=== PATIENT | male | born 1955 | race Caucasian/White ===

== ENCOUNTER 2021-10-31 09:19 | Outpatient (CLI) | payer OTHER, SELFPAY ==
--- NOTE | 2021-10-31 10:34 | ECG_ITS ---
Measurements Intervals [place] Rate: 63 P: 62 MN: 167 QRS: 5 QRSD: 88 T: 4 QT: 392 QTc: 404 Interpretive Statements SINUS RHYTHM INCOMPLETE RIGHT BUNDLE BRANCH BLOCK BASELINE ARTIFACT- I, II, III, AVR, AVL BORDERLINE ECG Electronically Signed On 10-31-2021 10:49:29 FIELD SERVICE SUPERVISOR by Piotr Harris D.O.
[2021-10-31 11:18] LABS: Basophils Percent Auto 0.4 % (0.2-1.2); Eosinophils Absolute Auto 0.2 K/mm3 (0-0.3); Eosinophils Percent Auto 2.7 % (0-4.4); Hematocrit 44.8 % (42.0-52.0); Hemoglobin 15.5 g/dL (14.0-18.0); Immature Granulocyte Absolute 0.03 K/mm3 (0.00-0.031); Immature Granulocyte Percent A 0.4 % (0-0.5); Lymphocytes Absolute Auto 2.05 K/mm3 (0.9-3.2); Lymphocytes Percent Auto 26.2 % (18.3-44.2); Mean Corpuscular HGB Conc 34.6 g/dl (32-36); Mean Corpuscular Hemoglobin 32.4 pg (26-34); Mean Corpuscular Volume 93.7 fl (80-100); Mean Platelet Volume 10.7 fl (7.4-10.4); Monocytes Absolute Auto 0.9 K/mm3 (0.1-0.6); Monocytes Percent Auto 11.2 % (2.6-8.5); Neutrophils Absolute Auto 4.6 K/mm3 (1.3-6.7); Neutrophils Percent Auto 59.1 % (45.5-73.1); Platelet Count Result 245 k/mm3 (150-375); Red Blood Count 4.78 M/mm3 (4.6-6.20); Red Cell Distribution Width 12.4 % (11.5-14.5); White Blood Count 7.8 K/mm3 (4.5-10.0)
[2021-10-31 11:30] LABS: Alanine Aminotransferase 34 U/L (4-50); Albumin Level 4.6 g/dL (3.5-5.1); Alkaline Phosphatase 74 U/L (38-126); Anion Gap 8 mmol/L (8-16); Aspartate Amino Transferase 28 U/L (17-59); Blood Urea Nitrogen 15 mg/dL (9-20); Calcium 9.5 mg/dL (8.4-10.2); Carbon Dioxide 27 mmol/L (22-30); Chloride 103 mmol/L (98-107); Estimated Glomerular Filt Rate > 60; Glucose 86 mg/dL (65-110); Potassium 4.2 mmol/L (3.4-5.0); Sodium 138 mmol/L (137-145)
[2021-10-31 11:42] LABS: Prothrombin Time 13.5 Seconds (11.1-14.7)
[2021-10-31 11:43] LABS: Partial Thromboplastin Time 31.7 SECONDS (22.3-36.8)
== END 2021-10-31 09:20 | disposition home or self-care (01) ==
LOC: ANHSURGERY 09:24
PROVIDERS: PCP Internal Medicine; Visit Provider Urology
DX: Z01.818 Encounter for other preprocedural examination (principal); C61 Malignant neoplasm of prostate; I45.10 Unspecified right bundle-branch block; Z51.81 Encounter for therapeutic drug level monitoring; Z79.899 Other long term (current) drug therapy
CPT/HCPCS: 36415; 80053; 85025; 85610; 85730; 86850; 86900; 86901; 93005

== ENCOUNTER 2021-11-13 09:15 | Inpatient (IN) | payer OTHER, MEDICARE, SELFPAY ==
[2021-10-31 09:39] VITALS: BMI 33.4
--- NOTE | 2021-10-31 10:10 | PC.NURSE ---
Report to the Outpatient Waiting Room, entrance under the green pavilion located off [facility], at time _0600 on date __11/11/21 . OR Time: . - You and your visitor will be asked a series of questions to screen for COVID 19 for your protection. - A mask is required within the hospital. - NO VISITORS ALLOWED AT THIS TIME Preoperative COVID Testing Requirements: No COVID Test needed if: (proof is required; if not received patient will have Rapid Test prior to entry) - Patient has received COVID Vaccine at least 14 days prior to procedure date or - Patient has positive COVID test result within last 90 days of surgery date. COVID Test needed if above criteria is not met If not COVID vaccinated a COVID test must be conducted within 72 hours of surgery and patient is asked to isolate self from time of testing until procedure. You will go to the [facility] for your COVID testing. The [facility] Testing site is located at the corner of [address] [facility]. You will only be called if COVID results are positive and your surgeon may reschedule your elective surgery date. Patients may have clear liquids (water, carbonated beverages, clear teas, apple juice) until 3 hours prior to surgery with a maximum of 20 ounces. - No food from midnight until time of surgery - Infants may have breast milk until 4 hours before surgery, infant formula 6 hours prior to surgery. - Children will be allowed to drink immediately following surgery. If applicable, please bring a bottle or sippy cup to assist with drinking. Juice, water, soda, and popsicles are readily available. For infants on formula, please bring formula the day of surgery. Pacifiers are allowed. Take the following medications with a SIP of water the morning of surgery: ___NONE Medications to discontinue per physician NO ASPIRIN,IBUPROFEN,ALEVE,MOTRIN 7 DAYS PRE OP Date to take last dose Please no make-up, nail serbian, hairspray, perfume, deodorant, or body powder the day of surgery. No jewelry (including any body piercings) or valuables the day of surgery, leave them at home. Please take a shower or bath the night before, or the morning of, surgery with an antibacterial soap. Wear comfortable, loose fitting clothing. Children are encouraged to wear pajamas. - Jewelry must be removed prior to entering the operating room. Rings and piercings that are not removed may be cut off. - The hospital will not accept responsibility for valuables. - Please leave all valuables, including medications, at home the day of surgery. If you are going home after surgery, a licensed wrecking car driver must drive you home. - NO public transportation without another adult. - We recommend that an adult stay with you for 24 hours following discharge. - We also recommend that you do not drive, make important decision, drink alcoholic beverages, or take any drugs that were not prescribed by your health care provider for at least 24 hours after your discharge time. For Pediatric surgeries, we recommend two adults accompany the child home (only one inside the building at this time). Follow any additional instructions given to you from your surgeon. Telephone instructions given to __PT and asked if any additional questions and then verbalized understanding. Patient advised to call surgeon office or pre surgery nurse liaison [phone] if any additional questions.
[2021-10-31 10:25] VITALS: BP 140/90; PULSE 71; RESP 18; TEMP 36.7; O2SAT 98
[2021-11-11] VITALS (8 sets, daily range): BP systolic 99–136; BP diastolic 64–85; PULSE 60–76; RESP 10–20; TEMP 35.6–36.2; O2SAT 91–100
--- NOTE | 2021-11-11 06:51 | WPDANESEPPF ---
Anes - Initial Pre Proc Eval Procedure: Operation Date: 11/11/21 07:30 Proposed Procedures p Robotic Assisted Laparoscopic Nerve Sparing Prostatectomy with Possible Pelvic Lymph Node Dissection - Kurtis Plaza MD Date/Time: 11/11/21 06:51 Surgeon: Kurtis Plaza MD Pre Op Diagnosis: prostate cancer Patient Data Age: 66 Gender: M Height: 1.83 m Weight: 111.8 kg Last Vital Signs Temp 36.7 C 10/31/21 10:25 Pulse 71 10/31/21 10:25 Resp 18 10/31/21 10:25 BP 140/90 10/31/21 10:25 Pulse Ox 98 10/31/21 10:25 Allergies Allergy/AdvReac Type Severity Reaction Status Date / Time No Known Allergies Allergy Verified 11/11/21 06:09 Home Medications Medication Instructions Recorded Confirmed Type losartan 100 mg tablet See Rx Instructions .ROUTE 09/04/21 11/11/21 Rx .COMPLEX #90 tablet atorvastatin 10 mg PO HS 10/31/21 11/11/21 History calcipotriene [Dovonex] 1 applic TOPICAL PRN PRN 10/31/21 10/31/21 History hydrochlorothiazide 25 mg PO DAILY 10/31/21 11/11/21 History mometasone 1 applic TOPICAL PRN PRN 10/31/21 10/31/21 History Patient hx anesthesia problems: none Family hx anesthesia problems: none Results Review: All pre-operative results and documents have been reviewed as part of the pre-operative evaluation. PENDING SALE TO [facility] Past Medical History Medical History ETOH abuse 4-5 drinks every other day Hyperlipidemia Hypertension Surgical History Surgical History Hx of cataract removal with insertion of prosthetic lens September 2020 and October 2020 Family History Family History Mother Patient's mother is in good health Sibling Patient's brother is in good health Father Family history of emphysema Patient's father is Social History Social History Social History: quit smoking 20 years ago, 1-1.5 PPd x 20 years prior Smoking packs per day: 1.5 Smoking cigarettes per day: 30.0 Years smoked: 25 Smoking pack-years: 37.50 Smoking status: Former smoker Tobacco type: cigarettes Smoking end date: 10/04/03 Alcohol intake: current Drinks per week: 14 Living arrangements: with family Spiritual care concerns: No Anes - Eval Final PreProcedure Day of Procedure 11/11/21 06:51 Patient weight: obese Heart: regular rate and rhythm Lungs: clear to auscultation Airway: Mallampati scale class II Neurological: alert and oriented Last oral intake: >/= 8 hours ASA classification: III Emergent: no Anesthetic plan: proceed Anesthesia type and monitoring: general ETT and standard monitoring Results Review: All pre-operative results and documents have been reviewed as part of the pre-operative evaluation. Informed Consent: The patient's anesthetic plan and its attendant risks and benefits were discussed with the patient/family/POA. Questions were solicited and answers provided to the satisfaction of the patient/family/POA.
[2021-11-11] MEDS: LACTATED RINGERS 1,000 ML 30 ML IV CONT ×2 (06:54→11:38)
--- NOTE | 2021-11-11 07:20 | WPDHPUPDATE1 ---
History and Physical Update Update Date/Time: 11/11/21 07:20 History and Physical has been reviewed, including an updated exam of the patient. There are NO changes in the patient's condition. Risks, benefits, and alternatives have been discussed and questions answered. Patient agrees to proceed with procedure. Proced with robotic assist nerve sparing prostatectomy with possible pelvic lymph node dissection
[2021-11-11] MEDS: ceFAZolin 2 GM/D5W 50 ML 2 GM/50 ML BAG IVPB (07:29)
[2021-11-11] MEDS: BUPIVACAINE HCL 0.5% PF 30 ML VIAL INFILTRATE ×2 (08:26→11:15)
--- NOTE | 2021-11-11 11:22 | P.OP_ITS ---
Procedure Note - Detailed Date of Procedure 11/11/21 Pre-op Diagnosis prostate cancer Post-op Diagnosis same Procedure Performed Robotic assisted nerve-sparing prostatectomy with bilateral pelvic lymphadenectomy Surgeon Kurtis Plaza MD Anesthesia general Description of Procedure Patient is taken to the operative suite correctly identified. Once anesthesia was obtained he was placed in dorsal lithotomy position prepped and draped usual sterile fashion. Eighteen Indonesian Lewis with 20 cc were placed in the balloon. Supraumbilical incision was made carried down to the rectus fascia. Veress needle was inserted in the abdomen insufflated to 15 mmHg pressure. Camera port was placed under direct vision. Working ports were then placed in appropriate location. Patient was placed in steep Trendelenburg position and the robot was docked. Posterior approach was taken. Seminal vesicles were dissected out in their entirety the vas were transected. Plane between the prostate and rectum was developed. Bladder was then taken down the space of Retzius was developed. Puboprostatic were taken down. Endopelvic fascia had been opened bilaterally. Dorsal venous complex was isolated using 0 Vicryl. This was secured to the pubic bone. He then had a bladder neck sparing procedure performed. The posterior sheath was incised and the seminal vesicles were visualized. Pedicles were clipped. Bilateral nerve-sparing was performed however the left side was taken more liberally given the amount of cancer and firmness of the prostate. Dorsal venous complex was transected. Urethra was then also transected. Specimen was placed in Endo-Catch bag. Bilateral pelvic lymphadenectomies were performed with the boundaries being the external iliac vein, obturator nerve, Andriy's ligament common bifurcation of the vessels. The right pelvic lymph nodes packet was identified using a clip. These also were placed in the end Endo-Catch bag. Hemostasis was adequate at this time. Surgicel was placed in the obturator fossa was then over the neurovascular bundles. A Daniel stitch was then placed using 0 Vicryl. The lock suture was then used in a running fashion to approximate the bladder neck to the urethra. There was good mucosa to mucosa approximation. Eighteen Indonesian Lewis was placed with 10 cc in the balloon. Bladder was filled with 200 cc of saline. There was no evidence of extravasation at this time. All lap count needle counts sponge counts and needle counts were correct. The robot was then undocked. Specimen was brought out through the midline incision. This was then closed using 0 Vicryl in a running fashion. Subcuticular stitches were then placed. The port sites were anesthetized with 1% lidocaine. He Jesus-Still drain was then placed with a 4th arm port site. Patient tolerated procedure well without any complications taken recovery stable condition. Estimated Blood Loss 100 Drains Yes Packing No Pathology yes Complications No immediate complications Condition stable Disposition PACU
[2021-11-11] MEDS: fentaNYL CITRATE INJ (*CRX) 100 MCG/2 ML VIAL 25 MCG IV PUSH ×8 (11:45→12:20)
[2021-11-11] MEDS: MORPHINE SULFATE (*CRX) 2 MG/ML INJ 1 MG IV PUSH (13:14)
[2021-11-11] MEDS: LACTATED RINGERS 1,000 ML 125 ML IV CONT ×2 (14:05→22:06)
[2021-11-11] MEDS: HYDROcodone/acetaminophen (*CRX) 5-325 MG TABLET 2 TAB PO (16:23)
--- NOTE | 2021-11-11 16:25 | PC.NURSE ---
This patient, Mingo Huerta, was admitted to [facility]. Patient oriented to hospital policies and general routines including ID bracelet, bed and alarms, visiting hours, pain management, procedures, bathroom and other care routines, personal items, smoking policy, room service/diet, and visiting hours. Information on how to activate the Rapid Response Team has been discussed. Patient are encouraged to report perceived risks to care and to ask questions if they do not understand what they are told or what they should do.
[2021-11-11] MEDS: DOCUSATE SODIUM 100 MG CAPSULE PO (17:11)
[2021-11-11] MEDS: KETOROLAC 15 MG/ML VIAL (*BKC) IV PUSH ×2 (18:43→23:58)
--- NOTE | 2021-11-11 19:11 | PC.NURSE ---
REPORT GIVEN TO EZEKIEL LAWRENCE.
[2021-11-11] MEDS: ATORVASTATIN 10 MG TABLET PO (21:36)
[2021-11-12 04:00] VITALS: BP 135/80; PULSE 72; RESP 18; TEMP 36.7; O2SAT 94
[2021-11-12 04:39] LABS: Hematocrit 40.2 % (42.0-52.0); Hemoglobin 13.5 g/dL (14.0-18.0)
[2021-11-12 04:49] LABS: Anion Gap 4 mmol/L (8-16); Blood Urea Nitrogen 11 mg/dL (9-20); Calcium 8.8 mg/dL (8.4-10.2); Carbon Dioxide 29 mmol/L (22-30); Chloride 101 mmol/L (98-107); Estimated CRCL calculation 84 ml/min; Estimated Glomerular Filt Rate > 60; Glucose 108 mg/dL (65-110); Sodium 134 mmol/L (137-145)
[2021-11-12 06:00] VITALS: RESP 20
[2021-11-12] MEDS: LACTATED RINGERS 1,000 ML 125 ML IV CONT ×2 (06:20→20:36)
[2021-11-12] MEDS: ONDANSETRON INJ 4 MG/2 ML VIAL IV PUSH ×3 (06:41→17:47)
[2021-11-12 08:00] VITALS: BP 157/82; PULSE 74; RESP 20; TEMP 36.7; O2SAT 94
--- NOTE | 2021-11-12 08:13 | WPDANESPN ---
Anes - Prog Note Post-Op Date/Time: 11/12/21 08:13 Cardiovascular status: normal Respiratory status: normal Airway patency: baseline Mental status: baseline Post-Op hydration status: normal Vital Signs: Last Vital Signs Temp 36.7 C 11/12/21 04:00 Pulse 72 11/12/21 04:00 Resp 20 11/12/21 06:00 BP 135/80 11/12/21 04:00 Pulse Ox 94 11/12/21 04:00 Pain Score (VAS): 310 I/O: Intake & Output 11/11/21 11/12/21 11/12/21 23:59 07:59 15:59 Intake Total 2370 1000 Output Total 630 410 Balance 1740 590 Laboratory Tests 11/12/21 04:23 11/12/21 04:23 11/12/21 11/12/21 04:23 04:23 Hgb 13.5 L Hct 40.2 L Sodium 134 L Potassium 4.0 Chloride 101 Carbon Dioxide 29 Anion Gap 4 L BUN 11 Creatinine 1.00 Estim Creat Clear Calc 84 Estimated GFR > 60 Glucose 108 Calcium 8.8 Post-procedural complaints: none Patient Feedback: Patient satisfied with anesthetic care.
[2021-11-12] MEDS: hydroCHLOROthiazide 25 MG TABLET PO (09:01)
[2021-11-12] MEDS: DOCUSATE SODIUM 100 MG CAPSULE PO ×2 (09:01→16:38)
[2021-11-12] MEDS: levoFLOXacin 500 MG TABLET PO (09:01)
[2021-11-12] MEDS: KETOROLAC 15 MG/ML VIAL (*BKC) IV PUSH (09:22)
--- NOTE | 2021-11-12 13:32 | WPDUROPN2 ---
Progress Note: A&P Assessment and Plan (1) Prostate cancer: Code(s): C61 - Malignant neoplasm of prostate Status: Acute Assessment and Plan: Will keep tonight d/t ongoing nausea and vomiting. Re-start IV fluids, slowly re-introduce oral fluids and po intake. Encouarge use of Incentive spirometer and activity. He is aware that a BM is typically delayed after surgery. I think his nausea is secondary to constipation and or anesthesia/pain medications. He refuses to take narcotics at this time d/t worsening constipation, we will suggest Tylenol instead for pain. Subjective Subjective Date/Time Seen: 11/12/21 13:32 POD #1 Robotic assisted nerve-sparing prostatectomy with bilateral pelvic lymphadenectomy Patient doing well, he tolerated oatmeal for breakfast but has a lack of appetite now d/t nausea, passing flatus and pain is under control. He has not had any narcotics today d/t fear of worsening constipation. He is nauseated, has had one emesis episode today, and feels the need to have a BM but is constipated, which I explained is normal post op. He continues on a stool softner. He has a low grade temp of 99, denies chest pain or shortness of breath. He has a post covid cough, which is not new for him. CALEB drain output is 55cc this shift. Urine is draining to gravity in cordon. Review of Systems Cardiovascular: Cardiovascular: Denies chest pain and Denies diaphoresis Respiratory: Respiratory: Reports no additional respiratory complaints Gastrointestinal: Gastrointestinal: Denies abdominal pain, Reports constipation, Reports nausea and Reports vomiting Genitourinary: Genitourinary: Reports hematuria, Denies dysuria and Denies flank pain Exam Resp: Effort & Inspection: normal respiratory effort Cardio: Rate: regular rate GI: Inspection: incision (all are well approximated, no drainage, edema or redness) GI Palp: Yes Soft to palpation and Yes Tenderness to palpation present (GI) : General: Yes no CVA tenderness Urinary Catheter: Urinary Catheter: patent and draining, urine clear and urine pink Extrem: General: no edema Objective Data Vital Signs Vital Signs: Vital Signs - 24 hr 11/11/21 14:59 11/11/21 20:00 11/12/21 04:00 Temperature 96.1 F L 98.0 F Pulse Rate 70 76 72 Respiratory Rate 16 20 18 Blood Pressure 119/81 136/79 135/80 Pulse Oximetry 91 94 94 11/12/21 06:00 11/12/21 08:00 Temperature 98.0 F Pulse Rate 74 Respiratory Rate 20 20 Blood Pressure 157/82 H Pulse Oximetry 94 Intake/Output Intake/Output: Intake & Output 11/09/21 11/10/21 11/11/21 11/12/21 23:59 23:59 23:59 23:59 Intake Total 3420 1560 Output Total 700 410 Balance 2720 1150 Meds/Results Medications: Active Medications Generic Name Dose Route Start Last Admin Trade Name Freq PRN Reason Stop Dose Admin Hydrocodone Bitart/Acetaminophen 1 tab 11/11/21 12:52 Hydrocodone/Acetaminophen (*Crx) 5-325 Mg Tablet PO Q6H PRN Pain Rated 1-3 Hydrocodone Bitart/Acetaminophen 2 tab 11/11/21 12:52 11/11/21 16:23 Hydrocodone/Acetaminophen (*Crx) 5-325 Mg Tablet PO 2 tab Q6H PRN Administration Pain Rated 4-6 Atorvastatin Calcium 10 mg 11/11/21 21:00 11/11/21 21:36 Atorvastatin 10 Mg Tablet PO 10 mg HS ARMIDA Administration Docusate Sodium 100 mg 11/11/21 17:00 11/12/21 09:01 Docusate Sodium 100 Mg Capsule PO 100 mg BID ARMIDA Administration Hydrochlorothiazide 25 mg 11/12/21 09:00 11/12/21 09:01 Hydrochlorothiazide 25 Mg Tablet PO 25 mg DAILY ARMIDA Administration Hyoscyamine 0.125 mg 11/11/21 12:52 Hyoscyamine Sulfate 0.125 Mg Tablet SUBLINGUAL Q4H PRN Bladder Spasm Lactated Ringer's 1,000 mls @ 125 mls/hr 11/11/21 12:52 11/12/21 06:20 Lr - Lactated Ringers Iv IV CONT 125 mls/hr .Q8H ARMIDA Administration Levofloxacin 500 mg 11/12/21 09:00 11/12/21 09:01 Levofloxacin 500 Mg Tablet PO 500 mg DAILY ARMIDA Admini
--- NOTE | 2021-11-12 13:39 | PC.NURSE ---
Pt vomited after lunch, zofran given. Karina notified. Will wait to discharge pt until he feels better
[2021-11-12 14:00] VITALS: BP 152/85; PULSE 84; RESP 16; TEMP 37.2; O2SAT 94
[2021-11-12] MEDS: ACETAMINOPHEN 500 MG TABLET 1000 MG PO (16:37)
[2021-11-12 20:00] VITALS: BP 165/97; PULSE 80; RESP 18; TEMP 36.8; O2SAT 80
[2021-11-12] MEDS: hydrALAZINE HCL 20 MG/ML VIAL 5 MG IV PUSH (21:51)
[2021-11-12 22:30] VITALS: BP 162/91; PULSE 78; RESP 18; O2SAT 96
[2021-11-13] VITALS (8 sets, daily range): BP systolic 150–169; BP diastolic 83–91; PULSE 80–90; RESP 18–20; TEMP 36.3–37.5; O2SAT 94–98
--- NOTE | ~2021-11-13 | XR_ITS ---
EXAMINATION: XR abdomen NG/feed tube rechec DATE: 11/12/2021 20:13 INDICATION: Nasogastric tube advancement. TECHNIQUE: An upright view of the abdomen was obtained. COMPARISON: Abdomen radiograph at 7:57 PM FINDINGS: There is gaseous distention of the proximal colon. The small bowel is normal in caliber. Th e nasogastric tube tip is in the stomach. The lower abdomen is excluded. IMPRESSION: 1. Nasogastric tube tip in the stomach. 2. Gaseous distention of the proximal colon, likely adynamic ileus. Reviewed, dictated and finalized at location A. MA SURGEON
--- NOTE | ~2021-11-13 | XR_ITS ---
EXAMINATION: XR abdomen/kub 1V DATE: 11/12/2021 18:49 INDICATION: Nausea and vomiting. TECHNIQUE: A supine view of the abdomen on 2 radiographs was obtained. COMPARISON: CT abdomen and pelvis 10/06/2013 FINDINGS: There is gaseous distention of the colon. The small bowel is normal in caliber. A surgical drain overlies the pelvis. There is extensive soft tissue gas in the pelvis. IMPRESSION: 1. Gaseous distention of the colon, likely adynamic ileus. 2. Extensive soft tissue gas in the pelvis, likely from recent injury. Reviewed, dictated and finalized at location A. BLAST OR SHOTBLAST EQUIPMENT TENDER
--- NOTE | ~2021-11-13 | XR_ITS ---
EXAMINATION: XR abdomen NG/feed tube insert DATE: 11/12/2021 20:12 INDICATION: Nasogastric tube placement. TECHNIQUE: An upright view of the abdomen was obtained. COMPARISON: None. FINDINGS: The lower abdomen and right lateral aspect of the abdomen are excluded. The nasogastric tub e tip is at the gastroesophageal junction. IMPRESSION: 1. Nasogastric tube tip at the gastroesophageal junction. Reviewed, dictated and finalized at location A. RVISOR RUBBER COVERING
[2021-11-13] MEDS: ONDANSETRON INJ 4 MG/2 ML VIAL IV PUSH ×2 (00:28→07:16)
[2021-11-13] MEDS: LACTATED RINGERS 1,000 ML 125 ML IV CONT ×3 (05:11→22:42)
--- NOTE | 2021-11-13 07:57 | WPDUROPN2 ---
Progress Note: A&P Assessment and Plan (1) Prostate cancer: Code(s): C61 - Malignant neoplasm of prostate Status: Acute Assessment and Plan: Doing well from urologic standpoint but now with ileus and coffee ground emesis /fluid. Will obtain cbc anc cmp Will need GI consult for their input (2) Ileus: Code(s): K56.7 - Ileus, unspecified Status: Acute Assessment and Plan: Continue with NGT and NPO. GI consult for coffee ground emesis. Subjective Subjective Date/Time Seen: 11/13/21 07:57 Post Op day: 2 Principal diagnosis: adenocarcinoma of prostate Interval history: Mingo had nausea with emesis last night. KUB with possibly adynamic ileus. NG tube place now with coffee ground drainage. Denied any prior history of gi issues. Review of Systems Review of Systems: All systems reviewed & are unremarkable except as noted in HPI and below Gastrointestinal: Gastrointestinal: Reports coffee ground emesis Exam Const: General: cooperative Resp: Effort & Inspection: normal respiratory effort Cardio: Rate: regular rate Rhythm: regular rhythm GI: Inspection: distended Objective Data Vital Signs Vital Signs: Vital Signs - 24 hr 11/12/21 08:00 11/12/21 14:00 11/12/21 20:00 Temperature 36.7 C 37.2 C 36.8 C Pulse Rate 74 84 80 Respiratory Rate 20 16 18 Blood Pressure 157/82 H 152/85 H 165/97 H Pulse Oximetry 94 94 80 L 11/12/21 22:30 11/13/21 00:00 11/13/21 04:30 Temperature 36.6 C 36.3 C L Pulse Rate 78 83 90 Respiratory Rate 18 18 18 Blood Pressure 162/91 H 160/91 H 164/90 H Pulse Oximetry 96 96 96 11/13/21 06:00 Temperature Pulse Rate Respiratory Rate 20 Blood Pressure Pulse Oximetry Intake/Output Intake/Output: Intake & Output 11/10/21 11/11/21 11/12/21 11/13/21 23:59 23:59 23:59 23:59 Intake Total 3420 2760 1000 Output Total 700 1340 1070 Balance 2720 1420 -70 Meds/Results Medications: Active Medications Generic Name Dose Route Start Last Admin Trade Name Freq PRN Reason Stop Dose Admin Acetaminophen 1,000 mg 11/12/21 16:16 11/12/21 16:37 Acetaminophen 500 Mg Tablet PO 1,000 mg Q6H PRN Administration Mild Pain (1-3) or Fever Hydrocodone Bitart/Acetaminophen 2 tab 11/11/21 12:52 11/11/21 16:23 Hydrocodone/Acetaminophen (*Crx) 5-325 Mg Tablet PO 2 tab Q6H PRN Administration Pain Rated 4-6 Atorvastatin Calcium 10 mg 11/11/21 21:00 11/12/21 20:38 Atorvastatin 10 Mg Tablet PO Not Given HS [facility] Docusate Sodium 100 mg 11/11/21 17:00 11/12/21 16:38 Docusate Sodium 100 Mg Capsule PO 100 mg BID ARMIDA Administration Hydrochlorothiazide 25 mg 11/12/21 09:00 11/12/21 09:01 Hydrochlorothiazide 25 Mg Tablet PO 25 mg DAILY ARMIDA Administration Hyoscyamine 0.125 mg 11/11/21 12:52 Hyoscyamine Sulfate 0.125 Mg Tablet SUBLINGUAL Q4H PRN Bladder Spasm Lactated Ringer's 1,000 mls @ 125 mls/hr 11/11/21 12:52 11/13/21 05:11 Lr - Lactated Ringers Iv IV CONT 125 mls/hr .Q8H ARMIDA Administration Levofloxacin 500 mg 11/12/21 09:00 11/12/21 09:01 Levofloxacin 500 Mg Tablet PO 500 mg DAILY ARMIDA Administration Losartan Potassium 100 mg 11/12/21 21:00 11/12/21 20:39 Losartan Potassium 100 Mg Tablet PO Not Given HS [facility] Morphine Sulfate 1 mg 11/11/21 12:52 11/11/21 13:14 Morphine Sulfate (*Crx) 2 Mg/Ml Inj IV PUSH 1 mg Q2H PRN Administration Pain Rated 7-10 Naloxone HCl 0.1 mg 11/11/21 12:52 Naloxone Hcl 0.4 Mg/Ml Vial IV PUSH Q2M PRN Opiate Reversal Ondansetron HCl 4 mg 11/11/21 12:52 11/13/21 07:16 Ondansetron Inj 4 Mg/2 Ml Vial IV PUSH 4 mg Q6H PRN Administration Nausea And Vomiting Radiology Results: ITS Impressions Abdomen X-Ray 11/12/21 20:15 IMPRESSION: 1. Nasogastric tube tip in the stomach. 2. Gaseous distention of the proximal colon, likely adynamic ileus.
[2021-11-13] MEDS: FAMOTIDINE 20 MG/2 ML VIAL IV PUSH (08:47)
[2021-11-13 10:58] LABS: Basophils Percent Auto 0.2 % (0.2-1.2); Eosinophils Percent Auto 0.1 % (0-4.4); Hematocrit 40.7 % (42.0-52.0); Hemoglobin 14.1 g/dL (14.0-18.0); Immature Granulocyte Absolute 0.06 K/mm3 (0.00-0.031); Immature Granulocyte Percent A 0.5 % (0-0.5); Lymphocytes Absolute Auto 1.05 K/mm3 (0.9-3.2); Lymphocytes Percent Auto 8.5 % (18.3-44.2); Mean Corpuscular HGB Conc 34.6 g/dl (32-36); Mean Corpuscular Hemoglobin 33.2 pg (26-34); Mean Corpuscular Volume 95.8 fl (80-100); Mean Platelet Volume 10.5 fl (7.4-10.4); Monocytes Percent Auto 7.8 % (2.6-8.5); Neutrophils Absolute Auto 10.3 K/mm3 (1.3-6.7); Neutrophils Percent Auto 82.9 % (45.5-73.1); Platelet Count Result 180 k/mm3 (150-375); Red Blood Count 4.25 M/mm3 (4.6-6.20); Red Cell Distribution Width 12.7 % (11.5-14.5); White Blood Count 12.4 K/mm3 (4.5-10.0)
[2021-11-13 11:07] LABS: Alanine Aminotransferase 19 U/L (4-50); Alkaline Phosphatase 60 U/L (38-126); Anion Gap 4 mmol/L (8-16); Aspartate Amino Transferase 27 U/L (17-59); Bilirubin,Total 0.8 mg/dL (0.2-1.3); Blood Urea Nitrogen 9 mg/dL (9-20); Calcium 8.7 mg/dL (8.4-10.2); Carbon Dioxide 30 mmol/L (22-30); Chloride 97 mmol/L (98-107); Estimated CRCL calculation 103 ml/min; Estimated Glomerular Filt Rate > 60; Glucose 116 mg/dL (65-110); Potassium 3.1 mmol/L (3.4-5.0); Sodium 131 mmol/L (137-145)
[2021-11-13] MEDS: POTASSIUM CHLORIDE INJ 40 MEQ in SODIUM CHLORIDE 0.9% IV 500 ML 130 MEQ IVPB (13:35)
--- NOTE | 2021-11-13 14:56 | WPDGICN ---
Assessment and Plan Assessment and plan (1) Coffee ground emesis: Code(s): K92.0 - Hematemesis Status: Acute Assessment and Plan: will start iv protonix bid monitor for more signs of bleeding and proceed with EGD tomorrow, differential could be esophagitis, ulcers, etc (2) Ileus: Code(s): K56.7 - Ileus, unspecified Status: Acute Assessment and Plan: ngt in place, will reassess tomorrow npo status now (3) Gastro-esophageal reflux disease without esophagitis: Code(s): K21.9 - Gastro-esophageal reflux disease without esophagitis Status: Acute Assessment and Plan: iv protonix (4) Prostate cancer: Code(s): C61 - Malignant neoplasm of prostate Status: Acute Assessment and Plan: surgery went well by urology (5) History of colon polyps: Code(s): Z86.010 - Personal history of colonic polyps Status: Acute GI Consult Note Consult date/time: 11/13/21 14:56 Reason for consult: coffee ground emesis HPI: Mingo Huerta is a 66 year old male who had robotic assisted nerve-sparing prostatectomy with bilateral pelvic lymphadenectomy 11/11/21, day after surgery started with nausea and vomiting coffee ground material, NGT was placed that showed more dark material and KUB showed ileus. He has not had BM but passing gas. says that patient lately has been having more GERD symptoms, using tums. He also lost about 20 lb after doing keto diet, drinking lemon with vinegar. He never had EGD, had colonoscopy 2019 with polyps removed. He was started on pepcid iv. Review of Systems Constitutional: Constitutional: Denies chills Eyes: Eyes: Reports no additional eye complaints ENT: Reports Normal hearing present Cardiovascular: Cardiovascular: Denies chest pain Respiratory: Respiratory: Denies dyspnea Gastrointestinal: Gastrointestinal: Reports heartburn, Reports nausea and Reports vomiting Genitourinary: Comments: cordon in place Musculoskeletal: Musculoskeletal: Denies back pain Integumentary/Breasts: Skin/Breast: Denies dry skin Neurologic: Denies headache(s) Psychiatric: Psychiatric: Denies behavioral changes [facility] Past Medical History Medical History (Updated 11/13/21 @ 15:02 by Lb Ascencio MD) Coffee ground emesis ETOH abuse 4-5 drinks every other day Hyperlipidemia Hypertension Surgical History Surgical History Hx of cataract removal with insertion of prosthetic lens September 2020 and October 2020 Family History Family History Mother Patient's mother is in good health Sibling Patient's brother is in good health Father Family history of emphysema Patient's father is Social History Social History Social History: quit smoking 20 years ago, 1-1.5 PPd x 20 years prior Smoking packs per day: 1.5 Smoking cigarettes per day: 30.0 Years smoked: 25 Smoking pack-years: 37.50 Smoking status: Former smoker Tobacco type: cigarettes Smoking end date: 10/04/03 Alcohol intake: current Drinks per week: 14 Substance use: never Living arrangements: with family Spiritual care concerns: No Meds Home Medications and Allergies Home Medications Medication Instructions Recorded Confirmed Type atorvastatin 10 mg PO HS 10/31/21 11/11/21 History calcipotriene [Dovonex] 1 applic TOPICAL PRN PRN 10/31/21 10/31/21 History hydrochlorothiazide 25 mg PO DAILY 10/31/21 11/11/21 History mometasone 1 applic TOPICAL PRN PRN 10/31/21 10/31/21 History docusate sodium 100 mg PO BID #10 cap 11/12/21 Rx hydrocodone-acetaminophen 1 tablet PO Q6H PRN #20 tablet 11/12/21 Rx losartan 100 mg PO DAILY 11/12/21 11/12/21 History ondansetron 4 mg PO Q8H #20 tablet 11/12/21 Rx sulfamethoxazole-trimethoprim 1 tablet PO Q12H #
--- NOTE | 2021-11-13 19:10 | PC.NURSE ---
1800: RN changed linens on bed and patient's gown.
--- NOTE | 2021-11-13 19:58 | PM.IMCN ---
Assessment and Plan Assessment and plan (1) Coffee ground emesis: Code(s): K92.0 - Hematemesis Status: Acute Assessment and Plan: the patient has an NG tube in was started on Protonix. GI has been consulted. The patient is NPO. Possible EGD per GI specialist tomorrow. Continue to monitor H&H every 6 hours. Transfuse when appropriate. At this time they appear to be normal. (2) Ileus: Code(s): K56.7 - Ileus, unspecified Status: Acute Assessment and Plan: The patient has an NG tube to the right nare. according to the nursing staff the patient had completely filled a 1-1/2 canisters. The patient has some very faint hypoactive bowel sounds. I did encourage the patient to get up and walk around and he stated that he is passing gas and passed some liquid stool. May consider surgical consult. (3) Prostate cancer: Code(s): C61 - Malignant neoplasm of prostate Status: Acute Assessment and Plan: Status post prostatectomy. The patient continues to have a CALEB drain. The patient appears to have p.o. Levaquin on his Dec however the patient is NPO at this time. May consider changing p.o. medication to IV. Postop care per Urology. (4) Hyperlipidemia: Code(s): E78.5 - Hyperlipidemia, unspecified Status: Acute Assessment and Plan: The patient is NPO at this time. The patient had been dieting and exercising for weight loss. (5) Essential (primary) hypertension: Code(s): I10 - Essential (primary) hypertension Status: Acute Assessment and Plan: The patient had been on losartan and hydrochlorothiazide at home. However he is NPO so I did p.r.n. hydralazine. (6) Hypokalemia: Code(s): E87.6 - Hypokalemia Status: Acute Assessment and Plan: replace as necessary. Patient has an NG drain as well as a CALEB drain. Which may cause his potassium to be low. The patient was also on hydrochlorothiazide. check magnesium level HPI Data of Consult Consult date: 11/13/21 Requesting Physician: Kurtis Plaza MD Primary Care Provider: Josemanuel Banegas, Consult Narrative Narrative: Mingo Huerta is a 66 year old male who has a history of having prostate cancer and on 11/11/2019 to had a robotic assisted nerve-sparing prostatectomy with bilateral pelvic lymphadenectomy. The patient became nauseated was having emesis. Patient also had a low-grade temperature of 99?. The patient currently has a CALEB drain to the right side of his mid abdomen. The patient had been doing well but then developed an ileus and coffee-ground emesis. GI was consulted. The patient was started on IV Protonix. He has an NG tube in place with copious amount of drainage. The patient was up walking around when I saw him today. He states that he is passing gas. He also stated that he had a liquid stool and it made him feel somewhat better today. His last colonoscopy was 2018 was some polyps removed. He has never had an EGD. Dr. Sotelo GI specialist has seen the patient. According to GI notes the patient may proceed with an EGD tomorrow. the patient's H&H is 14.1 and 40.7 this morning. His sodium is 131. However he does have drainage from his CALEB drain as well as an NG tube. His potassium was found to be 3.1 today and was supplemented.The patient had been admitted to inpatient and the hospitalist group was asked to consult on the patient on the date of service of 11/13/2021. Review of Systems Review of Systems: All systems reviewed & are unremarkable except as noted in HPI and below Constitutional: Constitutional: Reports as per HPI and Reports no additional constitutional complaints Eyes: Eyes: Reports as per HPI and Reports no additional eye complaints ENT: Reports system reviewed and no additional complaints, except as documented and Reports Normal hearing present Cardiovascular: Cardiovascular: Reports no additional cardiovascular complain
[2021-11-13] MEDS: LORazepam INJ (*CRX) 2 MG/ML VIAL 0.5 MG IV PUSH (20:55)
[2021-11-13] MEDS: PANTOPRAZOLE SODIUM IV 40 MG VIAL IV PUSH (20:55)
[2021-11-13 22:36] LABS: Hematocrit 39.9 % (42.0-52.0); Hemoglobin 13.7 g/dL (14.0-18.0)
[2021-11-14] VITALS (8 sets, daily range): BP systolic 143–163; BP diastolic 75–96; PULSE 81–97; RESP 16–22; TEMP 35.7–37; O2SAT 95–99
[2021-11-14 05:34] LABS: Hematocrit 40.2 % (42.0-52.0); Hemoglobin 13.7 g/dL (14.0-18.0)
[2021-11-14 05:46] LABS: Alanine Aminotransferase 16 U/L (4-50); Albumin Level 3.4 g/dL (3.5-5.1); Alkaline Phosphatase 58 U/L (38-126); Anion Gap 6 mmol/L (8-16); Aspartate Amino Transferase 23 U/L (17-59); Bilirubin,Total 0.8 mg/dL (0.2-1.3); Blood Urea Nitrogen 11 mg/dL (9-20); CRP 0.8 mg/dL (<1.0); Calcium 8.6 mg/dL (8.4-10.2); Carbon Dioxide 29 mmol/L (22-30); Chloride 99 mmol/L (98-107); Estimated CRCL calculation 103 ml/min; Estimated Glomerular Filt Rate > 60; Glucose 106 mg/dL (65-110); Lipase 31 U/L (23-300); Magnesium 1.6 mg/dL (1.6-2.3); Potassium 3.2 mmol/L (3.4-5.0); Sodium 134 mmol/L (137-145)
[2021-11-14] MEDS: hydrALAZINE HCL 20 MG/ML VIAL 10 MG IV PUSH (06:48)
[2021-11-14 06:55] LABS: Thyroid Stimulating Hormone Reflex 0.153 uIU/mL (0.465-4.68)
[2021-11-14] MEDS: LACTATED RINGERS 1,000 ML 125 ML IV CONT ×2 (07:10→17:32)
--- NOTE | 2021-11-14 07:35 | WPDUROPN2 ---
Progress Note: A&P Assessment and Plan (1) Prostate cancer: Code(s): C61 - Malignant neoplasm of prostate Status: Acute Assessment and Plan: Doing well from urology standpoint. Will see what CALEB output is today. Most likely will remove drain prior to his discharge. (2) Ileus: Code(s): K56.7 - Ileus, unspecified Status: Acute Assessment and Plan: Appears to be improving clinically. Passing flatus and having bowel movement. Patient scheduled for EGD today. Recommendations regarding NG tube and diet per GI (3) Coffee ground emesis: Code(s): K92.0 - Hematemesis Status: Acute Assessment and Plan: To have EGD today. Hemodynamically stable (4) Hypokalemia: Code(s): E87.6 - Hypokalemia Status: Acute Assessment and Plan: Replace as needed. Await labs from today Subjective Subjective Date/Time Seen: 11/14/21 07:35 Post Op day: 3 Principal diagnosis: Adenocarcinoma prostate Interval history: Date is feeling much better today. He is passing gas and had 2 small bowel movements. Appreciate GI and hospitalist input. Mingo to have a EGD today. Review of Systems Review of Systems: All systems reviewed & are unremarkable except as noted in HPI and below Exam Const: General: cooperative and comfortable Resp: Effort & Inspection: normal respiratory effort Cardio: Rate: regular rate Rhythm: regular rhythm GI: GI Palp: Yes Soft to palpation, No Tenderness to palpation present (GI) and No Guarding due to palpation present (GI) Urinary Catheter: Urinary Catheter: patent and draining and urine clear Skin: General skin exam: normal color Neuro: General: patient oriented x3 Speech: normal speech Objective Data Vital Signs Vital Signs: Vital Signs - 24 hr 11/13/21 07:45 11/13/21 14:17 11/13/21 20:00 Temperature 37.2 C 37.2 C 37.5 C Pulse Rate 85 84 80 Respiratory Rate 18 18 18 Blood Pressure 150/83 H 169/83 H 165/87 H Pulse Oximetry 95 98 95 11/13/21 22:00 11/14/21 04:00 11/14/21 06:00 Temperature 36.3 C L Pulse Rate 86 Respiratory Rate 18 20 20 Blood Pressure 163/89 H Pulse Oximetry 95 Intake/Output Intake/Output: Intake & Output 02/05/2511/12/21 11/13/21 11/14/21 23:59 23:59 23:59 23:59 Intake Total 3420 2760 3000 1000 Output Total 700 1340 2265 1980 Balance 2720 1420 735 -625 Meds/Results Medications: Active Medications Generic Name Dose Route Start Last Admin Trade Name Freq PRN Reason Stop Dose Admin Acetaminophen 1,000 mg 11/12/21 16:16 11/12/21 16:37 Acetaminophen 500 Mg Tablet PO 1,000 mg Q6H PRN Administration Mild Pain (1-3) or Fever Docusate Sodium 100 mg 11/11/21 17:00 11/13/21 16:32 Docusate Sodium 100 Mg Capsule PO Not Given BID ARMIDA Hydralazine HCl 10 mg 11/13/21 21:54 Hydralazine Hcl 20 Mg/Ml Vial IV PUSH Q8H PRN Blood Pressure - High Hyoscyamine 0.125 mg 11/11/21 12:52 Hyoscyamine Sulfate 0.125 Mg Tablet SUBLINGUAL Q4H PRN Bladder Spasm Lactated Ringer's 1,000 mls @ 125 mls/hr 11/11/21 12:52 11/14/21 07:10 Lr - Lactated Ringers Iv IV CONT 125 mls/hr .Q8H ARMIDA Administration Levofloxacin 500 mg 11/12/21 09:00 11/13/21 15:29 Levofloxacin 500 Mg Tablet PO Not Given DAILY ARMIDA Lorazepam 0.5 mg 11/13/21 19:59 11/13/21 20:55 Lorazepam Inj (*Crx) 2 Mg/Ml Vial IV PUSH 0.5 mg Q6H PRN Administration Anxiety Morphine Sulfate 1 mg 11/11/21 12:52 11/11/21 13:14 Morphine Sulfate (*Crx) 2 Mg/Ml Inj IV PUSH 1 mg Q2H PRN Administration Pain Rated 7-10 Naloxone HCl 0.1 mg 11/11/21 12:52 Naloxone Hcl 0.4 Mg/Ml Vial IV PUSH Q2M PRN Opiate Reversal Ondansetron HCl 4 mg 11/11/21 12:52 11/13/21 07:16 Ondansetron Inj 4 Mg/2 Ml Vial IV PUSH 4 mg Q6H PRN Administration Nausea And Vomiting Pantoprazole Sodium 40 mg 11/13/21 21:00 11/13/21 20:55 Pantoprazol
[2021-11-14 08:02] LABS: Free T4 Free Thyroxine Reflex 1.26 ng/dL (0.78-2.19)
[2021-11-14] MEDS: PANTOPRAZOLE SODIUM IV 40 MG VIAL IV PUSH ×2 (08:15→20:17)
[2021-11-14] MEDS: POTASSIUM CHLORIDE INJ 40 MEQ in SODIUM CHLORIDE 0.9% IV 500 ML 130 MEQ IVPB (10:10)
[2021-11-14 10:17] LABS: Hematocrit 44.1 % (42.0-52.0); Hemoglobin 15.1 g/dL (14.0-18.0)
--- NOTE | 2021-11-14 10:48 | WPDANESEPPF ---
Anes - Initial Pre Proc Eval Procedure: Operation Date: 11/14/21 15:30 Proposed Procedures p Esophagogastroduodenoscopy - Lb Ascencio MD Date/Time: 11/14/21 10:48 Surgeon: Kurtis Plaza MD Pre Op Diagnosis: prostate cancer Patient Data Age: 66 Gender: M Height: 1.83 m Weight: 110.6 kg Last Vital Signs Temp 36.3 C L 11/14/21 04:00 Pulse 86 11/14/21 04:00 Resp 20 11/14/21 06:00 BP 163/89 H 11/14/21 04:00 Pulse Ox 95 11/14/21 04:00 Allergies Allergy/AdvReac Type Severity Reaction Status Date / Time No Known Allergies Allergy Verified 11/14/21 11:00 Home Medications Medication Instructions Recorded Confirmed Type atorvastatin 10 mg PO HS 10/31/21 11/11/21 History calcipotriene [Dovonex] 1 applic TOPICAL PRN PRN 10/31/21 10/31/21 History hydrochlorothiazide 25 mg PO DAILY 10/31/21 11/11/21 History mometasone 1 applic TOPICAL PRN PRN 10/31/21 10/31/21 History docusate sodium 100 mg PO BID #10 cap 11/12/21 Rx hydrocodone-acetaminophen 1 tablet PO Q6H PRN #20 tablet 11/12/21 Rx losartan 100 mg PO DAILY 11/12/21 11/12/21 History ondansetron 4 mg PO Q8H #20 tablet 11/12/21 Rx sulfamethoxazole-trimethoprim 1 tablet PO Q12H #10 tablet 11/12/21 Rx [Bactrim DS] Laboratory Tests 11/13/21 11/13/21 11/13/21 10:51 10:51 22:18 WBC 12.4 K/mm3 H K/mm3 (4.5-10.0) RBC 4.25 M/mm3 L M/mm3 (4.6-6.20) Hgb 14.1 g/dL g/dL 13.7 g/dL L g/dL (14.0-18.0) (14.0-18.0) Hct 40.7 % L % 39.9 % L % (42.0-52.0) (42.0-52.0) MCV 95.8 fl fl (80-100) MCH 33.2 pg pg (26-34) MCHC 34.6 g/dl g/dl (32-36) RDW 12.7 % % (11.5-14.5) Plt Count 180 k/mm3 k/mm3 (150-375) MPV 10.5 fl H fl (7.4-10.4) Immature Gran % (Auto) 0.5 % % (0-0.5) Neut % (Auto) 82.9 % H % (45.5-73.1) Lymph % (Auto) 8.5 % L % (18.3-44.2) Crook % (Auto) 7.8 % % (2.6-8.5) Eos % (Auto) 0.1 % % (0-4.4) Baso % (Auto) 0.2 % % (0.2-1.2) Lymph # (Auto) 1.05 K/mm3 K/mm3 (0.9-3.2) Crook # (Auto) 1.0 K/mm3 H K/mm3 (0.1-0.6) Eos # (Auto) 0.0 K/mm3 K/mm3 (0-0.3) Baso # (Auto) 0.0 K/mm3 K/mm3 (0.0-0.1) Abs Immat Gran (auto) 0.06 K/mm3 H K/mm3 (0.00-0.031) Absolute Neuts (auto) 10.3 K/mm3 H K/mm3 (1.3-6.7) Absolute Nucleated RBC 0.0 K/mm3 K/mm3 (0.0-0.012) Nucleated RBC % 0.0 % % (0.0-0.2) Sodium 131 mmol/L L mmol/L (137-145) Potassium 3.1 mmol/L L mmol/L (3.4-5.0) Chloride 97 mmol/L L mmol/L (98-107) Carbon Dioxide 30 mmol/L mmol/L (22-30) Anion Gap 4 mmol/L L mmol/L (8-16) BUN 9 mg/dL mg/dL (9-20) Creatinine 0.80 mg/dL mg/dL (0.7-1.3) Estim Creat Clear Calc 103 ml/min ml/min Estimated GFR > 60 (59 - ) Glucose 116 mg/dL H mg/dL (65-110) Lactic Acid Calcium 8.7 mg/dL mg/dL (8.4-10.2) Magnesium Total Bilirubin 0.8 mg/dL mg/dL (0.2-1.3) AST 27 U/L U/L (17-59) ALT 19 U/L U/L (4-50) Alkaline Phosphatase 60 U/L U/L (38-126) C-Reactive Protein Total Protein 6.0 g/dL L g/dL (6.3-8.2) Albumin 4.0 g/dL g/dL (3.5-5.1) Lipase TSH (Reflex) Free T4 Total T3 11/14/21 11/14/21 11/14/21 05:15 05:15 05:15 WBC RBC Hgb 13.7 g/dL L g/dL (14.0-18.0) Hct 40.2 % L % (42.0-52.0) MCV MCH MCHC RDW Plt Count MPV Immature Gran % (Auto) Neut % (Auto) Lymph % (Auto) Crook % (Auto) Eos % (Auto) Baso % (Auto) L
--- NOTE | 2021-11-14 10:55 | PC.NURSE ---
pt transfered to room 344 without issue. pt family updated.
[2021-11-14] MEDS: LACTATED RINGERS 1,000 ML 150 ML IV CONT (11:05)
[2021-11-14 11:49] LABS: Total Triiodothyronine (T3) 0.89 NG/ML (0.97-1.69)
--- NOTE | 2021-11-14 14:31 | PM.IMPN ---
Progress Note: A&P Assessment and Plan (1) Coffee ground emesis: Code(s): K92.0 - Hematemesis Status: Acute Assessment and Plan: NG tube removed GI has been consulted, recommendations appreciated S/p EGD--esophagitis; [facility] PPI, repeat EGD in 1 year Low fiber diet (2) Ileus: Code(s): K56.7 - Ileus, unspecified Status: Acute Assessment and Plan: NG removed Passing gas Low fiber diet (3) Prostate cancer: Code(s): C61 - Malignant neoplasm of prostate Status: Acute Assessment and Plan: Status post prostatectomy CALEB drain to suction Postop care per Urolog y (4) Hyperlipidemia: Code(s): E78.5 - Hyperlipidemia, unspecified Status: Acute Assessment and Plan: Lifestyle modifications (5) Essential (primary) hypertension: Code(s): I10 - Essential (primary) hypertension Status: Acute Assessment and Plan: Resume home losartan and hydrochlorothiazide p.r.n. hydralazine Monitor (6) Hypokalemia: Code(s): E87.6 - Hypokalemia Status: Acute Assessment and Plan: K+ 3.2 today Replaced with 40 meq KCL IVPB Monitor Subjective Date/time seen: 11/14/21 14:31 Interval history: Pt seen and evaluated; labs, vs, diagnostic results reviewed; EGD today Review of Systems Review of Systems: All systems reviewed & are unremarkable except as noted in HPI and below Exam Const: General: no acute distress, alert and awake Orientation/consciousness: patient oriented x3 HENMT: Head: normocephalic and atraumatic Ears: hearing grossly normal bilaterally and external ears normal Face and sinus: face symmetric Mouth: Yes Normal oral and palatal mucosa present Eyes: EOM: EOMs intact bilaterally Neck: Neck: full ROM, trachea midline and no JVD Chest: Chest palpation & inspection: normal inspection of the chest Resp: Effort & Inspection: normal respiratory effort Auscultation: clear to auscultation bilaterally Cardio: Jugular venous distension: no JVD Rate: regular rate Rhythm: regular rhythm Heart sounds: S1 normal heart sound present and S2 normal heart sound present GI: Auscultation: normal bowel sounds : General: Yes no CVA tenderness Skin: General skin exam: normal color Rashes: no rashes Neuro: General: patient oriented x3 and no focal motor deficits Speech: normal speech Extrem: General: no clubbing, cyanosis or edema Psych: Appearance: grossly normal Affect: normal affect Judgement: Good judgement present (Psych) Objective Data Vital Signs Vital Signs: Vital Signs - 24 hr 11/13/21 20:00 11/13/21 22:00 11/14/21 04:00 Temperature 37.5 C 36.3 C L Pulse Rate 80 86 Respiratory Rate 18 18 20 Blood Pressure 165/87 H 163/89 H Pulse Oximetry 95 95 11/14/21 06:00 11/14/21 11:01 11/14/21 12:06 Temperature 37.0 C Pulse Rate 91 87 Respiratory Rate 20 17 21 H Blood Pressure 149/75 H 144/96 H Pulse Oximetry 95 95 11/14/21 12:16 11/14/21 12:26 11/14/21 14:24 Temperature 35.7 C L Pulse Rate 87 82 97 Respiratory Rate 16 22 H 16 Blood Pressure 146/92 H 144/93 H 145/83 H Pulse Oximetry 97 99 97 Intake/Output Intake/Output: Intake & Output 11/11/21 11/12/21 11/13/21 11/14/21 23:59 23:59 23:59 23:59 Intake Total 3420 2760 3000 1000 Output Total 700 1340 2265 2630 Balance 2720 1420 735 -1630 Meds/Results Medications: Active Medications Generic Name Dose Route Start Last Admin Trade Name Freq PRN Reason Stop Dose Admin Acetaminophen 1,000 mg 11/12/21 16:16 11/12/21 16:37 Acetaminophen 500 Mg Tablet PO 1,000 mg Q6H PRN Administration Mild Pain (1-3) or Fever Docusate Sodium 100 mg 11/11/21 17:00 11/14/21 10:09 Docusate Sodium 100 Mg Capsule PO Not Given BID ARMIDA Hydralazine HCl 10 mg 11/13/21 21:54 Hydralazine Hcl 20 Mg/Ml Vial IV PUSH Q8H PRN Blood Pressure - High Hyoscyamine 0.125 mg 11/11/21
[2021-11-14 16:06] LABS: Hematocrit 40.7 % (42.0-52.0); Hemoglobin 13.9 g/dL (14.0-18.0)
[2021-11-14] MEDS: LORazepam INJ (*CRX) 2 MG/ML VIAL 0.5 MG IV PUSH (20:19)
[2021-11-15] MEDS: LORazepam INJ (*CRX) 2 MG/ML VIAL 0.5 MG IV PUSH (02:51)
[2021-11-15] MEDS: LACTATED RINGERS 1,000 ML 125 ML IV CONT (03:45)
[2021-11-15 05:40] VITALS: BP 153/89; PULSE 77; RESP 18; TEMP 35.9; O2SAT 94
[2021-11-15 05:55] LABS: Hematocrit 38.2 % (42.0-52.0); Hemoglobin 13.3 g/dL (14.0-18.0); Mean Corpuscular HGB Conc 34.8 g/dl (32-36); Mean Corpuscular Hemoglobin 32.9 pg (26-34); Mean Corpuscular Volume 94.6 fl (80-100); Mean Platelet Volume 10.7 fl (7.4-10.4); Platelet Count Result 176 k/mm3 (150-375); Red Blood Count 4.04 M/mm3 (4.6-6.20); Red Cell Distribution Width 12.6 % (11.5-14.5); White Blood Count 9.8 K/mm3 (4.5-10.0)
[2021-11-15 06:09] LABS: Anion Gap 8 mmol/L (8-16); Blood Urea Nitrogen 9 mg/dL (9-20); Calcium 8.5 mg/dL (8.4-10.2); Carbon Dioxide 28 mmol/L (22-30); Chloride 99 mmol/L (98-107); Estimated CRCL calculation 116 ml/min; Estimated Glomerular Filt Rate > 60; Glucose 90 mg/dL (65-110); Potassium 3.4 mmol/L (3.4-5.0); Sodium 135 mmol/L (137-145)
--- NOTE | 2021-11-15 08:13 | WPDANESPN ---
Anes - Prog Note Post-Op Date/Time: 11/15/21 08:13 Cardiovascular status: normal Respiratory status: normal Airway patency: baseline Mental status: baseline Post-Op hydration status: normal Vital Signs: Last Vital Signs Temp 35.9 C L 11/15/21 05:40 Pulse 77 11/15/21 05:40 Resp 18 11/15/21 05:40 BP 153/89 H 11/15/21 05:40 Pulse Ox 94 11/15/21 05:40 Pain Score (VAS): 0 I/O: Intake & Output 11/14/21 11/15/21 11/15/21 23:59 07:59 15:59 Intake Total 600 1125 Output Total 650 2050 Balance -50 -925 Laboratory Tests 11/15/21 05:29 11/15/21 05:29 11/14/21 11/14/21 11/14/21 05:15 09:59 15:34 WBC RBC Hgb 15.1 13.9 L Hct 44.1 40.7 L MCV MCH MCHC RDW Plt Count MPV Sodium Potassium Chloride Carbon Dioxide Anion Gap BUN Creatinine Estim Creat Clear Calc Estimated GFR Glucose Calcium Total T3 0.89 L 11/15/21 11/15/21 05:29 05:29 WBC 9.8 RBC 4.04 L Hgb 13.3 L Hct 38.2 L MCV 94.6 MCH 32.9 MCHC 34.8 RDW 12.6 Plt Count 176 MPV 10.7 H Sodium 135 L Potassium 3.4 Chloride 99 Carbon Dioxide 28 Anion Gap 8 BUN 9 Creatinine 0.70 Estim Creat Clear Calc 116 Estimated GFR > 60 Glucose 90 Calcium 8.5 Total T3 Post-procedural complaints: none Patient Feedback: Patient satisfied with anesthetic care.
[2021-11-15] MEDS: levoFLOXacin 500 MG TABLET PO (09:48)
[2021-11-15] MEDS: LOSARTAN POTASSIUM 100 MG TABLET PO (09:49)
[2021-11-15] MEDS: PANTOPRAZOLE SODIUM IV 40 MG VIAL IV PUSH (09:49)
[2021-11-15] MEDS: DOCUSATE SODIUM 100 MG CAPSULE PO (09:49)
--- NOTE | 2021-11-15 10:57 | WPDGIPROGNO ---
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 EGD yesterday showed erosive esophagitis with gastritis and Ortiz's. He is on ppi now. Review of Systems Review of Systems: All systems reviewed & are unremarkable except as noted in HPI and below Exam Const: General: comfortable and no acute distress HENMT: General nose exam: Normal nares present Eyes: General: appearance normal, both eyes and all related structures Neck: Neck: no JVD Resp: Auscultation: clear to auscultation bilaterally Cardio: Rate: regular rate Rhythm: regular rhythm GI: Inspection: non-distended GI Palp: Yes Soft to palpation and No Guarding due to palpation present (GI) Auscultation: normal bowel sounds Urinary Catheter: Urinary Catheter: patent and draining Skin: General skin exam: normal color Neuro: Speech: normal speech Motor exam (neuro): Normal motor muscle tone present throughout Extrem: General: normal to inspection Psych: Mental Status: mental status grossly normal Objective Data Vital Signs Vital Signs: Vital Signs - 24 hr 11/14/21 11:01 11/14/21 12:06 11/14/21 12:16 Temperature 98.6 F Pulse Rate 91 87 87 Respiratory Rate 17 21 H 16 Blood Pressure 149/75 H 144/96 H 146/92 H Pulse Oximetry 95 95 97 11/14/21 12:26 11/14/21 14:24 11/14/21 21:51 Temperature 96.3 F L 97.5 F L Pulse Rate 82 97 81 Respiratory Rate 22 H 16 20 Blood Pressure 144/93 H 145/83 H 143/84 H Pulse Oximetry 99 97 98 11/15/21 05:40 Temperature 96.7 F L Pulse Rate 77 Respiratory Rate 18 Blood Pressure 153/89 H Pulse Oximetry 94 Intake/Output Intake/Output: Intake & Output 11/12/21 11/13/21 11/14/21 11/15/21 23:59 23:59 23:59 23:59 Intake Total 2760 3000 2600 1365 Output Total 1340 2265 3280 2050 Balance [phone] -[phone] Meds/Results Medications: Active Medications Generic Name Dose Route Start Last Admin Trade Name Freq PRN Reason Stop Dose Admin Acetaminophen 1,000 mg 11/12/21 16:16 11/12/21 16:37 Acetaminophen 500 Mg Tablet PO 1,000 mg Q6H PRN Administration Mild Pain (1-3) or Fever Docusate Sodium 100 mg 11/11/21 17:00 11/15/21 09:49 Docusate Sodium 100 Mg Capsule PO 100 mg BID ARMIDA Administration Hydralazine HCl 10 mg 11/13/21 21:54 Hydralazine Hcl 20 Mg/Ml Vial IV PUSH Q8H PRN Blood Pressure - High Hyoscyamine 0.125 mg 11/11/21 12:52 Hyoscyamine Sulfate 0.125 Mg Tablet SUBLINGUAL Q4H PRN Bladder Spasm Lactated Ringer's 1,000 mls @ 125 mls/hr 11/11/21 12:52 11/15/21 03:45 Lr - Lactated Ringers Iv IV CONT 125 mls/hr .Q8H ARMIDA Administration Levofloxacin 500 mg 11/12/21 09:00 11/15/21 09:48 Levofloxacin 500 Mg Tablet PO 500 mg DAILY ARMIDA Administration Lorazepam 0.5 mg 11/13/21 19:59 11/15/21 02:51 Lorazepam Inj (*Crx) 2 Mg/Ml Vial IV PUSH 0.5 mg Q6H PRN A
--- NOTE | 2021-11-15 11:54 | WPDUROPN2 ---
Progress Note: A&P Assessment and Plan (1) Prostate cancer: Code(s): C61 - Malignant neoplasm of prostate Status: Acute (2) Ortiz's esophagus with esophagitis: Code(s): K22.70 - Ortiz's esophagus without dysplasia; K20.90 - Esophagitis, unspecified without bleeding Status: Acute Additional Plan Discharge home today Scripts already sent to pharmacy F/U already arranged for next week for cordon removal Leg bag teaching by nursing staff before discharge Subjective Subjective Date/Time Seen: 11/15/21 11:54 Principal diagnosis: s/p robotic radical prostatectomy Interval history: Doing well today. Had a BM. Ready to go home. Denies CP or SOB Exam Const: General: no acute distress Eyes: General: appearance normal, both eyes and all related structures Neck: Neck: no JVD Resp: Effort & Inspection: normal respiratory effort GI: GI Palp: Yes Soft to palpation Other: CALEB drain with serosang fluid. Was removed by me : Male General Exam: Yes normal external exam Other: indwelling cordon with clear yellow urine Objective Data Vital Signs Vital Signs: Vital Signs - 24 hr 11/14/21 12:06 11/14/21 12:16 11/14/21 12:26 Temperature Pulse Rate 87 87 82 Respiratory Rate 21 H 16 22 H Blood Pressure 144/96 H 146/92 H 144/93 H Pulse Oximetry 95 97 99 11/14/21 14:24 11/14/21 21:51 11/15/21 05:40 Temperature 35.7 C L 36.4 C L 35.9 C L Pulse Rate 97 81 77 Respiratory Rate 16 20 18 Blood Pressure 145/83 H 143/84 H 153/89 H Pulse Oximetry 97 98 94 Intake/Output Intake/Output: Intake & Output 11/12/21 11/13/21 11/14/21 11/15/21 23:59 23:59 23:59 23:59 Intake Total 2760 3000 2600 1365 Output Total 1340 2265 3280 2050 Balance 1420 464 -963 -241 Meds/Results Medications: Active Medications Generic Name Dose Route Start Last Admin Trade Name Freq PRN Reason Stop Dose Admin Acetaminophen 1,000 mg 11/12/21 16:16 11/12/21 16:37 Acetaminophen 500 Mg Tablet PO 1,000 mg Q6H PRN Administration Mild Pain (1-3) or Fever Docusate Sodium 100 mg 11/11/21 17:00 11/15/21 09:49 Docusate Sodium 100 Mg Capsule PO 100 mg BID ARMIDA Administration Hydralazine HCl 10 mg 11/13/21 21:54 Hydralazine Hcl 20 Mg/Ml Vial IV PUSH Q8H PRN Blood Pressure - High Hyoscyamine 0.125 mg 11/11/21 12:52 Hyoscyamine Sulfate 0.125 Mg Tablet SUBLINGUAL Q4H PRN Bladder Spasm Lactated Ringer's 1,000 mls @ 125 mls/hr 11/11/21 12:52 11/15/21 03:45 Lr - Lactated Ringers Iv IV CONT 125 mls/hr .Q8H ARMIDA Administration Levofloxacin 500 mg 11/12/21 09:00 11/15/21 09:48 Levofloxacin 500 Mg Tablet PO 500 mg DAILY ARMIDA Administration Lorazepam 0.5 mg 11/13/21 19:59 11/15/21 02:51 Lorazepam Inj (*Crx) 2 Mg/Ml Vial IV PUSH 0.5 mg Q6H PRN Administration Anxiety Losartan Potassium 100 mg 11/15/21 09:00 11/15/21 09:49 Losartan Potassium 100 Mg Tablet PO 100 mg DAILY ARMIDA Administration Morphine Sulfate 1 mg 11/11/21 12:52 11/11/21 13:14 Morphine Sulfate (*Crx) 2 Mg/Ml Inj IV PUSH 1 mg Q2H PRN Administration Pain Rated 7-10 Naloxone HCl 0.1 mg 11/11/21 12:52 Naloxone Hcl 0.4 Mg/Ml Vial IV PUSH Q2M PRN Opiate Reversal Ondansetron HCl 4 mg 11/11/21 12:52 11/13/21 07:16 Ondansetron Inj 4 Mg/2 Ml Vial IV PUSH 4 mg Q6H PRN Administration Nausea And Vomiting Pantoprazole Sodium 40 mg 11/13/21 21:00 11/15/21 09:49 Pantoprazole Sodium Iv 40 Mg Vial IV PUSH 40 mg Q12HR ARMIDA Administration Radiology Results: ITS Impressions Abdomen X-Ray 11/12/21 20:15 IMPRESSION: 1. Nasogastric tube tip in the stomach. 2. Gaseous distention of the proximal colon, likely adynamic ileus. Labs Labs: Laboratory Results - last 24 hr 11/14/21 11/15/21 11/15/21 15:34 05:29 05:29 WBC 9.8 RBC 4.04 L Hgb 13.9 L 13.3 L Hct 40.7 L 38.2 L MCV 94.6 MCH 32.9
--- NOTE | 2021-11-15 12:42 | PM.IMPN ---
Progress Note: A&P Assessment and Plan (1) Coffee ground emesis: Code(s): K92.0 - Hematemesis Status: Acute Assessment and Plan: NG tube removed GI has been consulted, recommendations appreciated S/p EGD--esophagitis; Ortiz's care home PPI, repeat EGD in 1 year Low fiber diet (2) Ileus: Code(s): K56.7 - Ileus, unspecified Status: Acute Assessment and Plan: NG removed Passing gas Low fiber diet (3) Prostate cancer: Code(s): C61 - Malignant neoplasm of prostate Status: Acute Assessment and Plan: Status post prostatectomy CALEB drain to suction Postop care per Urolog y (4) Hyperlipidemia: Code(s): E78.5 - Hyperlipidemia, unspecified Status: Acute Assessment and Plan: Lifestyle modifications (5) Essential (primary) hypertension: Code(s): I10 - Essential (primary) hypertension Status: Acute Assessment and Plan: Resume home losartan and hydrochlorothiazide p.r.n. hydralazine Monitor (6) Hypokalemia: Code(s): E87.6 - Hypokalemia Status: Acute Assessment and Plan: replaced repeat cmp les one week Subjective Date/time seen: 11/15/21 12:42 Interval history: Patient seen and examined Patient feels better today Tolerating diet No evidence of GI bleed Plan for discharge today Patient denies fever headache chest pain shortness of breath I am seeing the patient for GI bleed Exam Narrative: Alert Chest no wheeze crackles Abdomen nontender nondistended CVS S1 + S2 Negative Lower extremity edema Objective Data Vital Signs Vital Signs: Vital Signs - 24 hr 11/14/21 14:24 11/14/21 21:51 11/15/21 05:40 Temperature 96.3 F L 97.5 F L 96.7 F L Pulse Rate 97 81 77 Respiratory Rate 16 20 18 Blood Pressure 145/83 H 143/84 H 153/89 H Pulse Oximetry 97 98 94 Intake/Output Intake/Output: Intake & Output 11/12/21 11/13/21 11/14/21 11/15/21 23:59 23:59 23:59 23:59 Intake Total 2760 3000 2600 1485 Output Total 1340 2265 3280 2050 Balance 1420 143 -295 -124 Meds/Results Medications: Active Medications Generic Name Dose Route Start Last Admin Trade Name Freq PRN Reason Stop Dose Admin Acetaminophen 1,000 mg 11/12/21 16:16 11/12/21 16:37 Acetaminophen 500 Mg Tablet PO 1,000 mg Q6H PRN Administration Mild Pain (1-3) or Fever Docusate Sodium 100 mg 11/11/21 17:00 11/15/21 09:49 Docusate Sodium 100 Mg Capsule PO 100 mg BID ARMIDA Administration Hydralazine HCl 10 mg 11/13/21 21:54 Hydralazine Hcl 20 Mg/Ml Vial IV PUSH Q8H PRN Blood Pressure - High Hyoscyamine 0.125 mg 11/11/21 12:52 Hyoscyamine Sulfate 0.125 Mg Tablet SUBLINGUAL Q4H PRN Bladder Spasm Lactated Ringer's 1,000 mls @ 125 mls/hr 11/11/21 12:52 11/15/21 03:45 Lr - Lactated Ringers Iv IV CONT 125 mls/hr .Q8H ARMIDA Administration Levofloxacin 500 mg 11/12/21 09:00 11/15/21 09:48 Levofloxacin 500 Mg Tablet PO 500 mg DAILY ARMIDA Administration Lorazepam 0.5 mg 11/13/21 19:59 11/15/21 02:51 Lorazepam Inj (*Crx) 2 Mg/Ml Vial IV PUSH 0.5 mg Q6H PRN Administration Anxiety Losartan Potassium 100 mg 11/15/21 09:00 11/15/21 09:49 Losartan Potassium 100 Mg Tablet PO 100 mg DAILY ARMIDA Administration Morphine Sulfate 1 mg 11/11/21 12:52 11/11/21 13:14 Morphine Sulfate (*Crx) 2 Mg/Ml Inj IV PUSH 1 mg Q2H PRN Administration Pain Rated 7-10 Naloxone HCl 0.1 mg 11/11/21 12:52 Naloxone Hcl 0.4 Mg/Ml Vial IV PUSH Q2M PRN Opiate Reversal Ondansetron HCl 4 mg 11/11/21 12:52 11/13/21 07:16 Ondansetron Inj 4 Mg/2 Ml Vial IV PUSH 4 mg Q6H PRN Administration Nausea And Vomiting Pantoprazole Sodium 40 mg 11/13/21 21:00 11/15/21 09:49 Pantoprazole Sodium Iv 40 Mg Vial IV PUSH 40 mg Q12HR ARMIDA Administration Radiology Results: ITS Impressions Abdomen X-Ray 11/12/21 20:15 ANTOINEE
--- NOTE | 2021-12-31 11:43 | PM.DS ---
DS: Admitting Diagnosis Discharge Date 11/15/21 Admitting Diagnosis Adenocarcinoma of prostate DS: Discharge Diagnosis Discharge Diagnosis (1) Ortiz's esophagus with esophagitis: Code(s): K22.70 - Ortiz's esophagus without dysplasia; K20.90 - Esophagitis, unspecified without bleeding Status: Acute (2) Adenocarcinoma of prostate: Code(s): C61 - Malignant neoplasm of prostate Status: Acute DS: Summary Hospital Course Reason for hospitalization: Adenocarcinoma prostate Hospital Course: Mr. Dubose underwent an uneventful robotic assisted nerve-sparing prostatectomy. Postoperative day 1 he developed coffee-ground emesis. This required a automatic screwmaker consult. Endoscopy revealed Ortiz's esophagitis with gastritis. He was placed on appropriate medication and did well postoperatively after that. Patient was discharged home with Cordon catheter. He will follow up in a week's time for cystogram and most likely Cordon catheter removal. He will also follow-up with Dr. Sotelo as instructed. Please review hospital records for details Time Spent with Patient Time attestation: Total time spent providing and/or coordinating discharge services: DS: Data Data Completed and Pending Completed studies during hospitalization: Pending at discharge 11/11/21 10:19 Surgical [PTH] Routine 11/14/21 12:06 Surgical [PTH] Routine Discharge Plan Discharge Attending physician on discharge: Kurtis Plaza Consulting providers: Tc Fischer ; Lb Ascencio ; Diana Sifuentes ; Maninder Schwartz M.A. ; Karina Ratliff ; Jarrod Lobato V. ; Karina Veronica Discharging Clinician: Tc Munroe Anticipated Discharge Date/Time: 11/15/21 11:58 Patient Disposition: Home, Self-Care Activity: may shower Diet: as tolerated Discharge Instructions: Call the office if you develop a fever of >102,incisional concerns,clots in your urine, or a catheter that is not draining. Ok to shower, wash incisions and pat dry. Avoid hot tubs, swimming pools or bath tubs for [address] while on narcotic pain medications. You may not have a bowel movement for 2-3 days. You will follow up on 11/14/2021 for your drain removal at 10:45am with the nurse practitioner, Karina Ratliff-ANP. You should keep track of your drain output. Your cordon will be removed next week after your cystogram, proceed to the office when finished with your radiology appointment. Your Cystogram appointment is scheduled at [facility] on 11/20/2021, at 9am, arrive at 8:30. Stand Alone Forms: General Discharge Instructions Follow-up/Referrals: Kurtis Plaza MD [Physician] - Lb Ascencio MD [Physician] - 6 Weeks Discharge Medications: New docusate sodium 100 mg Capsule 100 mg PO BID Qty: 10 RF: 0 sulfamethoxazole-trimethoprim [Bactrim DS] 800-160 mg tablet 1 tablet PO Q12H Qty: 10 RF: 0 ondansetron 4 mg tablet,disintegrating 4 mg PO Q8H Qty: 20 RF: 0 hydrocodone-acetaminophen 5-325 mg tablet 1 tablet PO Q6H PRN (Reason: pain) Qty: 20 RF: 0 pantoprazole 40 mg tablet,delayed release (DR/EC) 40 mg PO BID 30 Days Qty: 60 RF: 11 Continued calcipotriene [Dovonex] 0.005 % cream 1 applic TOPICAL PRN PRN (Reason: ECZEMA) RF: 0 mometasone 0.1 % cream 1 applic TOPICAL PRN PRN (Reason: ECZEMA) RF: 0 losartan 100 mg Tablet 100 mg PO DAILY RF: 0 No Action hydrochlorothiazide 25 mg tablet 25 mg PO DAILY Qty: 30 RF: 1 atorvastatin 10 mg tablet 10 mg PO HS Qty: 30 RF: 1 Date of admission: 11/13/21 09:15 Primary Care Provider: Josemanuel Banegas Admitting Provider: Kurtis Plaza Attending physician on admission: Tc Munroe Condition: Stable Quality VTE Prophylaxis VTE prophylaxis: mechanical ordered
== END 2021-11-15 13:10 | disposition home or self-care (01) | DRG 707 ==
LOC: ANHSURGERY 09:44 → ANHSUROVER 14:49 → ANH3MED 11-15 11:59 → ANHSUROVER 11-17 17:23
PROVIDERS: Internal Medicine Gastroenterology; Nurse Practitioner; Nurse Practitioner Adult Health; Admitting Provider Urology; PCP Internal Medicine; Visit Provider Urology
PROC: 0VT04ZZ Resection of Prostate, Percutaneous Endoscopic Approach (ICD-10-PCS; CPT 55867; principal; 2021-11-11 07:30)
PROC: 0DJ08ZZ Inspection of Upper Intestinal Tract, Via Natural or Artificial Opening Endoscopic (ICD-10-PCS; CPT 43235; principal; 2021-11-14 12:30)
DX: C61 Malignant neoplasm of prostate (principal); K21.01 Gastro-esophageal reflux disease with esophagitis, with bleeding; K56.7 Ileus, unspecified; K22.70 Barrett's esophagus without dysplasia; K29.70 Gastritis, unspecified, without bleeding; K44.9 Diaphragmatic hernia without obstruction or gangrene; E78.5 Hyperlipidemia, unspecified; I10 Essential (primary) hypertension; E87.6 Hypokalemia; R05.9 Cough, unspecified; U09.9 Post COVID-19 condition, unspecified; Z87.891 Personal history of nicotine dependence; Z98.49 Cataract extraction status, unspecified eye; Z96.1 Presence of intraocular lens; Z86.010 Personal history of colon polyps; Z79.899 Other long term (current) drug therapy
CPT/HCPCS: 36415; 74018; 80048; 80053; 83605; 83690; 83735; 84439; 84443; 84480; 85014; 85018; 85025; 85027; 86140; 88305; 88309; A9270; C9113; J0360; J0690; J1100; J1885; J2001; J2060; J2270; J2405; J2704; J2710; J3010; J3480; J7030; J7040; J7120

== ENCOUNTER 2021-11-20 08:33 | Outpatient (CLI) | payer OTHER, SELFPAY ==
--- NOTE | ~2021-11-20 | XR_ITS ---
EXAMINATION: XR cystogram DATE: 11/20/2021 09:14 INDICATION: Prostate cancer TECHNIQUE: Water-soluble contrast was gravity-infused through the patient's Lewis catheter. Multiple fluoroscopic images were obtained. Fluoroscopy exposure time was 1.5 minutes. The DAP for this proced ure was 25.41 Gycm2. COMPARISON: None. FINDINGS: The Lewis catheter is within the bladder. The bladder contour is normal. No contrast extrav asation is identified. There are phleboliths of the pelvis. IMPRESSION: 1. No bladder leak identified. Reviewed, dictated and finalized at location A. 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
== END 2021-11-20 08:34 | disposition home or self-care (01) ==
LOC: ANHIMG 08:36
PROVIDERS: PCP Internal Medicine; Visit Provider Urology
DX: C61 Malignant neoplasm of prostate (principal)
CPT/HCPCS: 51600; 74430; Q9967

== ENCOUNTER → 2022-06-17 13:45 | Outpatient (CLI) | payer OTHER, SELFPAY ==
--- NOTE | ~2022-06-17 | DEXA_ITS ---
Bone Density Report Name: KORY MAGUIRE Age: 66 Sex: Male Ethnicity: White Date of : 1955 Indication: cancer; Referring Provider: BK RAE Study: Bone densitometry was performed. Exam Date: June 17, 2022 Accession number: [id number] Bone Density: Region BMD T-score Z-score Classification AP Spine (L1-L4) 1.207 1.1 1.8 Normal Femoral Neck (Left) 0.838 -0.7 0.4 Normal Total Hip (Left) 0.977 -0.4 0.2 Normal Femoral Neck (Right) 0.843 -0.6 0.4 Normal Total Hip (Right) 0.981 -0.3 0.2 Normal Total Hip Mean 0.979 -0.4 0.2 Normal World Health Organization criteria for BMD impression classify patients as: Normal (T-score at or above -1.0), Osteopenia (T-score between -1.0 and -2.5), or Osteoporosis (T-score at or below -2.5). 10-year Fracture Risk: FRAX not reported because: All T-scores for Spine Total, Hip Total, Femoral Neck at or above -1.0 Clinical Information Provided by Patient: Has used the following medications: Vitamin D, Calcium, HORMONE JOSE ROBERTO Has the following medical conditions: Cancer Patient maximum height was 72 No regular weight bearing exercise Does not regularly consume dairy products Drinks caffeinated beverages Impression: The patient has normal bone mass. Discussion: BONE DENSITY IS ABOVE THE MINIMUM DESIRABLE LEVEL AT ALL SKELETAL SITES TESTED. This patient?s bone mineral density is above the minimum desirable level (T-score -1.0 or better) at all sites measured. The patient should follow a healthful lifestyle (good nutrition with adequate calcium and vitamin D, and appropriate weight-bearing exercise). Follow-Up: Consider repeating this study in 5 years or sooner if there is some new clinical indication. Reported by: JEET on 06/17/2022 2:41:00 PM. Reviewed, dictated and finalized at location AMiles PEARSON
== END ==
PROVIDERS: PCP Internal Medicine; Visit Provider Nurse Practitioner Adult Health
DX: C61 Malignant neoplasm of prostate (principal)
CPT/HCPCS: 77080

== ENCOUNTER 2022-12-29 01:32 | Day surgery (SDC) | payer BC, SELFPAY ==
[2022-12-16 14:00] VITALS: BMI 32.8
[2022-12-29 07:45] VITALS: BP 125/75; RESP 18; TEMP 36.1; O2SAT 95; BMI 32.8
[2022-12-29] MEDS: LACTATED RINGERS 1,000 ML 150 ML IV CONT (08:08)
--- NOTE | 2022-12-29 08:51 | WPDANESEPPF ---
Anes - Initial Pre Proc Eval Procedure: Operation Date: 12/29/22 09:00 Proposed Procedures p Esophagogastroduodenoscopy - Lb Ascencio MD Date/Time: 12/29/22 08:51 Surgeon: Lb Ascencio MD Pre Op Diagnosis: Ortiz's Esophagus Patient Data Age: 67 Gender: M Height: 1.83 m Weight: 110 kg Last Vital Signs Temp 97.0 F L 12/29/22 07:45 Resp 18 12/29/22 07:45 BP 125/75 12/29/22 07:45 Pulse Ox 95 12/29/22 07:45 O2 Del Method Room Air 12/29/22 07:45 Allergies Allergy/AdvReac Type Severity Reaction Status Date / Time No Known Allergies Allergy Verified 12/29/22 07:51 Home Medications Medication Instructions Recorded Confirmed Type pantoprazole 40 mg tablet,delayed 40 mg PO BID 1 month #60 tabs 11/14/21 12/29/22 Rx release atorvastatin 10 mg tablet 10 mg PO HS #90 tabs 12/15/22 12/29/22 Rx hydrochlorothiazide 25 mg tablet 25 mg PO DAILY #90 tabs 12/15/22 12/29/22 Rx losartan 100 mg tablet 100 mg PO DAILY #90 tabs 12/15/22 12/29/22 Rx Patient hx anesthesia problems: none Family hx anesthesia problems: none Results Review: All pre-operative results and documents have been reviewed as part of the pre-operative evaluation. [facility] Past Medical History Medical History Ortiz's esophagus with esophagitis Blister of ear canal Coffee ground emesis Encounter for vitamin deficiency screening Enlarged prostate without lower urinary tract symptoms (luts) Erosive esophagitis ETOH abuse 4-5 drinks every other day History of colon polyps Hyperlipidemia Hypertension On fdc drug therapy Special screening for other malignant neoplasms Trigger finger of left hand Surgical History Surgical History H/O colonoscopy with polypectomy Hx of cataract removal with insertion of prosthetic lens September 2020 and October 2020 S/P prostatectomy S/P trigger finger release Family History Family History Mother Leukemia Sibling Patient's brother is in good health only 1 brother is healthy Sepsis 1 brother from sepsis Bile duct cancer 1 brother from bile duct cancer. Father Family history of emphysema Patient's father is Social History Social History Social History: quit smoking 20 years ago, 1-1.5 PPd x 20 years prior The patient lives with his who is the durable power insurance attorney for healthcare. The patient has 1 biological child and 3 step children. 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 The patient used to drink couple drinks a day but has cut that down significantly. Code status full code Smoking packs per day: 1 Smoking cigarettes per day: 20.0 Years smoked: 25 Smoking pack-years: 25.00 Smoking status: Former smoker Tobacco type: cigarettes Smoking end date: 10/04/03 Alcohol intake: current Drinks per week: 10 Substance use: never Substance use type: does not use Living arrangements: with family Spiritual care concerns: No Anes - Eval Final PreProcedure Day of Procedure 12/29/22 08:51 Patient weight: obese Heart: regular rate and rhythm Lungs: clear to auscultation Airway: Mallampati scale class II Neurological: alert and oriented Last oral intake: >/= 8 hours ASA classification: III Emergent: no Anesthetic plan: proceed Anesthesia type and monitoring: general GIVS and standard monitoring Results Review: All pre-operative results and documents have been reviewed as part of the pre-operative evaluation. Informed Consent: The patient's anesthetic plan and its attendant risks and benefits were discussed with the patient/family/POA. Questions were solicited and answers provided to the satisfaction of th
--- NOTE | 2022-12-29 09:09 | PM.HPGS ---
History of Present Illness History of Present Illness Consent: Risks, benefits, and alternatives have been discussed and questions answered. Patient agrees to proceed with procedure. Chief complaint: Ortiz's Esophagus Narrative: Mingo Huerta is a 67 year old male with hematemesis in 2021, egd showed esophagitis and Ortiz's without dysplasia, now using ppi and doing well. Review of Systems Constitutional: Constitutional: Denies headache(s) and Denies weakness Eyes: Eyes: Denies blurry vision ENT: Reports Normal hearing present, Denies headache(s) and Denies neck pain Cardiovascular: Cardiovascular: Denies chest pain and Denies dyspnea Respiratory: Respiratory: Denies dyspnea Gastrointestinal: Gastrointestinal: Reports no additional gastrointestinal complaints Genitourinary: Genitourinary: Denies dysuria Musculoskeletal: Musculoskeletal: Denies neck pain Integumentary/Breasts: Skin/Breast: Denies dry skin Neurologic: Reports Normal hearing present, Denies headache(s) and Denies weakness Psychiatric: Psychiatric: Denies anxiety Endocrine: Endocrine: Denies change in body appearance Hematologic/Lymphatic: Hematologic/Lymphatic: Denies easy bleeding Allergic/Immunologic: Allergic/Immunologic: Denies urticaria PMFSH Past Medical History Medical History Ortiz's esophagus with esophagitis Blister of ear canal Coffee ground emesis Encounter for vitamin deficiency screening Enlarged prostate without lower urinary tract symptoms (luts) Erosive esophagitis ETOH abuse 4-5 drinks every other day History of colon polyps Hyperlipidemia Hypertension On [facility] drug therapy Special screening for other malignant neoplasms Trigger finger of left hand Surgical History Surgical History H/O colonoscopy with polypectomy Hx of cataract removal with insertion of prosthetic lens September 2020 and October 2020 S/P prostatectomy S/P trigger finger release Family History Family History Mother Leukemia Sibling Patient's brother is in good health only 1 brother is healthy Sepsis 1 brother from sepsis Bile duct cancer 1 brother from bile duct cancer. Father Family history of emphysema Patient's father is Social History Social History Social History: quit smoking 20 years ago, 1-1.5 PPd x 20 years prior The patient lives with his who is the durable power attorney law clerk for healthcare. The patient has 1 biological child and 3 step children. 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 The patient used to drink couple drinks a day but has cut that down significantly. Code status full code Smoking packs per day: 1 Smoking cigarettes per day: 20.0 Years smoked: 25 Smoking pack-years: 25.00 Smoking status: Former smoker Tobacco type: cigarettes Smoking end date: 10/04/03 Alcohol intake: current Drinks per week: 10 Substance use: never Substance use type: does not use Living arrangements: with family Spiritual care concerns: No Meds Home Medications and Allergies Home Medications Medication Instructions Recorded Confirmed Type pantoprazole 40 mg tablet,delayed 40 mg PO BID 1 month #60 tabs 11/14/21 12/29/22 Rx release atorvastatin 10 mg tablet 10 mg PO HS #90 tabs 12/15/22 12/29/22 Rx hydrochlorothiazide 25 mg tablet 25 mg PO DAILY #90 tabs 12/15/22 12/29/22 Rx losartan 100 mg tablet 100 mg PO DAILY #90 tabs 12/15/22 12/29/22 Rx Allergies Allergy/AdvReac Type Severity Reaction Status Date / Time No Known Allergies Allergy Verified 12/29/22 07:51 Vital Signs Vital Signs - 24 hr 12/29/22 07:45 Temperature 97.0 F L Respiratory Rate 18 Blood Pressure 125/75
[2022-12-29 09:30] VITALS: BP 104/74; PULSE 76; RESP 23; O2SAT 96
[2022-12-29 09:40] VITALS: BP 111/76; PULSE 71; RESP 17; O2SAT 96
[2022-12-29 09:50] VITALS: BP 122/96; PULSE 67; RESP 18; O2SAT 98
== END 2022-12-29 10:07 | disposition home or self-care (01) ==
PROVIDERS: PCP Internal Medicine; Visit Provider Internal Medicine Gastroenterology
PROC: 0DJ08ZZ Inspection of Upper Intestinal Tract, Via Natural or Artificial Opening Endoscopic (ICD-10-PCS; CPT 43235; principal; 2022-12-29 09:00)
DX: K21.9 Gastro-esophageal reflux disease without esophagitis (principal); K22.70 Barrett's esophagus without dysplasia; I10 Essential (primary) hypertension; E78.5 Hyperlipidemia, unspecified; K44.9 Diaphragmatic hernia without obstruction or gangrene; Z87.891 Personal history of nicotine dependence; E66.9 Obesity, unspecified; Z68.32 Body mass index [BMI] 32.0-32.9, adult
CPT/HCPCS: 43239; 43251; 88305; J2001; J2704; J7120

== ENCOUNTER 2023-11-09 13:24 | Outpatient (CLI) | payer BC, MEDICARE, SELFPAY ==
--- NOTE | ~2023-11-09 | PE_ITS ---
EXAMINATION: PET_PETPSMAST_PT DATE: 11/09/2023 15:50 INDICATION: Prostate cancer TECHNIQUE: 9.709 mCi of pipflufolastat F-18 (18-F-DCFPyL) was administered i.v. Low dose computed to mography (CT) images were acquired from the base of the brain to the base of the brain to the proxima l thighs for attenuation correction and anatomic localization. Positron emission tomography (PET) erica ges were acquired in the same distribution beginning 99 minutes after injection. Images including fus ed PET/CT images were reconstructed in axial, coronal, and sagittal planes. Automated exposure contro l technique was employed. The dose-length product was 888.54mGy-cm. COMPARISON: None FINDINGS: Head/neck: Typical pattern of symmetric physiologic increased activity in the lacrimal, parotid and submandibula r glands as well as along the mucosa of the nasal and oral cavities, the nellie-, naso- and hypopharynx, the glottis and esophagus. There is also a typical pattern of symmetric tiny foci of mild likely phy siologic neural ganglia uptake at a few bilateral cervical neural foramina. No pathologically enlarge d cervical lymphadenopathy or suspicious foci of increased uptake in the visualized head or neck. Chest: Small calcified nodule in the superior segment of the right lower lobe consistent with old granulomat ous disease. Linear discoid atelectasis at the lingula. No suspicious pulmonary nodules, pneumonia, p ulmonary edema or pleural effusion. Heart size normal. Atherosclerotic coronary artery calcification. No pericardial effusion. Thoracic aorta is normal in caliber. No pathologically enlarged or PSMA sanchez d thoracic lymphadenopathy. Abdomen/pelvis/proximal thighs: Physiologic renal accumulation and excretion of activity in the kidneys, bladder and along portions o f ureters. There is funneling of the base of the bladder consistent with prior prostatectomy. There a re bilateral low-attenuation photopenic renal cysts the largest on the right measuring 4.2 cm and 2.7 cm and and 8 mm extremity cyst at the upper pole the left kidney. Normal degree and slightly heterog enous pattern of increased uptake throughout the liver and spleen without radiologic correlate or dom inant PSMA avid lesion. There are couple small high attenuation gallstones within the otherwise maxime l-appearing gallbladder. The pancreas and bilateral adrenal glands are normal. Moderate uptake scatte red throughout the bowels with typical duodenal and proximal jejunal predominance and without radiolo gic correlate, also likely physiologic. There are 3 subcentimeter foci of mild increased uptake in th e anterior right pelvic fat near the entrance to the inguinal canal with maximal SUV values of 8.6, 7 .6 and 3.6. Is suspicious for metastases to local lymph nodes which are too small to be identified by CT. No other abnormal foci of increased uptake or pathologically enlarged lymphadenopathy in the abd omen, pelvis or proximal thighs. Musculoskeletal: There are a couple small foci of mild increased uptake at the head of the right clavicle and at the l ateral right third rib both without evident correlate on CT nonetheless suspicious for early osseous metastatic disease. There are few scattered small very densely sclerotic likely bone islands which ar e without evident PSMA activity from the most prominent at the left glenoid, right humeral head and l eft femoral head. No other suspicious PSMA avid or suspicious lytic or sclerotic bone lesions identif ied. IMPRESSION: 1. A few tiny foci of increased uptake in the right anterior pelvic fat near the entrance inguinal ca nal without radiologic correlate suspicious for possible early metastatic lymphadenopathy. 2. Small foci of increased PSMA uptake also without radiologic correlate on CT at the head of the rig ht clavicle and at the lateral right third rib both suspicious for early osseous metastatic disease. 3. Cholelithiasis. ____
== END 2023-11-09 13:25 | disposition home or self-care (01) ==
LOC: ANHIMG 13:26
PROVIDERS: PCP Nurse Practitioner; Visit Provider Urology
DX: C61 Malignant neoplasm of prostate (principal); K80.20 Calculus of gallbladder without cholecystitis without obstruction
CPT/HCPCS: 78815; A9595

== ENCOUNTER 2023-11-23 07:41 | Outpatient (CLI) | payer BC, MEDICARE, SELFPAY ==
--- NOTE | ~2023-11-23 | US_ITS ---
EXAMINATION: US carotid duplex BI DATE: 11/23/2023 08:40 INDICATION: Carotid artery occlusion and stenosis TECHNIQUE: Grayscale, color Doppler, and pulsed Doppler images of the cervical carotid arteries were obtained. The degree of vessel stenosis is placed in one of the following categories: normal, <50%, 5 0-69%, >=70% but less than near-occlusion, near-occlusion, or total occlusion. Note that percent sten osis relative to normal distal artery lumen diameter is indirectly measured from velocity measurement s as described by Wilfredo, et al. Radiology 2003; 229:340-346. COMPARISON: None. FINDINGS: RIGHT: The right common carotid artery (CCA) peak systolic velocity (PSV) is 84 cm/s. The right internal car otid artery (ICA) PSV is 62 cm/s. The right ICA end-diastolic velocity (EDV) is 21 cm/s. The right IC A/CCA PSV ratio is 0.7. Grayscale and color Doppler images yield an estimate of <50% diameter reducti on from plaque in the ICA. The external carotid artery (ECA) PSV is 64 cm/s. There is antegrade flow in the right vertebral artery. LEFT: The left CCA PSV is 75 cm/s. The left ICA PSV is 56 cm/s. The left ICA EDV is 25 cm/s. The left ICA/C CA PSV ratio is 0.7. Grayscale and color Doppler images yield an estimate of <50% diameter reduction from plaque in the ICA. The ECA PSV is 64 cm/s. There is antegrade flow in the left vertebral artery. IMPRESSION: 1. <50% stenosis in the right internal carotid artery. 2. <50% stenosis in the left internal carotid artery. Reviewed, dictated and finalized at location A. PRODUCTION HEATER
== END 2023-11-23 07:42 | disposition home or self-care (01) ==
LOC: ANHIMG 07:42
PROVIDERS: PCP Nurse Practitioner; Visit Provider Nurse Practitioner
DX: I65.23 Occlusion and stenosis of bilateral carotid arteries (principal)
CPT/HCPCS: 93880

== ENCOUNTER 2025-04-24 07:27 | Outpatient (CLI) | payer OTHER, MEDICARE, SELFPAY ==
--- NOTE | ~2025-04-24 | PE_ITS ---
EXAMINATION: PET_PETPSMAST_PT DATE: 04/24/2025 09:53 INDICATION: Prostate cancer TECHNIQUE: 5.66 mCi of Illucix Ga-68([id number]) was administered i.v. Low dose computed tomog vin (CT) images were acquired from the base of the brain to the base of the brain to the proximal t highs for attenuation correction and anatomic localization. Positron emission tomography (PET) images were acquired in the same distribution beginning 96 minutes after injection. Images including fused PET/CT images were reconstructed in axial, coronal, and sagittal planes. Automated exposure control t echnique was employed. The dose-length product was 1395.94mGy-cm. COMPARISON: 11/09/2023 FINDINGS: Head/neck: Typical pattern of symmetric physiologic increased activity in the lacrimal, parotid and submandibula r glands as well as along the mucosa of the nasal and oral cavities, pharynx and hypopharynx. No path ologically enlarged cervical lymphadenopathy or suspicious foci of increased uptake in the visualized head or neck. Chest: Unchanged linear discoid atelectasis/scarring at the lingula. Unchanged calcified right lower lobe no dule consistent with old granulomatous disease. No other suspicious pulmonary nodules or pleural effu jose. Heart size normal. Atherosclerotic coronary artery calcific location. No pericardial effusion. Thoracic aorta is normal in caliber. No pathologically enlarged or PSMA avid thoracic lymphadenopathy . Abdomen/pelvis/proximal thighs: Physiologic renal accumulation and excretion of activity in the kidneys, bladder and along portions o f ureters. Photopenic defects associated with bilateral low-attenuation renal cysts the largest on th e right measuring 4.3 cm. Postoperative change of prior prostatectomy. Normal degree and slightly het erogenous pattern of increased uptake throughout the liver and spleen without radiologic correlate or dominant PSMA avid lesion. There are couple high attenuation gallstones at the neck of the otherwise normal gallbladder. The pancreas and bilateral adrenal glands are normal. Moderate uptake scattered throughout the bowels with typical duodenal and proximal jejunal predominance and without radiologic correlate, also likely physiologic. There is new focal haziness to the omental fat in the right lower quadrant with mild associated increased activity with maximal SUV of 6.1. There has been interval de velopment of FDG avid nodular soft tissue densities suspicious for peritoneal implants at the sites o f the previous noted small foci of increased uptake in the deep pelvis most prominent near the entran ce to the right inguinal canal with larger deposits measures 2.5 x 1.8 cm with maximal SUV of 7.1. Sm all fat-containing right inguinal hernia. No other abnormal foci of increased uptake or pathologicall y enlarged lymphadenopathy in the abdomen, pelvis or proximal thighs. Musculoskeletal: Again seen is a small focus of more subtle increased uptake at the lateral right third rib. See with maximal SUV of 2.5, currently 2.3 nonetheless remaining suspicious for metastatic disease. No abnorma l uptake identified at the head of the right clavicle which appears to demonstrate a tiny focus of in creased uptake. Unchanged densely sclerotic likely bone island at the right humeral head without evid ent PSMA activity. No other suspicious lytic, blastic or new abnormally PSMA avid bone lesions. IMPRESSION: 1. Increased PSMA may uptake associated with enlarging peritoneal nodules in the deep pelvis the larg est near the entrance to the right inguinal canal measuring 2.5 x 1.8 cm concerning metastatic perito carina carcinomatosis. Additional new suspected peritoneal metastatic disease involving the greater ome ntum in the right lower quadrant where there is new groundglass opacity with mild uptake. 2. Persistent small focus of minimal increased uptake involving the lateral right third rib which rem ains suspicious for metastatic disease. 3. Cholelithiasis. Reviewed, dictated and finalized at location A. IMPRESSION: 1. Increased PSMA may uptake associated with enlarging peritoneal nodules in th e deep pelvis the largest near the entrance to the right inguinal canal measuri ng 2.5 x 1.8 cm concerning metastatic peritoneal carcinomatosis. Additional new suspected peritoneal metastatic disease involving the greater omentum in the r ight lower quadrant where there is new groundglass opacity with mild uptake. 2. Persistent small focus of minimal increased uptake involving the lateral rig ht third rib which remains suspicious for metastatic disease. 3. Cholelithiasis.
--- OUTSIDE RECORDS SUMMARY | 2025-04-24 07:30 | XMS_ITS | Clinical Summary ---
Author Organization [facility] Address [address] [place] [address] Care Team Providers Care Air Liaison And Special Staff Name Role Phone Unavailable Primary Care Provider Unavailabl e Social History Tobacco Use Types Packs/Day Years Used Date Smoking Tobacco: Never Assessed Sex and Gender Information Value Date Recorded Sex Assigned at Not on file Legal Sex Male 9:26 PM CDT Gender Identity Not on file Sexual Orientation Not on file Plan of Treatment Health Maintenance Due Date Last Done Comments Colorectal Cancer Screening Colonoscopy (10 Years) 1955 Hepatitis C 1974 DTaP, Tdap and Td Vaccines ( 1 - Tdap) 1975 Pneumococcal Vaccine: 50+ Ye ars (1 of 1 - PCV) 2006 Zoster Vaccines (1 of 2) 2006 COVID-19 Vaccine ( - 2023-2 5 season) 2024 RSV Immunization or 60+ Years (1 - 1-dose 75+ series) 2031 Meningococcal B Vaccine Aged Out No l onger eligible based on patient's age to complete this topic Meningococcal Vaccine Aged Out No barbara julio c eligible based on patient's age to complete this topic RSV Immunizations Under 20 Months Aged Out No longer eligible based on patient's age to complete this topic
--- OUTSIDE RECORDS SUMMARY | 2025-04-24 07:31 | XMS_ITS | Referral Summary ---
Author Organization [facility] Address [address] [place] [id number] Care Team Providers Care Senior Test Analyst Name Role Phone Kory Handley MD Primary Care Provider [phone] Kurtis Plaza MD Unavailable [phone] Sid Rayo MD Unavailable [phone] Encounters Date Type Department Care Team Description 04/16/[address] [address] Opal Sky, MELINDA Appointment Request 04/16/[address] [address] Opal Sky, MELINDA Appointment Request 03/08/2025 Results Follow-Up [facility] [address] [place] [address] Reema Nelson, clean room assembler pathology 03/07/2025 9:04 AM CDT Anesthesia Event [facility] [place] [address] [place] [address] Carlos Sheriff MD Hubbard, Gary Lee, CRNA 03/07/2025 9:00 AM CDT - 03/07/2025 9:30 AM CDT Surgery [facility] [place] [address] [place] [address] Josh Oconnell MD ESOPHAGOGASTRODUODENOSCOPY BIOPSY 03/07/2025 8:13 AM CDT - 03/07/2025 10:00 AM CDT Hospital Encounter [facility] [facility] [address] [place] [address] Josh Oconnell MD Ortiz's esophagus with high grade dysplasia Discharge Disposition: Discharge to home or self care 01/25/2025 Telephone [facility] [address] [place] [address] Reema Nelson RN GI preprocedure 03.07.2025 from Last 3 Months Allergies No known active allergies Medications atorvastatin (LIPITOR) 10 mg tablet Take 1 tablet (10 mg total) by mouth nightly at bedtime. 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 4 or more times a week 03/07/2025 Q2: How many drinks containi ng alcohol do you have on a typical day when you are drinking? 3 or 4 Frequency of Binge Drinking Not on file 01/2025 Personal Safety Answer Date Recorded Have you ever been in or are you currently in a harmful physical or emotional relationship or is someone making you feel afraid or unsafe? 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 Gender Identity Not on file Sexual Orientation Not on file Last Filed Vital Signs Vital Sign Reading Time Taken Comments Blood Pressure 106/76 03/07/2025 9:45 AM CDT Pulse 61 03/07/2025 9:45 AM CDT Temperature 36.6 C (97.9 F) 03/07/2025 9:25 AM CDT Respiratory Rate 16 03/07/2025 9:45 AM CDT Oxygen Saturation 95% 03/07/2025 9:45 AM CDT Inhaled Oxygen Concentration - - Weight 108.9 kg (240 lb) 03/07/2025 8:28 AM CDT Height 182.9 cm (6') 03/07/2025 8:28 AM CDT Body Mass Index 32.55 03/07/2025 8:28 AM CDT Plan of Treatment Not on file Procedures Procedure Name Priority Date/Time Associated Diagnosis Comments SURGICAL PATHOLOGY Routine 03/07/2025 9:11 AM CDT Ortiz's esophagus with high grade dysplasia ESOPHAGOGASTRODUODENOSCOPY BIOPSY 03/07/2025 9:04 AM CDT Ortiz's esophagus with high grade dysplasia EGD 03/07/2025 8:49 AM CDT from Last 3 Months Results * Surgical pathology (03/07/2025 9:11 AM CDT) Tissue (EG Junction, Biopsy) 03/07/2025 9:11 AM CDT Tissue specimen (specimen) (Esophageal biopsy) 03/07/2025 9:13 AM CDT Narrative PATHOLOGY BJ - 03/08/2025 3:58 PM CDT EPIC results best viewed via link to PDF [facility] [place] [address] [place] [address] Note to Patients: This report may contain a detailed description of human tissue sent by a health care provider to the laboratory for pathologic evaluation. The content of this report is essential for diagnosis and may provide important critical findings. This information may be unfamiliar to patients to review without a medical professional present. It is advised that the patient review this report in the presence of a health care provider who can answer questions and explain the details. SURGICAL PATHOLOGY REPORT FINAL Patient Name: KORY HUERTA Gender: M : 1955 (Age: 69) Address: [address] [place] [address] Hospital #: [id number] Taken:03/07/2025 Received:03/07/2025 Reported: 03/08/2025 Patient Type: [facility] Service: Gastro Location: Physician(s): Berry Amado MD Edmundo A. Rodriguez Frias, M.D. Diagnosis: A. GE junction, biopsy - Squamocolumnar mucosa with reactive epithelial changes - Cardio-oxyntic mucosa with PPI effect - No intestinal metaplasia identified B. Esophagus, 40-42, biopsy - Squamous mucosa with no histopathologic abnormality - No columnar mucosa identified toa/03/08/2025 15:52 By this signature, I attest that the above diagnosis is based upon my personal examination of the slides(and/or other material indicated in the diagnosis). Mukul Hdez M.D. Report Electronically Reviewed and Signed Out By Mukul Hdez M.D. 03/08/2025 15:58:33 Siri Brito M.D. History: The patient is a 69-year-old man presenting with Ortiz's esophagus with high- grade dysplasia. Operative procedure: Upper endoscopy. Specimen(s) Received: A: GE junction B: Esophagus 40-42 Gross Description: Received in two formalin jars labeled with the patient's identifiers. A. Labeled GE junction and consists of multiple simmons-red fragment(s) of soft tissue measuring 0.8 x 0.5 x 0.2 cm in aggregate. Labeled A1. Jar 0. B. Labeled esophagus 40-42 and consists of multiple white and pink fragment(s) of soft tissue measuring 0.7 x 0.7 x 0.2 cm in aggregate. Labeled B1. Jar 0. sxst/03/07/2025 12:31 PA(s): Mari Lloyd By this signature, I attest that the above diagnosis is based upon my personal examination of the slides(and/or other material). Addenda/Procedures The performance characteristics of some immunohistochemical stains, fluorescence in-situ hybridization tests and immunophenotyping by flow cytometry cited in this report (if any) were determined by the Surgical Pathology and Flow Cytometry Departments at [facility] as part of an ongoing software quality assurance engineer program and in compliance with federally mandated regulations drawn from the Clinical Laboratory Improvement Act of 1988 (CLIA '88). Some of these tests rely on the use of analyte specific reagents and are subject to specific labeling requirements by the US Food and Drug Administration. Such diagnostic tests may only be performed in a facility that is certified by the Department of Health and Human Services as a high complexity laboratory under CLIA '88. The FDA has determined that such clearance or approval is not necessary. This test is used for clinical purposes. It should not be regarded as investigational or for research. Nevertheless, federal rules concerning the medical use of analyte specific reagents require that the following disclaimer be attached to the report: This test was developed and its performance characteristics determined by the Surgical Pathology and Flow Cytometry Departments of [facility]. It has not been cleared or approved by the U. S. Food and Drug Administration. IMAGES AND SCANNED DOCUMENTS, IF INCLUDED, ONLY VIEWABLE IN PDF VERSION OF REPORT Josh Oconnell MD LAB PATHOLOGY NONI CARTER Final Result PATHOLOGY [facility] 3rd Floor [place], [place] [phone] * EGD (03/07/2025 8:49 AM CDT) Anatomical Region Laterality Modality Other Narrative Procedure Note Josh Oconnell MD - 03/07/2025 8:49 AM CDT GI ENDOSCOPY [facility] Patient Name: Kory Huerta Procedure Date: 03/07/2025 8:49 AM Date of : 1955 Admit Type: Outpatient Age: 69 Gender: Male Attending MD: Josh Oconnell M.D. Room: [facility] ENDOSCOPY ROOM 2 Note Status: Finalized Procedure: Upper GI endoscopy Indications: Ortiz's low grade dysplasia, Follow-up ofprevious ablation treatment of Ortiz's esophagus Referring MD: Lb Ford M.D. Providers: Josh Oconnell M.D. Medicines: Monitored Anesthesia Care Complications: No immediate complications. Estimated Blood Loss: Estimated blood loss: none. Procedure: The benefits, risks, and alternatives to theprocedure and sedation were discussed and informed consentwas obtained. The scope was passed under direct vision. The GIF [id number] endoscope was introduced through the mouth, and advanced to the second partof duodenum. The upper GI endoscopy was accomplished without difficulty. The patient tolerated the procedure well. Findings: The examined duodenum was normal. A hiatal hernia was found. The proximal extent of the gastric folds(end of tubular esophagus) was 43 cm from the incisors. The hiatalnarrowing was 46 cm from the incisors. The exam of the stomach was otherwise normal. The esophagus and gastroesophageal junction were examined with white light and narrow band imaging (NBI) from a forward view andretroflexed position. Sequelae of prior Ortiz's treatment were not seen. Therewas no visual evidence of Ortiz's esophagus. Mucosa was biopsied with a cold forceps for histology in 4 quadrants at intervals of 1 cm from40 to 42 cm from the incisors and at the gastroesophageal junction. Atotal of 2 specimen bottles were sent to pathology. Impression: - Normal examined duodenum. - Hiatal hernia. - Examination of previous Ortiz's treatment:There was no visual evidence of Ortiz's esophagus. Biopsied. Recommendation: - Observe in recovery area until awake and alert. - You must take your proton pump inhibitor twice aday (Omeprazole, Nexium, Prevacid, Aciphex, Prilosec, Dexilant, Protonix, Zegerid) as directed every day (usually twice a day 30 minutes before meals). - Call at [phone] ([phone]) in 5 working days for the pathology results and to schedule your next endoscopy. - Repeat the endoscopy in 12 months to perform surveillance biopsies if no residual Ortiz's isseen. - Return to your primary care physician asscheduled. Attending Participation: I personally performed the entire procedure. Electronically signed by Josh Oconnell MD Josh Oconnell M.D. 03/07/2025 9:21:37 AM . Number of Addenda: 0 Note Initiated On: 03/07/2025 8:49 AM Josh Oconnell MD ENDOSCOPY PROCEDUR ES Final Result from Last 3 Months Insurance [facility] MEDICARE MEDICARE [employer]IG[employer] MEDICARE Advance Directives For more information, please contact: [phone] * Full Code (Latest Code Status on File) Date Activated Date Inactivated Comments 03/07/2025 8:25 AM 03/07/2025 2:31 PM * Full Code Date Activated Date Inactivated Comments 08/21/2024 10:51 AM 08/21/2024 4:31 PM * Full Code Date Activated Date Inactivated Comments 03/29/2024 8:22 AM 03/29/2024 2:52 PM * Full Code Date Activated Date Inactivated Comments 09/08/2023 11:36 AM 09/08/2023 5:10 PM Care Teams Senior Test Analyst Relationship Specialty Start Date End Date Kory Handley MD PCP - General Radiology 05/20/23 Kurtis Plaza MD [address] [place] [id number] Consulting Physician Urology 04/17/25 Sid Rayo MD [address] [facility] [place] [address] Medical Oncology 04/17/25
--- OUTSIDE RECORDS SUMMARY | 2025-04-24 07:31 | XMS_ITS | Clinical Summary ---
Author Organization [facility] Address [address] [place] [phone] Care Team Providers Care Trash Collector Name Role Phone Kory Handley MD Primary Care Provider [phone] Kurtis Plaza MD Unavailable [phone] Sid Rayo MD Unavailable [phone] Allergies No known active allergies Medications atorvastatin [...] hypertension 11/16/2018 3 External hemorrhoids 07/21/2012 02/23/2023 Encounters Date Type Department Care Team Description 04/16/[address] [address] Opal Sky, RN Appointment Request 04/16/[address] [address] Opal Sky, RN Appointment Request 03/08/2025 Results Follow-Up [facility] [address] [place] [address] Medical Office Building [address], [address] [place] [phone] Reema Nelson, head housekeeper pathology 03/07/2025 9:04 AM CDT Anesthesia Event [address] [address] Carlos Sheriff MD Hubbard, Gary Lee, MARIA INES 03/07/2025 9:00 AM CDT - 03/07/2025 9:30 AM CDT Surgery [facility] Digestive [address] [address] Josh Oconnell MD ESOPHAGOGASTRODUODENOSCOPY BIOPSY 03/07/2025 8:13 AM CDT - 03/07/2025 10:00 AM CDT Hospital Encounter [facility] [address] [address] Josh Oconnell MD Ortiz's esophagus with high grade dysplasia Discharge Disposition: Discharge to home or self care 01/25/2025 Telephone [facility] [address] [place] [address] Medical Office Building [address], [address] [place] [phone] Reema Nelson RN GI preprocedure 03.07.2025 from Last 3 Months Surgical History Surgery Date Site/Laterality Comments PROSTATECTOMY HAND SURGERY UPPER GASTROINTESTINAL ENDOSCOPY COLONOSCOPY PROSTATE SURGERY HAND SURGERY trigger finger KNEE ARTHROSCOPY Medical History Medical History Date Comments Hypertension Hypertension Ortiz esophagus Cancer (HCC) Sleep apnea GERD (gastroesophageal reflux disease) Colon polyp Prostate cancer (HCC) Emphysema of lung (HCC) Cataract Family History Medical History Relation Name Comments Cancer Brother COPD Father COPD; Cause of : COPD Emphysema Father Leukemia Mother Valvular heart disease Mother Africau lar Heart Disease; Relation Name Status Comments Brother Father (Age 70) Mother Alive Social History Tobacco Use Types Packs/Day Years [...] on file 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 Gender Identity Not on file Sexual Orientation Not on file Obstetrics History Last Filed Vital Signs Vital Sign Reading [...] 03/07/2025 8:28 AM CDT Plan of Treatment Health Maintenance Due Date Last Done Comments Colon Cancer Screening-Colonoscopy 1955 Depression Screening 1955 Hepatitis C Screening 1955 Prostate Cancer Screening-PSA 1955 DTaP/Tdap/Td Vaccine (1 - Tdap) 1967 Hepatitis B Screening 1974 Pneumococcal vaccine 65+ (1 of 2 - PCV) 1975 Zoster Vaccine (1 of 2) 07/04/2017 05/09/2017 Abdominal Aortic Aneurysm (AAA) Screen 2021 Well Visit 65+ 2021 Influenza Vaccine (#1) 2025 09/21/2020, 2014 Fall Risk Assessment 03/07/2026 03/07/2025 Procedures Procedure Name Priority Date/Time Associated Diagnosis [...] results best viewed via link to PDF [facility] [place] [address] Note to Patients: This report may contain [...] Gender: M : 1955 (Age: 69) Address: [facility] [place] [address] Hospital #: [id number] Taken:03/07/2025 Received:03/07/2025 Reported: 03/08/2025 Patient Type: [facility] Service: Gastro Location: Physician(s): Berry Amado MD [...] Surgical Pathology and Flow Cytometry Departments at [facility] as part of an ongoing quality assurance inspector program and in compliance with federally mandated [...] Surgical Pathology and Flow Cytometry Departments of [facility]. It has not been cleared or approved by the U. S. Food and Drug Administration. IMAGES AND SCANNED DOCUMENTS, IF INCLUDED, ONLY VIEWABLE IN PDF VERSION OF REPORT Josh Oconnell MD LAB PATHOLOGY ORDCamila CARTER Final Result PATHOLOGY [facility] 3rd Floor [place], [place] [phone] * EGD (03/07/2025 8:49 AM CDT) Anatomical Region Laterality Modality Other Narrative Procedure Note Josh Oconnell MD - 03/07/2025 8:49 AM CDT GI ENDOSCOPY [facility] Patient Name: Kory Huerta Procedure Date: 03/07/2025 8:49 AM Date of : 1955 Admit Type: Outpatient Age: 69 Gender: Male Attending MD: Josh Oconnell M.D. Room: [facility] ENDOSCOPY ROOM 2 Note Status: Finalized Procedure: [...] passed under direct vision. The GIF [id number] endoscope was introduced through the mouth, and [...] 30 minutes before meals). - Call at [phone] ([phone]) in 5 working days for the pathology [...] Final Result from Last 3 Months Insurance [facility] MEDICARE MEDICARE [facility] MEDICARE Advance Directives For more information, please contact: [phone] * Full Code (Latest Code Status on File) Date Activated Date Inactivated Comments 03/07/2025 8:25 AM 03/07/2025 2:31 PM * Full Code Date Activated Date Inactivated Comments 08/21/2024 10:51 AM 08/21/2024 4:31 PM * Full Code Date Activated Date Inactivated Comments 03/29/2024 8:22 AM 03/29/2024 2:52 PM * Full Code Date Activated Date Inactivated Comments 09/08/2023 11:36 AM 09/08/2023 5:10 PM Care Teams Trash Collector Relationship Specialty Start Date End Date Kory Handley MD PCP - General Radiology 05/20/23 Kurtis Plaza MD [address] [facility] [address] [place] [address] Consulting Physician Urology 04/17/25 Sid Rayo MD [address] [facility] MEDICAL ONCOLOGY, [address], [address] [address] Medical Oncology 04/17/25
== END 2025-04-24 07:28 | disposition home or self-care (01) ==
PROVIDERS: PCP Nurse Practitioner; Visit Provider Urology
DX: C61 Malignant neoplasm of prostate (principal)
CPT/HCPCS: 78815; A9596

== ENCOUNTER 2025-09-13 18:16 | Emergency (ER) | payer OTHER, MEDICARE, SELFPAY ==
--- OUTSIDE RECORDS SUMMARY | 2025-09-11 12:20 | XMS_ITS | Encounter Summary ---
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) Procedures NM bone scan whole body Sid Rayo MD [address] [place] [address] Phone: tel: fax: [address] [phone] Referral ID Status Reason Start Date Expiration Date Visits Re quested Visits Authorized [id number] Closed 07/19/2025 08/18/2026 2 2 CTOR ADVERTISING Reason for Visit * Diagnostic Imaging (Routine) - Closed Specialty Diagnoses / Procedures Referred By Contac t Referred To Contact Diagnoses 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) Procedures NM bone scan whole body Sid Rayo MD [address] [place] [address] Phone: tel: fax: [address] [phone] Referral ID Status Reason Start Date Expiration Date Visits Re quested Visits Authorized [id number] Closed 07/19/2025 08/18/2026 2 2 Encounter Details Date Type Department Care Team (Latest Contact Info) Description 09/11/2025 12:20 PM DIRECTOR ADVERTISING - 09/11/2025 11:59 PM DIRECTOR ADVERTISING Hospital Encounter [facility] [address] [place] [address] Prostate cancer metastatic to bone (HCC); 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 Denies 07/28/2025 Sex and Gender Information Value Date Recorded Sex Assigned at Not on file Legal Sex Male 12:00 AM DIRECTOR ADVERTISING Gender Identity Not on file Sexual Orientation Not on file documented as of this encounter Medications at Time of Discharge atorvastatin (LIPITOR) 40 mg tablet Take 1 tablet (40 mg total) by mouth daily 30 tablet 11 07/17/2025 hydroCHLOROthiazi de (HYDRODIURIL) 25 mg tablet 08/26/2018 [facility] apalutamide (2022-10-120/7827 [id number]) 60 mg tablet Take 4 tablets (240 mg total) by mouth daily Take at about the same time each day with water. May be taken with or without food. Avoid grapefruit products, Mcgrann oranges, pomelos, and herbal supplements. 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 Swallow tablets whole; do not crush or chew. Dispense in original container. 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 Dictated by: Chris Sepulveda MD The radiology attending physician has personally reviewed this study, and had reviewed and/or edited this written report and agrees with it. Electronically signed by: DO Familia Villatoro 09/11/2025 4:56 PM DIRECTOR ADVERTISING EXAMINATION: BONE SCINTIGRAPHY (WHOLE-BODY) DATE OF STUDY: 09/11/2025 RADIOPHARMACEUTICAL: 19.7 mCi Tc-99m MDP i.v. HISTORY: Patient with prostate cancer metastatic to pelvic lymph nodes. FINDINGS: Delayed whole-body scintigrams were obtained. Prior nuclear medicine studies used for comparison: Bone scintigraphy from 07/03/2025 Other radiographic comparisons: CT from 09/11/2025 Degenerative uptake in the shoulders, elbows, knees, and feet. No other foci of abnormal tracer uptake. Procedure Note Lencho Wood DO - 09/11/2025 EXAMINATION: BONE SCINTIGRAPHY (WHOLE-BODY) DATE OF STUDY: 09/11/2025 RADIOPHARMACEUTICAL: 19.7 mCi Tc-99m MDP i.v. HISTORY: Patient with prostate cancer metastatic to pelvic lymph nodes. FINDINGS: Delayed whole-body scintigrams were obtained. Prior nuclear medicine studies used for comparison: Bone scintigraphy from 07/03/2025 Other radiographic comparisons: CT from 09/11/2025 Degenerative uptake in the shoulders, elbows, knees, and feet. No other foci of abnormal tracer uptake. IMPRESSION: No scintigraphic evidence of osseous metastatic disease. Dictated by: Chris Sepulveda MD The radiology attending physician has personally reviewed this study, and had reviewed and/or edited this written report and agrees with it. 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) documented in this encounter Administered Medications Inactive Administered Medications - up to 3 most recent administrations Medication Order MAR Action Action Date Dose Rate Site tc-99m medronate (MDP) injection 20 millicurie 20 millicurie, intravenous, Once in imaging, radiopharmaceutical, Starting on Wed09/11/25 at 1248, For 1 dose, Indications: Diagnostic RadiographyIndications:Kia gnostic Radiography Given 09/11/2025 1:08 PM DIRECTOR ADVERTISING 19.69 millicuries documented in this encounter Orders Medications Ordered That Ramakrishna ht Not Have Been Administered Count Last Ordered Date First Ordered Date tc-99m medronate (MDP) injec tion 20 millicurie 1 09/11/2025 documented in this encounter Care Teams Cover Creaser Relationship Specialty Start Date End Date Mingo Handley MD PCP - General Radiology 05/20/23 Kurtis Plaza MD [address] [place] [address] Consulting Physician Urology 04/17/25 Sid Rayo MD [address] [place] [phone] Medical Oncology 04/17/25 Sushil Ferguson MD [address] [place] [phone] Radiation Oncology 05/07/25 documented as of this encounter
--- OUTSIDE RECORDS SUMMARY | 2025-09-11 12:39 | XMS_ITS | Encounter Summary ---
Author Organization 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) Procedures NM bone scan whole body Sid Rayo MD [address] [facility] [address] [place] [address] Phone: tel: fax: [address] [phone] Referral ID Status Reason Start Date Expiration Date Visits Re quested Visits Authorized [id number] Closed 07/19/2025 08/18/2026 2 2 Encounter Details Date Type Department Care Team (Latest Contact Info) Description 09/11/2025 12:39 PM PRINCIPAL CLERK - 09/11/2025 11:59 PM PRINCIPAL CLERK Hospital Encounter [facility] [place] [address] Arrived Discharge Disposition: Discharge to home or self [...] when you are drinking? 3 or 4 5 Frequency of Binge Drinking Not on file 01/2025 Personal Safety Answer Date Recorded Have you ever been in or are you currently in a harmful physical or emotional relationship or is someone making you feel afraid or unsafe? Denies 07/28/2025 Sex and Gender Information Value Date Recorded Sex Assigned at Not on file Legal Sex Male 12:00 AM PRINCIPAL CLERK Gender Identity Not on file Sexual Orientation Not on file documented as of this encounter Medications at Time of Discharge atorvastatin (LIPITOR) 40 mg tablet Take 1 tablet (40 mg total) by mouth daily 30 tablet 11 07/17/2025 hydroCHLOROthiazi de (HYDRODIURIL) 25 mg tablet 08/26/2018 [facility] apalutamide (2022-10-120/7827 [id number]) 60 mg tablet Take 4 tablets (240 mg total) by mouth daily Take at about the same time each day with water. May be taken with or without food. Avoid grapefruit products, Gibson oranges, pomelos, and herbal supplements. 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 Dictated by: Chris Sepulveda MD The radiology attending physician has personally reviewed this study, and had reviewed and/or edited this written report and agrees with it. Electronically signed by: Lencho Wood DO Narrative 09/11/2025 4:56 PM PRINCIPAL CLERK EXAMINATION: BONE SCINTIGRAPHY (WHOLE-BODY) DATE OF STUDY: [...] Electronically signed by: Lencho Wood DO us iSd Rayo MD IMG NM PROCEDURES Final Result documented in this encounter Visit Diagnoses Not on filedocumented in this encounter Care Teams Rice Milling Supervisor Relationship Specialty Start Date End Date Mingo Handley MD PCP - General Radiology 05/20/23 Kurtis Plaza MD [address] [place] [phone] Consulting Physician Urology 04/17/25 Sid Rayo MD [address] [place] [phone] Medical Oncology 04/17/25 Sushil Ferguson MD [address] [place] [address] Radiation Oncology 05/07/25 documented as of this encounter
--- OUTSIDE RECORDS SUMMARY | 2025-09-11 12:40 | XMS_ITS | Encounter Summary ---
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) Procedures CT chest abdomen pelvis with contrast Sid Rayo MD [address] [place] [address] Phone: tel: fax: [address] [phone] Referral ID Status Reason Start Date Expiration Date Visits Re quested Visits Authorized [id number] Closed 07/19/2025 08/18/2026 1 1 RAIL HOOKER Reason for Visit * MRI/CAT/PET Scan (Routine) - Closed Specialty Diagnoses / Procedures Referred By Contac t Referred To Contact Radiology Diagnoses 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) Procedures CT chest abdomen pelvis with contrast Sid Rayo MD [address] [place] [address] Phone: tel: fax: [facility] [address] [facility] [address] Referral ID Status Reason Start Date Expiration Date Visits Re quested Visits Authorized [id number] Closed 07/19/2025 08/18/2026 1 1 Encounter Details Date Type Department Care Team (Latest Contact Info) Description 09/11/2025 12:40 PM MONORAIL HOOKER - 09/11/2025 11:59 PM MONORAIL HOOKER Hospital Encounter [facility] [address] [place] [id number] Prostate cancer metastatic to bone (HCC); Prostate [...] on file Legal Sex Male 12:00 AM MONORAIL HOOKER Gender Identity Not on file Sexual Orientation Not on file documented as of this encounter Medications at Time of Discharge atorvastatin (LIPITOR) 40 mg tablet Take 1 tablet (40 mg total) by mouth daily 30 tablet 11 07/17/2025 hydroCHLOROthiazi de (HYDRODIURIL) 25 mg tablet 08/26/2018 [id number] apalutamide (2022-10-120/7827 [id number]) 60 mg tablet Take 4 tablets (240 mg total) by mouth daily Take at about the same time each day with water. May be taken with or without food. Avoid grapefruit products, [place] oranges, pomelos, and herbal supplements. 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 Postsurgical changes of prostatectomy with interval increase in the size of enhancing soft tissue involving the posterior bladder neck as well as the right greater than left peritoneal reflections. 2. Interval increase in the degree of omental nodularity compatible with peritoneal carcinomatosis. 3. Unchanged indeterminate 3 mm left lower lobe pulmonary nodule. Dictated by: Kim Murguia MD, MPH The radiology attending physician has personally reviewed this study, and had reviewed and/or edited this written report and agrees with it. Electronically signed by: Ej Lim M.D. Narrative 09/11/2025 4:25 PM MONORAIL HOOKER EXAMINATION: Computed tomography of the chest, abdomen and pelvis with intravenous contrast HISTORY: 69-year-old male with metastatic prostate cancer TECHNIQUE: Transaxial computed tomographic images of the chest, abdomen and pelvis were obtained with intravenous contrast according to the standard protocol after the administration of 97 mL Opti-Ray 350 intravenous contrast. COMPARISON: CT 07/03/2025 FINDINGS: Chest: Saber sheath trachea. Central airways are patent. Unchanged 3 mm medial left lower lobe pulmonary nodule (3:56). No new suspicious pulmonary nodule. No lobar consolidation. No pleural effusion. No pneumothorax. No suspicious thyroid nodule. No suspicious supraclavicular or axillary lymphadenopathy. No suspicious mediastinal or hilar lymph node. Heart size is within normal limits. No pericardial effusion. Coronary artery calcifications are present. Central pulmonary arteries are patent. Moderate-severe atherosclerosis of the thoracic aorta. The distal esophagus is unremarkable. Abdomen/Pelvis: Too small to characterize hypoattenuating lesions in the left hemiliver measuring 1.0 cm, unchanged. No new focal solid liver lesion. No intrahepatic or extrahepatic biliary ductal dilatation. The portal and superior mesenteric veins are patent. Cholelithiasis without evidence of acute cholecystitis. The spleen, pancreas and bilateral adrenal glands are unremarkable. Additional too small to characterize hypoattenuating lesions are noted within bilateral kidneys. No obstructing stone or hydronephrosis. The urinary bladder is partially decompressed. Postsurgical changes of radical prostatectomy. There is slight interval increase in size is stable enhancing soft tissue extending superiorly from the neck of the bladder and abutting the sigmoid colon. The component on the right measures 3.0 cm previously 2.3 cm. The component on the left measures 1.8 cm, previously 1.5 cm. Colonic diverticulosis without evidence of acute diverticulitis. No bowel obstruction. Moderate atherosclerotic calcifications of the abdominal aorta and its branching vessels. The celiac axis and superior mesenteric arteries are patent. Redemonstrated findings of omental nodularity in bilateral upper quadrant, which appears to have increased in degree compared to prior. Small fat-containing umbilical and inguinal hernias. Grade 1 anterolisthesis of L4-L5. Degenerative disease of the spine. No suspicious osseous lesions. Procedure Note Ej Lim MD - 09/11/2025 EXAMINATION: Computed tomography of the chest, abdomen and pelvis with intravenous contrast HISTORY: 69-year-old male with metastatic prostate cancer TECHNIQUE: Transaxial computed tomographic images of the chest, abdomen and pelvis were obtained with intravenous contrast according to the standard protocol after the administration of 97 mL Opti-Ray 350 intravenous contrast. COMPARISON: CT 07/03/2025 FINDINGS: Chest: Saber sheath trachea. Central airways are patent. Unchanged 3 mm medial left lower lobe pulmonary nodule (3:56). No new suspicious pulmonary nodule. No lobar consolidation. No pleural effusion. No pneumothorax. No suspicious thyroid nodule. No suspicious supraclavicular or axillary lymphadenopathy. No suspicious mediastinal or hilar lymph node. Heart size is within normal limits. No pericardial effusion. Coronary artery calcifications are present. Central pulmonary arteries are patent. Moderate-severe atherosclerosis of the thoracic aorta. The distal esophagus is unremarkable. Abdomen/Pelvis: Too small to characterize hypoattenuating lesions in the left hemiliver measuring 1.0 cm, unchanged. No new focal solid liver lesion. No intrahepatic or extrahepatic biliary ductal dilatation. The portal and superior mesenteric veins are patent. Cholelithiasis without evidence of acute cholecystitis. The spleen, pancreas and bilateral adrenal glands are unremarkable. Additional too small to characterize hypoattenuating lesions are noted within bilateral kidneys. No obstructing stone or hydronephrosis. The urinary bladder is partially decompressed. Postsurgical changes of radical prostatectomy. There is slight interval increase in size is stable enhancing soft tissue extending superiorly from the neck of the bladder and abutting the sigmoid colon. The component on the right measures 3.0 cm previously 2.3 cm. The component on the left measures 1.8 cm, previously 1.5 cm. Colonic diverticulosis without evidence of acute diverticulitis. No bowel obstruction. Moderate atherosclerotic calcifications of the abdominal aorta and its branching vessels. The celiac axis and superior mesenteric arteries are patent. Redemonstrated findings of omental nodularity in bilateral upper quadrant, which appears to have increased in degree compared to prior. Small fat-containing umbilical and inguinal hernias. Grade 1 anterolisthesis of L4-L5. Degenerative disease of the spine. No suspicious osseous lesions. IMPRESSION: 1. Postsurgical changes of prostatectomy with interval increase in the size of enhancing soft tissue involving the posterior bladder neck as well as the right greater than left peritoneal reflections. 2. Interval increase in the degree of omental nodularity compatible with peritoneal carcinomatosis. 3. Unchanged indeterminate 3 mm left lower lobe pulmonary nodule. Dictated by: Kim Murguia MD, MPH The radiology attending physician has personally reviewed this study, and had reviewed and/or edited this written report and agrees with it. Electronically signed by: Ej Lim M.D. 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) documented in this encounter Administered Medications Inactive Administered Medications - up to 3 most recent administrations Medication Order MAR Action Action Date Dose Rate Site ioversoL (OPTIRAY 350) syringe 100 mL 100 mL, intravenous, Once in imaging, contrast, Starting on Wed09/11/25 at 1512, For 1 dose Contrast Given 09/11/2025 3:19 PM MONORAIL HOOKER 97 mL documented in this encounter Orders Medications Ordered That Ramakrishna ht Not Have Been Administered Count Last Ordered Date First Ordered Date ioversoL (OPTIRAY 350) syringe 100 mL 1 06/2025 documented in this encounter Care Teams Vice President Of Procurement Relationship Specialty Start Date End Date Mingo Handley MD PCP - General Radiology 05/20/23 Kurtis Plaza MD [address] [place] [id number] Consulting Physician Urology 04/17/25 Sid Rayo MD [address] [place] [address] Medical Oncology 04/17/25 Sushil Ferguson MD [address] [place] [id number] Radiation Oncology 05/07/25 documented as of this encounter
[2025-09-13] VITALS (43 sets, daily range): BP systolic 83–153; BP diastolic 37–117; PULSE 54–103; RESP 12–25; TEMP 36.7; O2SAT 91–100
--- NOTE | ~2025-09-13 | CT_ITS ---
EXAMINATION: CT brain wo con DATE: 09/13/2025 19:47 INDICATION: Altered mental status. TECHNIQUE: Computed tomography (CT) of the head was performed without intravenous contrast. The mA was adjusted according to patient size. Iterative reconstruction technique was employed. The dose-length product was 1276.84 mGy-cm. COMPARISON: None FINDINGS: No acute intracranial bleed. No evidence of extra-axial collections. No midline shift. No effacement of sulci. No acute bone changes. IMPRESSION: 1. Limited noncontrast CT head shows no acute intracranial lesions. Reviewed, dictated and finalized at location T. JACK NOZZLEMAN
--- NOTE | ~2025-09-13 | XR_ITS ---
EXAMINATION: XR chest 1V portable DATE: 09/13/2025 18:53 INDICATION: Hypotension. TECHNIQUE: A single frontal view of the chest was obtained. COMPARISON: None available FINDINGS: Heart size is normal. Atherosclerotic aorta. Clear lungs. IMPRESSION: 1. No acute pulmonary findings. Reviewed, dictated and finalized at location T. ACTIVE SURGEON
--- OUTSIDE RECORDS SUMMARY | 2025-09-13 08:00 | XMS_ITS | Encounter Summary ---
Author Organization [facility] Healthcare Address [address] [place] [address] Care Team Providers Care Acrylic Fabricator Name Role Phone Mingo Handley MD Primary Care Provider [phone] Kurtis Plaza MD Unavailable [phone] Sid Rayo MD Unavailable [phone] Sushil Ferguson MD Unavailable [phone] Encounter Details Date Type Department Care Team (Late st Contact Info) Description 09/13/2025 8:00 AM THERAPEUTIC RECREATION ASSISTANT Lab [facility] [place] - Lab Collection [address] 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) Social History Tobacco Use Types Packs/Day Years [...] on file Legal Sex Male 12:00 AM THERAPEUTIC RECREATION ASSISTANT Gender Identity Not on file Sexual Orientation Not on file documented as of this encounter Functional Status documented as of this encounter Plan of Treatment Not on file documented as of this encounter Procedures Procedure Name Priority Date/Time Associated Diagnosis Comments EGFR STAT 09/13/2025 8:08 AM THERAPEUTIC RECREATION ASSISTANT 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) DIFFERENTIAL AUTO STAT 09/13/2025 8:0 8 AM THERAPEUTIC RECREATION ASSISTANT 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) CBC WITH AUTO DIFFERENTIAL STAT 09/13/2025 8:08 AM THERAPEUTIC RECREATION ASSISTANT 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) APTT STAT 09/13/2025 8:08 AM THERAPEUTIC RECREATION ASSISTANT 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) PROTIME-INR STAT 09/13/2025 8:08 AM THERAPEUTIC RECREATION ASSISTANT 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) CRP (ACUTE PHASE) STAT 09/13/2025 8:0 8 AM THERAPEUTIC RECREATION ASSISTANT 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) URIC ACID STAT 09/13/2025 8:08 AM THERAPEUTIC RECREATION ASSISTANT 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) PSA DIAGNOSTIC Routine 09/13/2025 8:08 AM THERAPEUTIC RECREATION ASSISTANT 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) PHOSPHORUS STAT 09/13/2025 8:08 AM THERAPEUTIC RECREATION ASSISTANT 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) LIPASE STAT 09/13/2025 8:08 AM THERAPEUTIC RECREATION ASSISTANT 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) GAMMA GT STAT 09/13/2025 8:08 AM THERAPEUTIC RECREATION ASSISTANT 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) FERRITIN STAT 09/13/2025 8:08 AM THERAPEUTIC RECREATION ASSISTANT 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 73 m2 Comment: Interpretive Data Reference Interval Normal >/= 90 mL/min/1.73m2 Mildly decreased* 60 - 89 mL/min/1.73m2 Mildly to moderately decreased 45 - 59 mL/min/1.73m2 Moderately to severely decreased 30 - 44 mL/min/1.73m2 Severely decreased 15 - 29 mL/min/1.73m2 Kidney Failure < 15 mL/min/1.73m2 *Relative to young adult level Estimated glomerular filtration rate is determined by the 2020 CKD-EPI equation recommended by the National Kid[employer] (A Unifying Approach to GFR Estimation: Recommendations of the NKF-ASK Task Force on Reassessing the Inclusion of Race in Diagnosing Kidney Disease, JASN 2020). The CKD-EPI equation should not be used for patients with unstable renal function and has not been validated in children and those over 70. Current interpretive data was last reviewed 2021. Blood 09/13/2025 8:08 AM THERAPEUTIC RECREATION ASSISTANT 09/13/2025 8:22 AM THERAPEUTIC RECREATION ASSISTANT us Sid Rayo MD LAB BLOOD ORDERABLES Fin al Result [facility] Department [place] [address] * Differential, auto (09/13/2025 8:08 AM THERAPEUTIC RECREATION ASSISTANT) Neutrophil abs 2.55 1.50 - 6.50 K/cumm Comment:Testing performed by : [facility], [address] [place] [phone] Lymphocyte abs 1.62 0.80 - 3.30 K/cumm [facility] Comment:Testing performed by : [facility], [address] [place] [address] Monocyte abs 0.68 0.20 - 0.80 K/cumm [facility] Comment:Testing performed by : [facility], [address] [place], [place] [id number] Eosinophil abs 0.17 0.00 - 0.50 K/cumm [facility] Comment:Testing performed by : [facility], [address] [place] [phone] Basophil abs 0.05 0.00 - 0.10 K/cumm [facility] Comment:Testing performed by : [facility], [address] [place] [phone] Neutrophil pct 50.3 % [facility] Comment: Interpretive Data Percent cell count reference ranges are not reported, since discordance with absolute values may lead to misinterpretation of CBC data. Current Interpretive Data was last revised on 2018. Testing performed by: [facility], [address] [place] [phone] Lymphocyte pct 32.1 % [facility] Comment: Interpretive Data Percent cell count reference ranges are not reported, since discordance with absolute values may lead to misinterpretation of CBC data. Current Interpretive Data was last revised on 2018. Testing performed by: [facility], [address] [place] [phone] Monocyte pct 13.4 % [facility] Comment: Interpretive Data Percent cell count reference ranges are not reported, since discordance with absolute values may lead to misinterpretation of CBC data. Current Interpretive Data was last revised on 2018. Testing performed by: [facility], [address] [place] [phone] Eosinophil pct 3.3 % [facility] Comment: Interpretive Data Percent cell count reference ranges are not reported, since discordance with absolute values may lead to misinterpretation of CBC data. Current Interpretive Data was last revised on 2018. Testing performed by: [facility], [address] [place] [address] Basophil pct 0.9 % [facility] Comment: Interpretive Data Percent cell count reference ranges are not reported, since discordance with absolute values may lead to misinterpretation of CBC data. Current Interpretive Data was last revised on 2018. Testing performed by: [facility], [address] [place] [address] Blood 09/13/2025 8:08 AM THERAPEUTIC RECREATION ASSISTANT 09/13/2025 8:19 AM THERAPEUTIC RECREATION ASSISTANT us Sid Rayo MD LAB BLOOD ORDERABLES Fin al Result [facility] Department [place] [address] * CBC with auto differential (09/13/2025 8:08 AM THERAPEUTIC RECREATION ASSISTANT) WBC 5.06 3.80 - 9.90 K/cumm Comment:Testing performed by : [facility], [address] [place] [address] Hgb 14.1 13.0 - 17.5 g/dL [facility] Comment:Testing performed by : [facility], [address] [place] [address] Hct 41.2 38.9 - 50.3 % [facility] Comment:Testing performed by : [facility], [address] [place] [address] Plt 171 150 - 400 K/cumm [facility] Comment:Testing performed by : [facility], [address] [place], [place] [phone] MPV 8.5 6.8 - 10.4 fL [facility] Comment:Testing performed by : [facility], [address] [place], [place] [phone] RBC 4.43 4.30 - 5.80 M/cumm [facility] Comment:Testing performed by : [facility], [address] [place], [place] [phone] MCV 93.1 81.3 - 96.4 fL [facility] Comment:Testing performed by : [facility], [address] [place], [place] [id number] MCH 31.9 27.1 - 33.3 pg [facility] Comment:Testing performed by : [facility], [address] [place], [place] [id number] MCHC 34.3 32.3 - 35.7 g/dL [facility] Comment:Testing performed by : [facility], [address] [place], [place] [phone] RDW CV 12.9 11.1 - 14.9 % [facility] Comment:Testing performed by : [facility], [address] [place] [address] NRBC abs 0.00 0.00 - 0.01 K/cumm [facility] Comment:Testing performed by : [facility], [address] [place] [address] Blood 09/13/2025 8:08 AM THERAPEUTIC RECREATION ASSISTANT 09/13/2025 8:19 AM THERAPEUTIC RECREATION ASSISTANT us Sid Rayo MD LAB BLOOD ORDERABLES Fin al Result [facility] Department [place] [address] * Comprehensive metabolic panel (09/13/2025 8:08 AM THERAPEUTIC RECREATION ASSISTANT) Sodium 140 135 - 145 mmol/L Potassium, pl 3.9 3.3 - 4.9 mmol/L [facility] Chloride 104 97 - 110 mmol/L [facility] CO2 29 22 - 32 mmol/L [facility] Anion gap 7 2 - 15 mmol/L [facility] BUN 18 6 - 25 mg/dL [facility] Creatinine 0.84 0.80 - 1.30 mg/dL [facility] Glucose 90 70 - 199 mg/dL [facility] Comment: Interpretive Data Fasting glucose >/= 126 mg/dl is diagnostic for diabetes. Fasting is defined as no caloric intake for at least 8 hours. Fasting glucose between 100 mg/dl to 125 mg/dl is diagnostic of prediabetes. In a patient with classic symptoms of hyperglycemia or hyperglycemic crisis, a random glucose >/= 200 mg/dl is diagnostic for diabetes. In the absence of unequivocal hyperglycemia, results should be confirmed by repeat testing. The classification and Diagnosis of Diabetes Diabetes Care 202; 46: S19-S40. Current interpretive data was last revised 2022. Calcium 9.4 8.5 - 10.3 mg/dL [facility] Bilirubin, total 0.3 0.1 - 1.2 mg/dL [facility] Protein, pl 6.7 6.5 - 8.5 g/dL [facility] Albumin 4.2 3.5 - 5.0 g/dL [facility] Alk phos 86 40 - 130 Units/L [facility] ALT 22 7 - 55 Units/L [facility] AST 33 10 - 50 Units/L [facility] Blood 09/13/2025 8:08 AM THERAPEUTIC RECREATION ASSISTANT 09/13/2025 8:22 AM THERAPEUTIC RECREATION ASSISTANT us Sid Rayo MD LAB BLOOD ORDERABLES Fin al Result [facility] Department of Laboratories [place], [place] [id number] * Gamma GT (09/13/2025 8:08 AM THERAPEUTIC RECREATION ASSISTANT) GGT 28 10 - 50 Units/L Blood 09/13/2025 8:08 AM THERAPEUTIC RECREATION ASSISTANT 09/13/2025 8:22 AM THERAPEUTIC RECREATION ASSISTANT us Sid Rayo MD LAB BLOOD ORDERABLES Fin al Result Performing Organization Address City/[facility] Co de Phone Number [facility] [place] [address] * Uric acid (09/13/2025 8:08 AM THERAPEUTIC RECREATION ASSISTANT) Uric acid 4.0 3.0 - 8.0 mg/dL Blood 09/13/2025 8:08 AM THERAPEUTIC RECREATION ASSISTANT 09/13/2025 8:22 AM THERAPEUTIC RECREATION ASSISTANT us Sid Rayo MD LAB BLOOD ORDERABLES Fin al Result Performing Organization Address [facility] [place] [address] * Phosphorus (09/13/2025 8:08 AM THERAPEUTIC RECREATION ASSISTANT) Phosphorus, pl 3.5 2.3 - 4.5 mg/dL Blood 09/13/2025 8:08 AM THERAPEUTIC RECREATION ASSISTANT 09/13/2025 8:22 AM THERAPEUTIC RECREATION ASSISTANT us Sid Rayo MD LAB BLOOD ORDERABLES Fin al Result Performing Organization Address [facility] Co de Phone Number [facility] [address] * Amylase (09/13/2025 8:08 AM THERAPEUTIC RECREATION ASSISTANT) Amylase 67 30 - 99 Units/L Blood 09/13/2025 8:08 AM THERAPEUTIC RECREATION ASSISTANT 09/13/2025 8:22 AM THERAPEUTIC RECREATION ASSISTANT us Sid Rayo MD LAB BLOOD ORDERABLES Fin al Result Performing Organization Address [facility] Co de Phone Number [facility] [place] [address] * Lipase (09/13/2025 8:08 AM THERAPEUTIC RECREATION ASSISTANT) Pathologist [facility] Lipase 46 10 - 99 Units/L Blood 09/13/2025 8:08 AM THERAPEUTIC RECREATION ASSISTANT 09/13/2025 8:22 AM THERAPEUTIC RECREATION ASSISTANT Sid Rayo MD LAB BLOOD ORDERABLES Fin al Result Performing Organization Address [facility] de Phone Number [facility] [place] [address] * Ferritin (09/13/2025 8:08 AM THERAPEUTIC RECREATION ASSISTANT) [facility] Ferritin 204 30 - 400 ng/mL Blood 09/13/2025 8:08 AM THERAPEUTIC RECREATION ASSISTANT 09/13/2025 8:22 AM THERAPEUTIC RECREATION ASSISTANT Sid Rayo MD LAB BLOOD ORDERABLES Fin al Result Performing Organization Address [facility] de Phone Number [facility] [place] [address] * CRP (acute phase) (09/13/2025 8:08 AM THERAPEUTIC RECREATION ASSISTANT) [facility] CRP <0.5 <=10.0 mg/L Blood 09/13/2025 8:08 AM THERAPEUTIC RECREATION ASSISTANT 09/13/2025 8:41 AM THERAPEUTIC RECREATION ASSISTANT Sid Rayo MD LAB BLOOD ORDERABLES Fin al Result Performing Organization Address [facility] [place] [address] * Protime-INR (09/13/2025 8:08 AM THERAPEUTIC RECREATION ASSISTANT) [facility] PT 11.1 10.2 - 13.5 sec INR 0.98 0.90 - 1.20 [facility] Comment: Interpretive data Oral anticoagulant therapeutic ranges: Venous thromboembolism prophylaxis or treatment: 2.0-3.0 CARDIOLOGY Standard range: 2.0-3.0 High-intensity range: 2.5-3.5 Refer to indication-specific guidelines for appropriate target ranges for prosthetic heart valve replacement. Current interpretive data was last revised on 2019. Blood 09/13/2025 8:08 AM THERAPEUTIC RECREATION ASSISTANT 09/13/2025 8:41 AM THERAPEUTIC RECREATION ASSISTANT Sid Rayo MD LAB BLOOD ORDERABLES Fin al Result Performing Organization Address [facility] de Phone Number [facility] [place] [address] * aPTT (09/13/2025 8:08 AM THERAPEUTIC RECREATION ASSISTANT) aPTT 29 26 - 38 sec Comment: Interpretive Data Heparin therapeutic range: 66.0 - 100.0 seconds. Range based on correlation with therapeutic heparin activity range of 0.3 - 0.7 Units/mL. Blood 09/13/2025 8:08 AM THERAPEUTIC RECREATION ASSISTANT 09/13/2025 8:41 AM THERAPEUTIC RECREATION ASSISTANT Sid Rayo MD LAB BLOOD ORDERABLES Fin al Result Performing Organization Address [facility] de Phone Number [facility] [place] [address] * (ABNORMAL) PSA diagnostic (09/13/2025 8:08 AM THERAPEUTIC RECREATION ASSISTANT) PSA-Total 5.52(H) <=5.40 ng/mL Comment: Interpretive Data AGE SEX REFERENCE INTERVAL 0 minutes-150 years Female None 0 minutes-49 years Male None 50-59 years Male 0-3.90 60-69 years Male 0-5.40 70-79 years Male 0-6.20 80-150 years Male 0-6.20 The [employer] PSA Total assay procedure was used. Results from different manufacturers or methods may not be comparable. Serial testing should be performed using the same method. Current interpretive data last revised 22. 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
--- OUTSIDE RECORDS SUMMARY | 2025-09-13 08:30 | XMS_ITS | Encounter Summary ---
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
--- OUTSIDE RECORDS SUMMARY | 2025-09-13 09:30 | XMS_ITS | Encounter Summary ---
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) History of prostatectomy History of radiation therapy History of hormone therapy Elevated PSA Referral, Self [facility] [address] [place] [phone] Phone: tel: fax: Referral ID Status Reason Start Date Expiration Date Visits Requested Visits Authorized [id number] Authorized Specialty Services Required 04/16/2025 07/12/2026 99 99 Encounter Details Date Type Department Care Team (Late st Contact Info) Description 09/13/2025 9:30 AM LAP REGULATOR Office Visit [facility] [address] [place] [address] Sid Rayo MD [address] [place] [address] Prostate cancer metastatic to bone (HCC); Prostate [...] on file Legal Sex Male 12:00 AM LAP REGULATOR Gender Identity Not on file Sexual Orientation Not on file documented as of this encounter Last Filed Vital Signs Vital Sign Reading Time Taken Comments Blood Pressure 145/86 09/13/2025 8:15 AM LAP REGULATOR Pulse 68 09/13/2025 8:15 AM LAP REGULATOR Temperature 36.1 C (97 F) 09/13/2025 8:15 AM LAP REGULATOR Respiratory Rate 18 09/13/2025 8:15 AM LAP REGULATOR Oxygen Saturation 97% 09/13/2025 8:15 AM LAP REGULATOR Inhaled Oxygen Concentration - - Weight 110.7 kg (244 lb) 09/13/2025 8:15 AM LAP REGULATOR Height - - Body Mass Index 34.12 08/01/2025 11:09 AM CDT documented in this encounter Functional Status documented as of this encounter Progress Notes * Davon Farooq MD - 09/13/2025 9:30 AM CST Images from the original note were not included. 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 Robotic radical prostatectomy 11/2021, 4+5 adenocarcinoma with bilateral seminal vesicle involvement, right bladder neck involvement, negative lymph nodes ADT x6 months +salvage radiation to the pelvis 2021 PSA failure with value of 0.2 on 06/2023, 0.7 09/2023 PSMA PET-CT 11/09/2023, bone metastases right clavicle, right 3rd rib, right anterior pelvic near right inguinal ring Orgovyx plus enzalutamide initiated 12/2023, achieved undetectable PSA then progression 10/2024, PSA 04/11/2025 up to 1.4 PSMA PET 04/24/2025, [facility] read, soft tissue in pelvis with faint mild tracer uptake concerning formetastatic disease 2 cm, SUV 7. Right pelvis 1.2 cm SUV 6.5. 1 cm left external iliac lymph node with faint tracer uptake SUV 3.0. 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 Orgovyx 12/2023 2. 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) 05/07/2025 Initial Diagnosis Prostate cancer (HCC) 05/09/2025 - Cancer Staged Staging form: Prostate, AJCC 8th Edition - Pathologic stage from 05/09/2025: Stage IIIC (pT3b, pN0, cM0, PSA: 6, Grade Group: 5) Active Treatment Plans for Mingo Huerta Oncology Chemotherapy Treatment: Relugolix PO 28 Day Cycles - Prostate Current day: Day 1, Cycle 5 (Planned for 09/19/2025) Following planned day: Day 1, Cycle 6 (Planned for 10/17/2025) Oncology Treatment (3): [id number] - [facility] - - [id number] - Part 1D, 2D, and 2H - Dose Escalation and Expansion - [id number] Q6W / Apalutamide Current day: Day 1, Cycle 3 (Planned for 09/13/2025) Following planned day: Day 1, Cycle 4 (Planned for 10/03/2025) Interval History: Since the last visit he has been doing well without any complaints. He has not noticed any symptomsincluding no fevers, chills, chest pain, shortness of breath, abdominal pain, dysuria, hematuria, constipation, or diarrhea. We reviewed his labs that showed further PSA decrease and CT scan that showed evidence of enlargement of some of the soft tissue involving the posterior bladder. REVIEW OF SYSTEMS As noted in Interval History, otherwise negative. MEDICAL/SURGICAL/SOCIAL/FAMILY HISTORIES Past Medical History: Diagnosis Date Ortiz esophagus Cancer (HCC) Cataract Colon polyp Dyslipidemia Emphysema of lung GERD (gastroesophageal reflux disease) Hypertension Hypertension Prostate cancer (HCC) Sleep apnea Past Surgical History: Procedure Laterality Date COLONOSCOPY HAND SURGERY HAND SURGERY trigger finger KNEE ARTHROSCOPY PROSTATE SURGERY PROSTATECTOMY UPPER GASTROINTESTINAL ENDOSCOPY Social History Socioeconomic History Marital status: Spouse name: Not on file Number of children: Not on file Years of education: Not on file Highest education level: Not on file Occupational History Not on file Tobacco Use Smoking status: Former Current packs/day: 0.00 Types: Cigarettes Quit date: 10/04/2004 Years since quittin.9 Smokeless tobacco: Never Vaping Use Vaping status: Never Used Substance and Sexual Activity Alcohol use: Yes Drug use: Yes Types: Alcohol Comment: socially Sexual activity: Not on file Other Topics Concern Not on file Social History Narrative Agrees to blood/blood products: Y Social Drivers of Health Financial Resource Strain: Not on file Food Insecurity: Not on file Transportation Needs: Not on file Physical Activity: Not on file Stress: Not on file Social Connections: Not on file Intimate Partner Violence: Not on file Housing Stability: Not on file Family History Problem Relation Age of Onset Valvular heart disease Mother Valvular Heart Disease; Leukemia Mother COPD Father COPD; Cause of : COPD Emphysema Father Cancer Brother MEDICATIONS Current Outpatient Medications: atorvastatin (LIPITOR) 40 mg tablet, Take 1 tablet (40 mg total) by mouth daily, Disp: 30 tablet, Rfl: 11 hydroCHLOROthiazide (HYDRODIURIL) 25 mg tablet, , Disp: , Rfl: IN[facility] apalutamide (/[id number]) 60 mg tablet, Take 4 tablets (240 mg total) by mouth daily Take at about the same time each day with water. May be taken with or without food. Avoid grapefruit products, [place]arton oranges, pomelos, and herbal supplements., Disp: , Rfl: losartan (COZAAR) 100 mg tablet, losartan 100 mg tablet, Disp: , Rfl: pantoprazole DR (PROTONIX) 40 mg EC tablet, Take 1 tablet (40 mg total) by mouth 2 (two) times a day before breakfast and dinner, Disp: 180 tablet, Rfl: 3 relugolix (ORGOVYX) 120 mg tablet, Take 1 tablet (120 mg total) by mouth daily Take at same time each day. Swallow tablets whole; do not crush or chew. Dispense in original container., Disp: 30 tablet, Rfl: 5 PHYSICAL EXAM Blood pressure 145/86, pulse 68, temperature 36.1 ??C (97 ??F), temperature source Temporal, resp. rate 18, weight 110.7 kg (244 lb), SpO2 97%. General appearance: no acute distress, sitting comfortably ENT: Moist mucous membranes, no thrush Lungs: Lungs clear to ascultation bilaterally, anterior and posterior. No wheezes appreciated. No crackles, or rales appreciated; no increased WOB Heart: regular rate, S1, S2 normal, no murmur appreciated Abdomen: soft, non-tender, non distended Extremities: extremities warm and well-perfused, 2+ radial pulse, no LE edema. Skin: warm and dry Lymph:No cervical lymphadenopathy Neurologic: A&O x3. CN II-XII normal Psych: Normal Mood and affect LABS Hematology Lab History Latest Ref Rng & Units 07/28/2025 22:59 08/01/2025 10:02 08/23/2025 09:51 09/13/2025 08:08 Labs - Hematology WBC 3.80 - 9.90 K/cumm 9.26 7.58 4.20 5.06 Total Hb, POC 13.0 - 17.5 g/dL 13.8 14.1 14.3 14.1 Hct 38.9 - 50.3 % 39.9 41.4 41.9 41.2 Plt 150 - 400 K/cumm 196 192 192 171 Neutrophil abs 1.50 - 6.50 K/cumm 5.92 5.12 2.38 2.55 Lymphocytes, abs 0.80 - 3.30 K/cumm 2.11 1.61 1.19 1.62 Chem/LFT Lab History Latest Ref Rng & Units 07/28/2025 22:59 08/01/2025 10:02 08/23/2025 09:57 09/13/2025 08:08 Labs-Chem/LFT Sodium 135 - 145 mmol/L 138 140 140 140 Creatinine 0.80 - 1.30 mg/dL 0.82 0.90 1.05 0.84 Bilirubin, total 0.1 - 1.2 mg/dL 0.7 0.7 0.3 0.3 AST 10 - 50 Units/L 30 21 25 33 ALT 7 - 55 Units/L 24 17 23 22 Alk phos 40 - 130 Units/L 74 80 88 86 CrCl- Actual Body Weight (Cockcroft-Gault) 132.8 121.1 104 131.8 Tumor Marker History Latest Ref Rng & Units 07/28/2025 22:59 08/01/2025 10:02 08/23/2025 09:57 09/13/2025 08:08 Tumor Markers PSA <=5.40 ng/mL 8.37 5.69 5.52 Trop T hs <=22 ng/L 11 IMAGES No results found. ASSESSMENT 1. Prostate cancer metastatic to bone (HCC) 2. 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 Subsequent relapse by PSA with likely pelvicnodal disease on his most recent imaging. Indeterminate bone lesions not much changed over the lastyear, suspicion for fibro-osseous dysplasia. 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 He is currently on clinical trial with JNJ (KLK2 bispecific) + apalutamide and completed the dosing escalation and is tolerating it well. Interval CT scans have shown interval increase in the size of soft tissue along the posterior bladder neck and peritoneal reflections. There is also an interval increase in the degree of omental nodularity compatible with peritoneal carcinomatosis. We reviewed the PSA that showed further decrease in his PSA. We discussed that he appears to have continued clinical benefit from the treatment and we will plan to continue with the trial at this time. C3D1 JNJ + Apalutamide on clinical trial today. He will also continue on Relugolix 120 mg daily. Bone health-given indeterminate bone lesions on imaging would not yet [place] bone modifying agents in the setting of castrate resistant disease. Continue vitamin-D and weight-bearing exercise. Consider baseline DEXA We will see back in 3. He agrees with the plan. COUNSELING: The patient was counseled extensively. We discussed the results of all recent diagnostic tests and what these results mean. We discussed the prognosis of the disease. We discussed the risks and benefits of the treatment plan at length. The patient was given instructions for treatment and the follow up appointments were reviewed. We reviewed all the medications and educated the patientabout their appropriate uses. Marcelo Farooq MD PGY-5 Hematology and Oncology Fellow [facility] Cosigned by Sid Rayo MD at 09/13/2025 2:28 PM LAP REGULATOR REGULATOR REGULATOR Associated attestation - Sid Rayo MD - 09/13/2025 2:28 PM LAP REGULATOR Images from the original note were not included. I have seen and examined the patient on 09/13/25 in conjunction with our oncology fellow. I agree with their assessment and plan as outlined below. 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 Tolerating therapy well. Imaging studies stable per RECIST, PSA improved. Continue protocol therapy. 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) documented in this encounter Orders Appointment Requests Count Last Ordered Date Fi rst Ordered Date ONCBCN CLINIC APPOINTMENT REQUEST 1 025 documented in this encounter Care Teams Heavy Equipment Field Mechanic Relationship Specialty Start Date End Date Mingo Handley MD PCP - General Radiology 05/20/23 Kurtis Plaza MD [address] [place] [address] [id number] Consulting Physician Urology 04/17/25 Sid Rayo MD [address] [place] [address] [id number] Medical Oncology 04/17/25 Sushil Ferguson MD [address] [place] [id number] Radiation Oncology 05/07/25 documented as of this encounter
--- OUTSIDE RECORDS SUMMARY | 2025-09-13 10:30 | XMS_ITS | Encounter Summary ---
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) Sid Rayo MD [address] [place] [address] Phone: tel: fax: [facility] - Infusion [address] [place] [id number] Referral ID Status Reason Start Date Expiration Date V isits Requested Visits Authorized [id number] Authorized 07/19/2025 10/18/2025 1 20 Encounter Details Date Type Department Care Team (Late st Contact Info) Description 09/13/2025 10:30 AM AUDITOR/QUALITY Infusion [facility] [address] [facility] [address] [place] [address] 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); Prostate cancer metastatic to bone (HCC) Social History Tobacco Use Types Packs/Day [...] on file Legal Sex Male 12:00 AM AUDITOR/QUALITY Gender Identity Not on file Sexual Orientation Not on file documented as of this encounter Last Filed Vital Signs Vital Sign Reading Time Taken Comments Blood Pressure 107/70 09/13/2025 4:35 PM AUDITOR/QUALITY Pulse - - Temperature - - Respiratory Rate - - Oxygen Saturation - - Inhaled Oxygen Concentration - - Weight - - Height - - Body Mass Index - - documented in this encounter Functional Status documented as of this encounter Nursing Notes * Zuleika Weiss RN - 09/13/2025 10:30 AM CST Oncology Nursing Note [facility] Mingo Huerta is a 69 y.o. male who presents for treatment cycle 3, day 1 of Research [id number]. Pre-treatment Nursing Assessment Nursing Assessment LOC: Alert, Awake Constitutional: (denies all.) Any falls since your last visit?: No Orientation: Oriented x4 Behavior: Calm Speech: Clear Language: No aphasia Hearing: At Baseline (i dont hear very good, I have hearing aids) Vision: At baseline Other neuro symptoms: (denies trouble thinking or confusion.) Peripheral Neuropathy: No Oral Mucosa Grade: Normal (0) Pt states has potential to be ?: N/A Shortness of Breath?: Yes (if I go up a bunch of stairs nothing new MD aware per pt) Lungs auscultated PRN: No Pt is on oxygen?: No Respiratory Effort Characteristics: Dyspnea exertion (as above. Resolves with rest.) Cough: Productive (sinus drippage ) Sputum Amount: Small Sputum Color: Clear Appetite: Good (drinking water and fluids. Verbalizes understanding to drink plenty of water and fluids.) What diet do you follow at home?: regular Nausea/Vomiting: No Abdomen: Soft Diarrhea: No Constipation: No Last BM Date: 09/13/25 Skin Condition/Temp: Warm, Dry, No swelling Swelling: No Additional Notes: Feels Fine Accompanied by . Saw MD today. Denies previous reaction to regimen. Denies bleeding. Denies fever, chills, sore throat, dysuria. Has a little bit of runny nose but is not unusual Has occasional sinus a little bit after asked about cough. Denies skin rash. ICE Assessment completed. ICE Handwriting assessment completed and scanned to Media tab in [employer]. Encounter Vitals BP: 145/86 (09/13/2025 8:15 AM) Pulse: 68 (09/13/2025 8:15 AM) Resp: 18 (09/13/2025 8:15 AM) Temp: 36.1 ??C (97 ??F) (09/13/2025 8:15 AM) Temp src: Temporal (09/13/2025 8:15 AM) SpO2: 97 % (09/13/2025 8:15 AM) Weight: 110.7 kg (244 lb) (09/13/2025 8:15 AM) Pain Score: 0 - No pain Treatment Patient: met treatment parameters Pre blood return: Brisk Mingo Huerta tolerated treatment well. No reaction noted. Tolerated 2 hour observation well. No reaction noted. Denies chest pain, SOB, dizziness, itching at end of observation. BP checked in both arms. [place] ready for release. Did not want to stay longer to recheck BP. Patient was frequently observed and monitored throughout the administration of their treatment. Additional Notes: See Nursing Addendum. Uses MyChart and to return as per appts. NSL started in right AC for blood draws as peripheral IV in left arm. Received Apalutamide from Study Pharmacist today and later took as directed after checking with TRRT RN. (Pt told not to take oral pill the day of treatment) Reviewed dosing instructions and taking as outlined in orders. Pt usually takes Apalutamide daily at 6:30 in the morning. Post blood return: Brisk IV access post infusion: NS Patient Education Treatment Education: Information/teaching given to patient including process and procedure related to today's visit Response: Verbalizes understanding Discharge Plan Discharge instructions given to patient. Future appointments given and reviewed with treatment plan. 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)- Primary Prostate cancer metastatic to bone (HCC) documented in this encounter Administered Medications Inactive Administered Medications - up to 3 most recent administrations Medication Order MAR Action Action Date Dose Rate Site acetaminophen (TYLENOL) tablet 650 mg 650 mg, oral, Once, On Susan 09/13/25 at 1230, For 1 dose, Administer 1-2 hours prior to [id number] administration.Indications:Pro state cancer metastatic to bone (HCC),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 D5W only!! 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) New Bag 09/13/2025 1:49 PM AUDITOR/QUALITY 300 mg 200 mL/hr documented in this encounter Orders Medications Ordered That Ramakrishna ht Not Have Been Administered Count Last Ordered Date First Ordered Date INV-[facility] apalutamide (/[id number]) tablet 240 mg 1 09/13/2025 Nursing Count Last Ordered Date First Orde red Date ONCBCN NURSING COMMUNICATION [id number] 1 1 11/14/2024 ONCBCN NURSING COMMUNICATION [id number] 1 1 11/14/2024 ONCBCN NURSING COMMUNICATION 2 1 09/13/2025 ONCBCN PROVIDER COMMUNICATION 1 1 5 ONCBCN PROVIDER COMMUNICATION 2 1 5 ONCBCN PROVIDER COMMUNICATION 3 1 5 ONCBCN STUDY COMMUNICATION 1 1 09/13/2025 ONCBCN TREATMENT PARAMETERS 1 1 09/13/2025 ONCBCN VITAL SIGNS/EKG/PK 10 1 09/13/2025 Appointment Requests Count Last Ordered Date Fi rst Ordered Date ONCBCN MED STUDY 6HRS 1 09/13/2025 documented in this encounter Care Teams Grief Counselor Relationship Specialty Start Date End Date Mingo Handley MD PCP - General Radiology 05/20/23 Kurtis Plaza MD [address] [facility] [address] [place] [address] Consulting Physician Urology 04/17/25 Sid Rayo MD [address] [facility] [address] [place] [id number] Medical Oncology 04/17/25 Sushil Ferguson MD [address] [place] [id number] Radiation Oncology 05/07/25 documented as of this encounter
--- NOTE | 2025-09-13 18:17 | ECG_ITS ---
Test Date: 2025-09-13 18:23:32 Measurements Intervals Ruby Rate: 84 P: 50 MO: 173 QRS: 0 QRSD: 114 T: 26 QT: 374 QTc: 443 Interpretive Statements SINUS RHYTHM INCOMPLETE RIGHT BUNDLE BRANCH BLOCK NONSPECIFIC ST & T-WAVE ABNORMALITY- ANTERIOR LEADS BASELINE ARTIFACT- I, II, III, AVR, AVL ,AVF, V1-V6 BORDERLINE ECG No previous ECG available for comparison Electronically Signed On 09-13-2025 20:34:36 INJECTION PRESS OPERATOR by Piotr Harris D.O.
[2025-09-13 18:45] LABS: Hematocrit 44.4 % (42.0-52.0); Hemoglobin 14.9 g/dL (14.0-18.0); Immature Granulocyte Percent A 0.7 % (0-0.5); Lymphocytes Absolute Auto 0.31 K/mm3 (0.9-3.2); Mean Corpuscular HGB Conc 33.6 g/dl (32-36); Mean Corpuscular Hemoglobin 32.4 pg (26-34); Mean Corpuscular Volume 96.5 fl (80-100); Nucleated Red Blood Cells Absolute Auto 0.000 K/mm3 (0.0-0.012); Nucleated Red Blood Cells Perc 0.0 % (0.0-0.2); Platelet Count Result 155 k/mm3 (150-375); Red Blood Count 4.60 M/mm3 (4.6-6.20); White Blood Count 6.1 K/mm3 (4.5-10.0)
[2025-09-13 18:56] LABS: INR 1.1; Prothrombin Time 13.9 Seconds (11.1-14.7)
[2025-09-13 18:57] LABS: Partial Thromboplastin Time 26.0 Seconds (22.3-36.8)
[2025-09-13 18:58] LABS: Alanine Aminotransferase 29 U/L (6-50); Albumin Level 4.7 g/dL (3.5-5.1); Alkaline Phosphatase 85 U/L (38-126); Anion Gap 9 mmol/L (4-12); Aspartate Amino Transferase 44 U/L (17-59); Bilirubin,Total 0.6 mg/dL (0.2-1.3); Blood Urea Nitrogen 19 mg/dL (9-20); Calcium 9.2 mg/dL (8.4-10.2); Carbon Dioxide 25 mmol/L (22-30); Chloride 103 mmol/L (98-107); Estimated CRCL calculation 91 ml/min; Estimated Glomerular Filt Rate > 60; Glucose 81 mg/dL (65-110); Lipase 227 U/L (23-300); Potassium 3.6 mmol/L (3.4-5.0); Sodium 137 mmol/L (137-145); Total Protein 7.6 g/dL (6.3-8.2)
[2025-09-13 19:10] LABS: Troponin I < 0.012 ng/mL (0.000-0.034)
--- NOTE | 2025-09-13 19:13 | ED_ITS ---
HPI - Recheck/Abnormal Lab/Rx General Chief Complaint: Recheck/Abnormal Lab/Rx Stated Complaint: low BP Time Seen by Provider: 09/13/25 19:01 Source: patient and family Mode of arrival: wheelchair Limitations: no limitations History of Present Illness HPI narrative: This is a 69-year-old male with history of prostate cancer, hypertension who presents to the ED for transient altered mental status. Patient is in a clinical trial for chemotherapy for prostate cancer at [facility]. He states they had an effusion today but did not get a steroid like he has previously. After the infusion, states that they went to go get dinner like they normally do but he was not feeling well so they decided to go home. While EN route to home, patient became unresponsive and his eyes rolled up high in his head. He had no seizure activity. He was unresponsive for about a few minutes. He has been feeling chilled and had headaches since then. Has not been feeling sick recently otherwise. Denies chest pain, shortness of breath, abdominal pain, nausea, vomiting. Related Data Home Medications ?Medication ?Instructions ?Recorded ?Confirmed ?Last Taken ?Type enzalutamide 80 mg tablet (Xtandi) 80 mg PO DAILY 03/2706/01/25 Unknown History relugolix 120 mg tablet 120 mg PO DAILY 05/09/24 Unknown History Allergies Allergy/AdvReac Type Severity Reaction Status Date / Time No Known Allergies Allergy Verified 09/13/25 18:44 Review of Systems 2 Review of Systems: Gen.: Denies fevers or chills Eyes: Denies eye pain or visual change ENT: Denies congestion Respiratory: Denies shortness of breath or cough CV: Denies chest pain or palpitations GI: Denies abdominal pain nausea, emesis or diarrhea denies burning, urgency, frequency or hematuria Musculoskeletal: Denies back pain or muscle pain Neuro: Denies numbness, tingling, weakness or focal weakness Skin: Denies rash Except as documented, all other systems reviewed and negative [facility] Past Medical History Medical History Ortiz's esophagus with esophagitis Erosive esophagitis Coffee ground emesis Blister of ear canal Encounter for vitamin deficiency screening On assisted drug therapy Enlarged prostate without lower urinary tract symptoms (luts) Trigger finger of left hand History of colon polyps Special screening for other malignant neoplasms ETOH abuse 4-5 drinks every other day Hypertension Hyperlipidemia Surgical History Surgical History S/P prostatectomy S/P trigger finger release H/O colonoscopy with polypectomy Hx of cataract removal with insertion of prosthetic lens September 2020 and October 2020 Family History Family History Mother Leukemia Sibling Patient's brother is in good health only 1 brother is healthy Sepsis 1 brother from sepsis Bile duct cancer 1 brother from bile duct cancer. Father Family history of emphysema Patient's father is Social History Social History Social History: quit smoking 20 years ago, 1-1.5 PPd x 20 years prior The patient lives with his who is the durable power health care attorney for healthcare. The patient has 1 biological child and 3 step children. 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 The patient used to drink couple drinks a day but has cut that down significantly. Code status full code Smoking packs per day: 1 Smoking cigarettes per day: 20.0 Years smoked: 25 Smoking pack-years: 25.00 Smoking status: Former smoker Tobacco type: cigarettes Smoking end date: 10/04/03 Alcohol intake: current Drinks per week: 10 Substance use: never Substance use type: does not use Lack of Transportation: No Lack of Food: Never True Current Housing: I Have Housing Concerned About Future Housing: No Difficulty Paying Gas/Electric Bills: No Difficulty Paying for Meds: No Currently Unemployed: No Education: Trade/Vocational Certificate Difficulty w/ Childcare or Family Care: No Living arrangements: with family Occupation/Education: occupation Additional occupation/education comments: [employer] Spiritual care concerns: No Exam 2 Narrative: APPEARANCE: Mild distress, nontoxic, resting in bed EYES: EOMI HEENT: Normocephalic, atraumatic, OMM RESPIRATORY: No respiratory distress Clear to auscultation bilaterally with no rhonchi wheezing or rales. CARDIOVASCULAR: Regular rate and rhythm without murmurs rubs or gallops. ABDOMINAL: Soft, nontender, nondistended, no rebound or guarding MUSCULOSKELETAl: Moves all extremities. No clubbing, cyanosis or edema. NEURO: Awake and alert. Following commands, speech normal, no focal deficits SKIN:: Warm, dry. No rashes lesions or abrasions PSYCHIATRIC: Normal affect/mood, Course Vital Signs Vital signs: Vital Signs Temperature 98.0 F 09/13/25 18:19 Pulse Rate 54 L 09/13/25 18:19 Respiratory Rate 18 09/13/25 18:19 Blood Pressure 153/91 H 09/13/25 18:19 Pulse Oximetry 91 09/13/25 18:19 Oxygen Delivery Room Air 09/13/25 18:19 Temperature 98.0 F 09/14/25 06:06 Pulse Rate 83 09/14/25 06:06 Respiratory Rate 22 H 09/14/25 06:06 Blood Pressure 104/66 09/14/25 06:06 Pulse Oximetry 100 09/14/25 06:06 Oxygen Delivery Room Air 09/13/25 18:19 MDM MDM Narrative Medical decision making narrative: 69-year-old male Presenting for transient altered mental status. On initial evaluation patient was in mild distress afebrile, hemodynamic stable. Differentials include but are not limited to: CVA, TIA, ICH, meningitis, UTI, cancer, drug intoxication, hypoglycemia, electrolyte abnormality Notable exam findings: Heart and lungs clear. Abdomen soft and nontender. I personally reviewed the patient's lab result. Notable lab findings: CBC and CMP without significant abnormalities. Troponin within normal limits. The PT INR normal. I personally reviewed the patient's images and interpret as follows: Chest x- ray: Normal cardiac silhouette, no consolidations, no pleural effusions, no pulmonary vascular congestion. CT head as interpreted by radiology showed no acute abnormalities I personally reviewed the patient's EKGs: Normal sinus rhythm rate of 84, normal axis, incomplete right bundle-branch block, nonspecific ST and T-wave changes. Repeat EKG: Normal sinus rhythm rate of 95, normal axis, incomplete right bundle-branch block common nonspecific ST and T-wave changes, no significant change from earlier Spoke with Dr. Perez, oncology at [facility], recommends admission for observation and possible further neurology evaluation including EEG. However, neurology not available at this time at this facility. [place] with Dr. Saunders, hospitalist at [facility] who will accept the patient. Patient transferred in a stable condition. Differential Diagnosis Differential Diagnosis: CVA, TIA, ICH, meningitis, UTI, cancer, drug intoxication, hypoglycemia, electrolyte abnormality Lab Data MDM Lab Attestation statement: I personally reviewed the patient's lab results. 09/13/25 18:37 09/13/25 18:37 Labs: Lab Results 09/13/25 09/13/25 09/14/25 Range/Units 18:37 21:04 00:30 WBC 6.1 (4.5-10.0) K/mm3 RBC 4.60 (4.6-6.20) M/mm3 Hgb 14.9 (14.0-18.0) g/dL Hct 44.4 (42.0-52.0) % MCV 96.5 (80-100) fl MCH 32.4 (26-34) pg MCHC 33.6 (32-36) g/dl RDW 12.3 (11.5-14.5) % Plt Count 155 (150-375) k/mm3 MPV 10.5 H (7.4-10.4) fl Immature Gran % (Auto) 0.7 H (0-0.5) % Neut % (Auto) 93.4 H (45.5-73.1) % Lymph % (Auto) 5.0 L (18.3-44.2) % Catron % (Auto) 0.5 L (2.6-8.5) % Eos % (Auto) 0.2 (0-4.4) % Baso % (Auto) 0.2 (0.2-1.2) % Lymph # (Auto) 0.31 L (0.9-3.2) K/mm3 Catron # (Auto) 0.0 L (0.1-0.6) K/mm3 Eos # (Auto) 0.0 (0-0.3) K/mm3 Baso # (Auto) 0.0 (0.0-0.1) K/mm3 Abs Immat Gran (auto) 0.04 H (0.00-0.031) K/mm3 Absolute Neuts (auto) 5.7 (1.3-6.7) K/mm3 Absolute Nucleated RBC 0.000 (0.0-0.012) K/mm3 Nucleated RBC % 0.0 (0.0-0.2) % PT 13.9 (11.1-14.7) Seconds INR 1.1 APTT 26.0 (22.3-36.8) Seconds Sodium 137 (137-145) mmol/L Potassium 3.6 (3.4-5.0) mmol/L Chloride 103 (98-107) mmol/L Carbon Dioxide 25 (22-30) mmol/L Anion Gap 9 (4-12) mmol/L BUN 19 D (9-20) mg/dL Creatinine 0.87 (0.7-1.3) mg/dL Estim Creat Clear Calc 91 ml/min Estimated GFR > 60 (59 - ) Glucose 81 (65-110) mg/dL Calcium 9.2 (8.4-10.2) mg/dL Total Bilirubin 0.6 (0.2-1.3) mg/dL AST 44 (17-59) U/L ALT 29 (6-50) U/L Alkaline Phosphatase 85 (38-126) U/L Troponin I < 0.012 < 0.012 < 0.012 (0.000-0.034) ng/mL Total Protein 7.6 (6.3-8.2) g/dL Albumin 4.7 (3.5-5.1) g/dL Lipase 227 (23-300) U/L Imaging Data Attestation: I personally reviewed and interpreted this imaging study as follows: Radiologist's impression: ITS Impressions Chest X-Ray 09/13/25 18:54 IMPRESSION: 1. No acute pulmonary findings. Head CT 09/13/25 19:49 IMPRESSION: 1. Limited noncontrast CT head shows no acute intracranial lesions. Discharge Plan Discharge Clinical Impression: Acute alteration in mental status, History of prostate cancer Patient Disposition: Acute Care Hospital Condition: Stable Patient Language: Nauruan Prescriptions: No Action relugolix 120 mg tablet 120 mg PO DAILY Xtandi 80 mg tablet 80 mg PO DAILY losartan 100 mg tablet 100 mg PO DAILY Qty: 90 3RF hydrochlorothiazide 25 mg tablet 25 mg PO DAILY Qty: 90 3RF atorvastatin 20 mg tablet 20 mg PO DAILY Qty: 90 3RF pantoprazole 40 mg tablet,delayed release (DR/EC) 40 mg PO DAILY 30 Days Qty: 30 12RF Follow-up/Referrals: Mingo Handley APRN [Primary Care Provider, Internal Medicine]
[2025-09-13] MEDS: SODIUM CHLORIDE 0.9% IV 1,000 ML 999 ML IV CONT (19:29)
--- OUTSIDE RECORDS SUMMARY | 2025-09-13 19:35 | XMS_ITS | Clinical Summary ---
Author Organization [employer] [facility] lin Address [address] [place] [address] Care Team Providers Care Speech Pathology Supervisor Name Role Phone Unavailable Primary Care Provider Unavailabl e Social History Tobacco Use Types Packs/Day Years Used Date Smoking Tobacco: Never Assessed Sex and Gender Information Value Date Recorded Sex Assigned at Not on file Legal Sex Male 5:48 PM EDT Gender Identity Not on file Sexual Orientation Not on file Plan of Treatment Not on file Medical Devices Not on file Insurance [employer]
--- OUTSIDE RECORDS SUMMARY | 2025-09-13 19:35 | XMS_ITS | Data Portability ---
Author Organization [facility], Main Office Address [address] [facility] [address] [place] [address] Care Team Providers Care Db2 Systems Programmer Name Role Phone DIANE MEJIAS Primary Care Provider Assessment No assessment recorded. Plan of Treatment Reminders Order Date Submit Date Provider Last Modified By Organization Details Last Modified Time Details Appointments None record ed. Lab None record ed. Referral None record ed. Procedures None record ed. Surgeries None record ed. Imaging None record ed. Medication Orders None record ed. Patient TargetsNo targets recorded. Patient Instructions Encounter Date Encounter Id Patient Instructions Last Modified By Organization Details Last Modified Time 10/31/2018 [id number] hemorrhoids: car e instructions Not available 10/31/2018 17:56:02 Patient counsele d to F/U immediately if temp. greater than 100.4, if is unable to urinate, increased rectal pain or any other concerns. Not available 10/31/2018 17:54:49 He will follow u p in 1 - 3 weeks and I will treat his left lateral internal hemorrhoid (and possibly also his right anterior). I discussed with him he will probably be a total of 3 - 4 treatments in this series. On today's visit I spent a total of 35 minutes [id number] with the patient and over 50% of this time was spent discussing treatment options, risks/benefits of each option and alternatives. Not available 10/31/2018 17:55:48 11/16/2018 [id number] hemorrhoids: car e instructions Not available 11/16/2018 15:53:17 Patient counsele d to F/U immediately if temp. greater than 100.4, if is unable to urinate, increased rectal pain or any other concerns. Not available 11/16/2018 10:26:28 He will follow u p in about 8 weeks and I will retreat his RP and LL and possibly also his RA. That will be his last treatment. Not available 11/16/2018 10:52:02 01/18/2019 [id number] hemorrhoids: car e instructions Not available 01/18/2019 09:47:56 Patient counsele d to F/U immediately if temp. greater than 100.4, if is unable to urinate, increased rectal pain or any other concerns. Not available 01/18/2019 09:45:42 He will follow u p with me only as needed. I discussed with him that if he feels he needs another treatment the soonest I would see him would be in about 2 1/2 months. Not available 01/18/2019 09:46:20 Reason for Referral None Reported. Problems Name Problem SNOMED Code Status Onset Date Resolution Date Notes Provider Name and Address Organization Details Recorded Time External hemorrhoids 96144042 Active 2011 Virginia Ibrahim MD [address] [facility], [place], [address] , [facility] 9 12:56:43 Pile easily reducible 305773611 Active 2011 Tx #1: 1.2 x 9 RP Tx #2: 1.2 x 8 LL Tx #3: 1.1 x 5 RA Tx #4: 1.2 x 6 RP Tx #5: 1.2 x 5 LL Tx #6: 9 1.2 x 9 RP Tx #7: 9 1.2 x 8 LL and 1.2 x 3 RA Tx #8: 9 1.2 x 5 RP and 1.2 x 5 LL Virginia Ibrahim MD [address] [facility], [place], [address] [place] [address] [facility] 9 09:34:36 Essential hypertension 17424628 Active 2018 [place] [address] [place] [address],[address], [place], [address] , [facility] [place] 9 13:35:05 Problem Notes None recorded. Procedures Surgical History Date Name Laterality Status Provider Name and Address Organization Details Recorded Time 9 IRC completed Virginia Ibrahim MD [address] [place] [address],[address], [place], [address] [place] [address], [facility] [place] 01/18/2019 09:44:16 9 IRC completed Virginia Ibrahim MD [address] [place] [address],[address], [place], [address], [facility] 11/16/2018 13:28:29 9 IRC completed Virginia Ibrahim MD [address] [place] [address],[address], [place], [address], [facility] [place] 10/31/2018 17:52:34 7 Colonoscopy completed Jodie Zaman [facility]orrh[facility] 10/31/2018 12:50:27 Imaging Results None recorded. Procedure Notes None recorded. Medical Equipment None Reported. Allergies No known drug allergies Medications Name Sig Start Date Stop Date Status Note LastModified by Organization Details LastModified Time atorvasta tin 10 mg tablet active Not Available Not Available Not Available ranitidin e 300 mg tablet 10/31 completed Not Available Not Available Not Available ondansetr on HCl 8 mg tablet 10/31 completed Not Available Not Available Not Available ketorolac 10 mg tablet 10/31 completed Not Available Not Available Not Available hydrocodo ne 7.5 mg-acetam inophen 325 mg tablet 10/31 completed Not Available Not Available Not Available pravastat in 20 mg tablet 10/31 completed Not Available Not Available Not Available mometason e 0.1 % topical ointment active Not Available Not Available Not Available losartan 100 mg tablet active Not Available Not Available Not Available amoxicill in 875 mg-potass ium clavulana te 125 mg tablet 10/31 completed Not Available Not Available Not Available amoxicill in 500 mg-potass ium clavulana te 125 mg tablet 10/31 completed Not Available Not Available Not Available Adult Aspirin Regimen 81 mg tablet,de layed release Take 1 tablet every day by oral route. active 10/31/18: He takes only for preventio n and denies taking any other aspirin products. Not Available Not Available Not Available Vitals Date Recorded Body height Body mass index (BMI) Body weight Respiratory rate Body temperature Heart rate Systolic And Diastolic Provider Name and Address Organization Details Last Updated DateTime 9 180.34 cm 36 kg/m2 260269. 83 g 12 /min 98.2 [degF] 67 /min 155/101 mm[Hg] [facility] 9 12:55:10 Date Recorded Body height Provider Name an d Address Organization Details Last Updated DateTime 11/16/2018 180.34 cm [facility] 11/16/2018 10:20:37 Date Recorded Body height Provider Name an d Address Organization Details Last Updated DateTime 01/18/2019 180.34 cm [place] LuRyan [facility] [place] 01/18/2019 09:04:01 Social History Question Answer Notes LastModified by Organizat ion Details LastModified Time Tobacco Smoking Status Former Smoker Quit 2004 Not Available [facility] 08/06/2020 03:38:34 Tobacco Amount/Day 1 Pack Information not available 10/31/2018 Alcohol Use Yes Information n ot available 10/31/2018 Alcohol Amount Moderate Information not available 10/31/2018 Caffeine Use Yes Information not available 10/31/2018 Caffeine Type Coffee Information not available 10/31/2018 Caffeine Amount Daily Information not available 10/31/2018 Illicit Drug Use No Information not available 10/31/2018 Type Of Tobacco Cigarettes Information not available 10/31/2018 What Was The Date Of Your Most Recent Tobacco Screening? 01/18/2019 [id number] Information not available 08/06/2020 How Many Years Have You Smoked Tobacco? 30 [id number] Information not available 08/06/2020 Sex: Unknown Functional Status Question Answer Note LastModified by Organizat ion Details LastModified Time What is your occupation? [employer] Information not available 10/31/2018 Mental Status None recorded. Family History Relationship Description Onset Age of this Age Resolved Age Notes LastModified by Organization Details LastModified Time Mother Hypertensive disorder Not available 2018 12:49:25 Mother Blood coagulation disorder 80 Not available 2018 12:49:37 Father Hypertensive disorder Not available 2018 12:49:25 Brother Hypertensive disorder Not available 2018 12:49:25 Brother Hypertensive disorder Not available 2018 12:49:25 Medical History Condition Response Coronary Artery Disease N Other N Atrial Fibrillation N Kidney Stones N Hyperthyroidism N Hernia N Depression N COPD N Hypothyroidism N Glaucoma N Accidental Bowel Leakage N Headaches/Migraines N Deep Vein Thrombosis N Cardiac Dysrhythmia N Anxiety Disorder N MRSA/VRE Exposure N Diverticulosis N Cancer N Stroke N Head Trauma N Crohn's Disease N Genital Warts N Liver Disease/Hepatitis N HIV/AIDS N High Cholesterol Y Irritable Bowel Syndrome N Kidney Disease N Autoimmune Disease N Anemia N Celiac Disease N Arthritis/Gout N Anal/Rectal Trauma/Injury N Diabetes N Cataracts N Bleeding Disorder N Seizures/Epilepsy N Diverticulitis N Asthma N Reflux/GERD N Ulcerative Colitis N Sleep Apnea N Aneurysm N Heart Disease N Pulmonary Embolism N Hypertension Y Colon/Rectal Polyps N Past Encounters Encounter ID Performer Location Encounter Start Date Encounter Closed Date Diagnosis/Indication Diagnosis SNOMED-CT Code Diagnosis ICD10 Code Diagnosis IMO Codes Diagnosis Note [id number] Virginia Ibrahim MD Main Office [address] [facility] [address] [place] [address] 10/31/2018 12:47:39 10/31/2018 13:28:27 Pile easily reducible 784689069 K64.1 Stage 2 - 3 internal hemorrhoid s: He has done well with infrared coagulatio n in the past and I think he would benefit now. I reviewed full informed consent with him including risks/bene fits and alternativ es. He wanted to proceed with treatment. His 6th overall (1st in this series) treatment was done today on his RP internal hemorrhoid . I advised that he go off of his baby aspirin until 3 weeks after his last treatment to minimize the (already very low) risk of bleeding from the treatment. External hemorrhoids 239 37688 K64.4 These will improve with IRC. He understand s the only way to directly treat external hemorrhoid s would be with surgery and he does not wish to pursue this and his hemorrhoid s are not bad enough to require surgery. He of course needs to be eating a high fiber diet and drink plenty of water to maintain soft daily BM's. [id number] Virginia Ibrahim MD Main Office [address] [facility] [address] [place] [address] 11/16/2018 10:19:31 11/16/2018 10:54:11 Pile easily reducible 205831570 K64.1 Stage 2 - 3 internal hemorrhoid s: He is doing well with infrared coagulatio n treatment. His 7th overall (2nd in this series) treatment was done today on his LL and RA. External hemorrhoids 239 57672 K64.4 Improving with IRC. He understand s the skin tags will not go away but will hopefully reduce in size and no be as bothersome . I advised that he make sure the fiber he is taking is psyllium and if it is, he should probably slowly increase his dose to try to bulk his BM's somewhat so it is easier to get clean. I also discussed with him his magnesium could be contributi ng to the loose BM's. Essential hypertension 22360624 I10 I discussed with him that the magnesium could possibly lower his BP somewhat but it is doubtful that it would lower it enough to be able to go off of his losartan. I advised that he needs to talk to his PCP before going off of it which he said he would have done anyway. [id number] Virginia Ibrahim MD Main Office [address] [facility] [address] [place] [address] 01/18/2019 09:02:55 01/18/2019 09:32:33 Pile easily reducible 936843491 K64.1 Stage 2 - 3 internal hemorrhoid s: He has done well with infrared coagulatio n treatment. His 8th overall (3rd in this series) treatment was done today on his RP and LL. External hemorrhoids 239 67574 K64.4 Improved with IRC. He understand s the skin tags will not go away but will hopefully reduce in size and no be as bothersome . He is doing well with taking fiber and magnesium - his BM's are daily. Health Concerns Section Related Observation LastModified by Organization Detai ls LastModified Time None Recorded Concern Status LastModified by Organization Details LastModified Time None Recorded Advance Directives Directive None Recorded Payers Insurance Date Sequence Insurance Name Policy Number Policy Yañez Covered Member ID Yañez Member ID Guarantor Name 01/15/2019 1 [id number] Mingo Lissy Bravoey [id number] Mingo Huerta Notes Date Note Type Note Provider Name and Address Organization Details Recorded Time 10/31/2018 text/html ROS as noted in the HPI See previous visits. He states he has been doing great (he had no symptoms from his hemorrhoids) since his last treatment on 09/13/12. His symptoms did return about 6 months ago but they were very intermittent and not terribly bothersome. His symptoms have been worsening over the last month and he had a much more uncomfortable flare that started 1 week ago. He presents today for another evaluation and treatment if it would be helpful. Bleeding: He had more bleeding 6 months ago - this was bright red blood on the wipe with some BM's. Currently he is not having much bleeding. Pain: Not really Itching: He has had a lot of external irritation and itching. Discharge: It has been hard to get clean after BM's because of swelling and irritation. He has had some difficulty staying clean - he has to re-wipe shortly after a BM. He has never had drainage bad enough that he has to wear a pad. Prolapse: Not that he feels External swelling: He always has some external swelling and this is worsening. Discomfort: He has the external irritation/discomfo rt. He has internal pressure, a sense of being blocked when trying to have a BM and a sense of incomplete emptying after BM's. Previous Hemorrhoid Treatment: He has had the IRC treatments here. He has been using some OTC medications but they have not been helpful. Previous Lower GI Endoscopy: He is up to date on his colonoscopies. Bowel Habits: His BM's are always soft and daily. He tries to eat a high fiber diet and drink plenty of water. Virginia Ibrahim MD [address] [facility], [place], [address], [facility] [place] 10/31/2018 17:57:54 11/16/2018 text/html No problem with tx and he feels he is significantly better. He has less swelling and discomfort. It is much easier to get and stay clean. He has had only minimal bleeding that is consistent with bleeding from the treatment. He did go off of his baby aspirin. He typically has 2 - 3 BM's daily that are soft and sometimes too soft. He has recently started taking magnesium. He is hoping that this will lower his blood pressure so he will be able to get off of his losartan (he is still taking the losartan). This has made his BM's more loose and somewhat runny. He takes 2 fiber capsules daily (he thinks it is psyllium). He tries to eat a high fiber diet and drink plenty of water but admits he does not always do so. Virginia Ibrahim MD [address] [place] [address],[address], [place], [address], [facility] [place] 11/16/2018 15:53:20 01/18/2019 text/html He had no problem with the last treatment (he did have some minor discomfort for about 2 weeks after the treatment but it was not bad enough to take any ibuprofen or Aleve. It resolved and since then he has been doing great. He states I am at least 95% better. It is much easier to get and stay clean. He has only minimal swelling after BM's and no discomfort. He has had no bleeding. He had to decrease his magnesium down to 500 mg daily because it was causing diarrhea. His BM's are [place] soft [place] [address] [place] [address],[address], [place], [address], [facility] [place] 01/18/2019 09:47:58
--- NOTE | 2025-09-13 20:52 | PC.NURSE ---
This RN spoke with the [facility] transfer center and answered all questions.
--- NOTE | 2025-09-13 20:53 | ECG_ITS ---
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
--- OUTSIDE RECORDS SUMMARY | 2025-09-13 20:58 | XMS_ITS ---
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 Part 1D, 2D, and 2H - Dose Escalation and Expansion - [id number] / Apalutamide* Plan Start Date:07/19/2025 Plan Provider:Sid Rayo MD Linked Problems Prostate cancer metastatic t o bone (HCC)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) Treatment Medications Current Day (Day 1 , Cycle 3 - Planned for 09/13/2025) Next Day (Day 1, Cycle 4 - Planned for 10/03/2025) INV-[facility] (/[id number]) [id number] (pasritamig) IVPB in 100 mL (Dose Level 150 - 900 mg)[facility]V-[facility] (/[id number]) [id number] (pasritamig) IVPB in 50 mL (Dose Level 3.5 - 25 mg)[facility] apalutamide (/[id number]) [facility] dextrose 5% in water (D5W)[facility] [id number] (pasritamig) (/[id number]) [facility] apalutamide (/[id number] ) tablet 240 mgINV-[facility] dextrose 5% in water (D5W) flush IVPB 20 mLINV-[facility] [id number] (/[id number] ) 300 mg in dextrose 5% 100 mL IVPB [facility] apalutamide (/[id number] ) tablet 240 mg Relugolix PO 28 Day Cycles - Prostate* Plan Start Date:05/10/2025 Plan Provider:Sid Rayo MD Linked Problems Prostate cancer (HCC)Prostat e cancer metastatic to bone (HCC)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) Treatment Medications Current Day (Day 1 , Cycle 5 - Planned for 09/19/2025) Next Day (Day 1, Cycle 6 - Planned for 10/17/2025) relugolix (ORGOVYX) No medications scheduled. No medications scheduled. Past Treatment and Therapy Plans Oncology Treatment (2) Plan Name Start Date Discontinue Date Treatment Medications Discontinue Reason Plan Provider Cycles Enzalutamide PO 28 Day Cycles - Prostate 05/10/2025 07/31/2025 enzalutamide (XTANDI) Progression Delon mcginnis, Sid Sheriff MD 1 of 1 cycle started Lifetime Dose Tracking * Chemical Lifetime Dose Automatic Entry Manual Entr y DLP 1,838 mGycm 1,838 mGycm 0 mGycm
--- OUTSIDE RECORDS SUMMARY | 2025-09-13 20:58 | XMS_ITS | Encounter Summary ---
Author Organization [facility] Healthcare Address [address] [place] [address] Care Team Providers Care Hereditary Cancer Program Coordinator Name Role Phone Mingo Handley MD Primary Care Provider [phone] Kurtis Plaza MD Unavailable [phone] Sid Rayo MD Unavailable [phone] Sushil Ferguson MD Unavailable [phone] Encounter Details Date Type Department Care Team (Latest Contact Info) Description 09/13/2025 Documentation Oncology Reina ePrez MD PhD [address] [facility] [address] [place] [address] Social History Tobacco Use Types Packs/Day Years [...] on file 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 Gender Identity Not on file Sexual Orientation Not on file documented as of this encounter Functional Status documented as of this encounter Plan of Treatment Not on file documented as of this encounter Visit Diagnoses Not on filedocumented in this encounter Care Teams Hereditary Cancer Program Coordinator Relationship Specialty Start Date End Date Mingo Handley MD PCP - General Radiology 05/20/23 Kurtis Plaza MD [address] [address] Consulting Physician Urology 04/17/25 Sid Rayo MD [address] [address] Medical Oncology 04/17/25 Sushil Ferguson MD [address] [place] [address] Radiation Oncology 05/07/25 documented as of this encounter
--- OUTSIDE RECORDS SUMMARY | 2025-09-13 20:58 | XMS_ITS | Clinical Summary ---
Author Organization [facility] Address [facility] [place] [address] Care Team Providers Care Inspector Plating Name Role Phone Unavailable Primary Care Provider [...] Vaccines (1 of 2) 2006 COVID-19 Vaccine (1 - 2024-2 6 season) 2025 Influenza Adult (#1) 2025 RSV Immunization or 60+ Years (1 - 1-dose 75+ series) 2031 Hepatitis A Vaccines Aged Out No long er eligible based on patient's age to complete this topic Meningococcal B Vaccine Aged Out No l onger eligible based on patient's age to complete this topic Meningococcal Vaccine Aged Out No barbara julio c eligible based on patient's age to complete this topic RSV Immunizations Under 20 Months Aged Out No longer eligible based on patient's age to complete this topic
--- OUTSIDE RECORDS SUMMARY | 2025-09-13 20:58 | XMS_ITS | Encounter Summary ---
Author Organization [facility] Healthcare Address [address] [place] [address] Care Team Providers Care Regional Facilities Specialist Name Role Phone Mingo Handley MD Primary Care Provider [phone] Kurtis Plaza MD Unavailable [phone] Sid Rayo MD Unavailable [phone] Sushil Ferguson MD Unavailable [phone] Encounter Details Date Type Department Care Team (Late st Contact Info) Description 09/13/2025 Hospital Encounter [facility] ADMIT [address] [place], [place] [id number] Gladys Wick MD [address] [place] [address] Social History Tobacco Use Types Packs/Day Years [...] on file 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 Gender Identity Not on file Sexual Orientation Not on file documented as of this encounter Functional Status documented as of this encounter Plan of Treatment Not on file documented as of this encounter Visit Diagnoses Not on filedocumented in this encounter Care Teams Regional Facilities Specialist Relationship Specialty Start Date End Date Mingo Handley MD PCP - General Radiology 05/20/23 Kurtis Plaza MD [address] [place] [id number] Consulting Physician Urology 04/17/25 Sid Rayo MD [address] [place] [id number] Medical Oncology 04/17/25 Sushil Ferguson MD [address] [place] [address] Radiation Oncology 05/07/25 documented as of this encounter
--- OUTSIDE RECORDS SUMMARY | 2025-09-13 20:59 | XMS_ITS | Encounter Summary ---
Author Organization [facility] Address [address] [place] [address] Phone Care Team Providers Care Custodial Aide Name Role Phone Mingo Handley MD Primary Care Provider [phone] Kurtis Plaza MD Unavailable [phone] Sid Rayo MD Unavailable [phone] Sushil Ferguson MD Unavailable [phone] Encounter Details Date Type Department Care Team (Late st Contact Info) Description 09/13/2025 Telephone [facility] Medicine Oncology [address] [facility] [address] [place] [address] Lori Moreno Social History Tobacco Use Types Packs/Day Years [...] on file Legal Sex Male 12:00 AM [employer] Gender Identity Not on file Sexual Orientation Not on file documented as of this encounter Functional Status documented as of this encounter Miscellaneous Notes * Telephone Encounter - Lori Moreno - 09/13/2025 6:15 PM CST called the exchange stating the patient's BP dropped. She said that it was currently 106/55. She stated that he was very cold and shaking uncontrollably. She said that patient could not hear herwhen she spoke to him. He then lost consciousness, but his eyes and mouth were open. She was worried that he was having a stroke. They were in the car driving during this time, so she took him directly to the closest ER. Patient getting evaluated there. She wanted the team to know that they are normally told to hold his Apalutamide, but today the RN made the patient take it. She was worried that it caused this reaction. MD Team informed of call. [employer] documented in this encounter Plan of Treatment Not on file documented as of this encounter Visit Diagnoses Not on filedocumented in this encounter Care Teams Custodial Aide Relationship Specialty Start Date End Date Mingo Handley MD PCP - General Radiology 05/20/23 Kurtis Plaza MD [address] [place] [id number] Consulting Physician Urology 04/17/25 Sid Rayo MD [address] [place] [id number] Medical Oncology 04/17/25 Sushil Ferguson MD [address] [place] [address] Radiation Oncology 05/07/25 documented as of this encounter
--- OUTSIDE RECORDS SUMMARY | 2025-09-13 20:59 | XMS_ITS | Clinical Summary ---
Author Organization [facility] Address [address] [place] [address] Care Team Providers Care Donation Worker Name Role Phone Kory Handley MD Primary Care Provider [phone] Kurtis Plaza MD Unavailable [phone] Sid Rayo MD Unavailable [phone] Sushil Ferguson MD Unavailable [phone] Allergies No known active allergies Medications hydroCHLOROthia zide (HYDRODIURIL) 25 mg tablet 08/26/20 18 Active losartan (COZAAR) 100 mg tablet losartan 100 mg tablet 07/26/[address] (PROTONIX) 40 mg EC tablet Take 1 tablet (40 mg total) by mouth 2 (two) times a day before breakfast and dinner 180 tablet 3 11/09/19 25 Active atorvastatin (LIPITOR) 40 mg tablet Take 1 tablet (40 mg total) by mouth daily 30 tablet 11 07/17/20 25 Active [facility] apalutamide (/[id number]) 60 mg tablet Take 4 tablets (240 mg total) by mouth daily Take at about the same time each day with water. May be taken with or without food. Avoid grapefruit products, [place] oranges, pomelos, and herbal supplements. 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 Swallow tablets whole; do not crush or chew. Dispense in original container. 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 Swallow tablets whole; do not crush or chew. Dispense in original container. 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 Swallow tablets whole; do not crush or chew. Dispense in original container. 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); Prostate cancer metastatic to bone (HCC) 09/13/2025 9:30 AM THEATER SET PRODUCTION DESIGNER Office Visit [facility] Medicine Oncology [address] [facility] Floor 5 [place] [address] Sid Rayo MD Prostate cancer metastatic to bone (HCC); 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) 09/13/2025 8:30 AM THEATER SET PRODUCTION DESIGNER Lab [facility] Medicine Oncology Lab [address] [facility] Floor 5 [place] [address] Prostate cancer metastatic to bone (HCC); 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) 09/13/2025 8:00 AM THEATER SET PRODUCTION DESIGNER Lab [facility] - Lab Collection [address] [facility] [address] [place] [address] Prostate cancer metastatic to bone (HCC); 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) 09/13/2025 Hospital Encounter [facility] ADMIT [address] [place] [address] Gladys Wick MD 09/13/2025 Documentation Oncology Reina Perez MD PhD 09/13/2025 Telephone [facility] Medicine Oncology [facility] Floor 6 [place] [address] Lori Moreno 09/11/2025 12:40 PM THEATER SET PRODUCTION DESIGNER - 09/11/2025 11:59 PM THEATER SET PRODUCTION DESIGNER Hospital Encounter [facility] ([facility] [address] [place] [address] Prostate cancer metastatic to bone (HCC); 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) Discharge Disposition: Discharge to home or self care 09/11/2025 12:39 PM THEATER SET PRODUCTION DESIGNER - 09/11/2025 11:59 PM THEATER SET PRODUCTION DESIGNER Hospital Encounter [facility] ([facility]) [address] [place] [address] Arrived Discharge Disposition: Discharge to home or self care 09/11/2025 12:20 PM THEATER SET PRODUCTION DESIGNER - 09/11/2025 11:59 PM THEATER SET PRODUCTION DESIGNER Hospital Encounter [facility] ([facility]) [address] [place] [address] Prostate cancer metastatic to bone (HCC); 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) Discharge Disposition: Discharge to home or self care 08/24/2025 Orders Only [facility] [address] [place] [address] 5 [place] [address] Sid Rayo MD 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); Prostate cancer metastatic to bone (HCC) 08/24/2025 Orders Only [facility] [address] [place] [phone] Jay Jay Hendricks MD 08/23/2025 10:45 AM THEATER SET PRODUCTION DESIGNER Office Visit [facility] [address] [place] [phone] Sid Rayo MD 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); Prostate cancer metastatic to bone (HCC) 08/23/2025 10:00 AM THEATER SET PRODUCTION DESIGNER Lab [facility] - Lab Collection [address] [place] [address] 5 [place] [address] Prostate cancer metastatic to bone (HCC); 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) 08/22/2025 Orders Only [facility] [address] [place] [phone] Sid Rayo MD 08/22/2025 Orders Only [facility] [address] [place] [phone] Sid Rayo MD Prostate cancer (HCC) (Primary Dx); Prostate cancer metastatic to bone (HCC); 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) 08/22/2025 Orders Only [facility] [address] [place] [address] 5 [place] [address] Sid Rayo MD 08/22/2025 Orders Only [facility] [address] [place] [address] 5 [place] [address] Sid Rayo MD 08/22/2025 Orders Only [facility] [address] [place] [address] 5 [place] [address] Sid Rayo MD 08/22/2025 Orders Only [facility] Medicine Oncology [address] [place] [address] Floor 5 [place] [address] Sid Rayo MD 08/16/2025 Orders Only [facility] Medicine Oncology [address] [place] [address] Floor 5 [place] [address] Sid Rayo MD Prostate cancer (HCC) (Primary Dx); Prostate cancer metastatic to bone (HCC); 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) 08/16/2025 Orders Only [facility] Medicine Oncology [address] [place] [address] 5 [place] [address] Sid Rayo MD 08/16/2025 Orders Only [facility] Medicine Oncology [address] [place] [address] Floor 5 [place] [address] Sid Rayo MD 08/01/2025 12:00 PM CDT Infusion [facility] - Infusion [address] [place] [address] Floor 6 [place] [address] 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); Prostate cancer metastatic to bone (HCC) 08/01/2025 11:00 AM CDT Office Visit [facility] Medicine Oncology [address] [place] [address] Floor 5 [place] [address] Carlos Rome NP 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); Prostate cancer metastatic to bone (HCC) 08/01/2025 10:00 AM CDT Lab [facility] - Lab Collection [address] [place] [address] Floor 5 [place] [address] Prostate cancer metastatic to bone (HCC); 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) 08/01/2025 Orders Only [facility] Medicine Oncology [address] [place] [address] Floor 5 [place] [address] Sid Rayo MD 07/28/2025 7:26 PM CDT - 07/29/2025 12:03 AM CDT Emergency [facility] Emergency Department [address] [place] [phone] Chest pain, unspecified type (Primary Dx); Nausea; Accidental ingestion of substance, initial encounter Discharge Disposition: Discharge to home or self care 07/28/2025 Telephone [facility] Medicine Bone Marrow Transplant [address] [place] [address] 6 [place] [address] Beth Quinonez NP 07/26/2025 10:30 AM CDT Infusion [facility] - Infusion [address] [place] [address] 5 [place] [address] 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); Prostate cancer metastatic to bone (HCC) 07/26/2025 9:15 AM CDT Office Visit [facility] Medicine Oncology [address] [place] [phone] Sid Rayo MD Prostate cancer metastatic to bone (HCC); 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) 07/26/2025 8:15 AM CDT Lab [facility] - Lab Collection [address] [place] [address] Prostate cancer metastatic to bone (HCC); 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) 07/23/2025 Telephone [facility] Oncology [address] [place] [phone] Felicia Stewart RN 07/19/2025 10:00 AM CDT Infusion [facility] - Infusion [address] [place] [address] 5 [place] [address] 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); Prostate cancer metastatic to bone (HCC) 07/19/2025 8:45 AM CDT Office Visit [facility] Oncology [address] [place] [phone] Sid Rayo MD 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); Prostate cancer metastatic to bone (HCC) 07/19/2025 7:45 AM CDT Clinical Support [facility] - Lab Collection [address] [place] [address] 5 [place] [address] Prostate cancer metastatic to bone (HCC); 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) 07/17/2025 Orders Only [facility] Medicine Cardiology [address] [facility] 8th [place] [address] [place] [address] Sudhir Reynoso MD 07/10/2025 1:34 PM CDT - 07/10/2025 11:59 PM CDT Hospital Encounter [facility] - Cardiac Diagnostic Lab [address] [facility] [address] [place] [address] High risk medication use Discharge Disposition: Discharge to home or self care 07/10/2025 Orders Only [facility] Medicine Oncology [facility] Floor 5 [place] [address] Sid Rayo MD 07/06/2025 Orders Only [facility] Medicine Oncology [address] [place] [address] Floor 5 [place] [address] Sid Rayo MD Prostate cancer (HCC) (Primary Dx); Prostate cancer metastatic to bone (HCC); 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) 07/06/2025 Orders Only [facility] Medicine Oncology [facility] Floor 5 [place] [address] Sid Rayo MD 07/04/2025 Results Follow-Up [facility] Medicine Cardiology [address] [facility] Floor 1, [address] [place] [address] Sudhir Reynoso MD ECG 12 lead, Transthoracic Echo (TTE) Complete W Doppler/CF, Lipoprotein a (LPa), Additional followed-up results: 3 07/03/2025 12:45 PM CDT Lab [facility] 1st [place] [phone] 07/03/2025 12:30 PM CDT Lab [facility] 1 [facility] 1st [place] [address] High risk medication use; Prostate cancer metastatic to bone (HCC); Prostate cancer (HCC); 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) 07/03/2025 12:02 PM CDT - 07/03/2025 11:59 PM CDT Hospital Encounter [facility] Radiology 1 [place] [address] Prostate cancer metastatic to bone (HCC); Prostate cancer (HCC); 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) Discharge Disposition: Discharge to home or self care 07/03/2025 11:00 AM CDT - 07/03/2025 11:59 PM CDT Hospital Encounter [facility] Radiology 1 [place] [address] Prostate cancer metastatic to bone (HCC); Prostate cancer (HCC); 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) Discharge Disposition: Discharge to home or self care 07/03/2025 11:00 AM CDT - 07/03/2025 11:59 PM CDT Hospital Encounter [facility] Radiology 1 [place] [address] Discharge Disposition: Discharge to home or self care 07/03/2025 9:00 AM CDT Office Visit [facility] Medicine Cardiology [address] [place] [address] Floor 1, [address] [place] [phone] Sudhir Reynoso MD High risk medication use (Primary Dx); Essential hypertension; Dyspnea on exertion; Coronary artery calcification 06/29/2025 Telephone [facility] Oncology [address] [place] [address] Floor 5 [place] [address] Felicia Stewart RN 06/25/2025 Telephone [facility] Oncology [address] [place] [address] Floor 5 [place] [address] Felicia Stewart RN 06/25/2025 Orders Only [facility] Medicine Oncology [address] [place] [address] Floor 5 [place] [address] Sid Rayo MD Prostate cancer metastatic to bone (HCC) (Primary Dx); Prostate cancer (HCC); 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) 06/22/2025 2:00 PM CDT Clinical Support [facility] Medicine Oncology [address] [place] [address] 5 [place] [address] Prostate cancer metastatic to bone (HCC) 06/22/2025 1:30 PM CDT Lab [facility] - Lab Collection [address] [place] [address] 5 [place] [address] Prostate cancer metastatic to bone (HCC); Prostate cancer (HCC); 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) 06/22/2025 Orders Only [facility] Medicine Oncology [address] [place] [phone] Sid Rayo MD Prostate cancer (HCC) (Primary Dx) 06/22/2025 Telephone [facility] Oncology [address] [place] [phone] Felicia Stewart RN 06/21/2025 Orders Only [facility] Oncology [address] [place] [phone] Sid Rayo MD Prostate cancer metastatic to bone (HCC) (Primary Dx); Prostate cancer (HCC); 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) 06/21/2025 Orders Only [facility] Medicine Oncology [address] [place] [phone] Laly Montanez BS Prostate cancer metastatic to bone (HCC) (Primary Dx) 06/21/2025 Orders Only [facility] Oncology [address] [place] [phone] Layl Montanez BS Prostate cancer metastatic to bone (HCC) (Primary Dx) 06/20/2025 2:30 PM CDT Office Visit [facility] Medicine Oncology [address] [place] [phone] Sid Rayo MD Prostate cancer metastatic to bone (HCC); Prostate cancer (HCC); 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) 06/20/2025 Orders Only [facility] Medicine Oncology [address] [place] [phone] Laly Montanez BS 06/15/2025 1:00 PM CDT Office Visit [facility] Advanced [facility] Radiation Oncology [address] [facility] [place] [address] Davon Erwin MD 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) 06/15/2025 Orders Only [facility] Oncology [address] [facility] Floor 5 [place] [address] Sid Rayo MD Prostate cancer metastatic to bone (HCC) (Primary Dx); Prostate cancer (HCC); 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) 06/15/2025 Telephone [facility] Oncology [address] [facility] 5 [place] [address] Felicia Stewart RN from Last 3 Months Immunizations Immunization Administration Dates Next Due Influenza, Live, Intranasal, Quadrivalent 2014 Influenza, Quadrivalent, Apple l Culture-based MDCK, Preservative Free, Antibiotic Free, Intramuscular 09/21/2020 Influenza, Quadrivalent, Split, Intramuscular Influenza, Trivalent, IM (MDV) 08/08/2015 ZOSTER LIVE 05/09/2017 Surgical History Surgery Date Site/Laterality Comments PROSTATECTOMY HAND SURGERY UPPER GASTROINTESTINAL ENDOSCOPY COLONOSCOPY PROSTATE SURGERY HAND SURGERY trigger finger KNEE ARTHROSCOPY Medical History Medical History Date Comments Hypertension Hypertension Otriz esophagus Cancer (HCC) Sleep apnea GERD (gastroesophageal reflux disease) Colon polyp Prostate cancer (HCC) Emphysema of lung Cataract Dyslipidemia Family History Medical History Relation Name Comments Cancer Brother COPD Father COPD; Cause of : COPD Emphysema Father Leukemia Mother Valvular heart disease Mother Valvu lar Heart Disease; Relation Name Status Comments [...] on file Legal Sex Male 12:00 AM THEATER SET PRODUCTION DESIGNER Gender Identity Not on file Sexual Orientation Not on file Last Filed Vital Signs Vital Sign Reading Time Taken Comments Blood Pressure 107/70 09/13/2025 4:35 PM THEATER SET PRODUCTION DESIGNER Pulse 68 09/13/2025 8:15 AM THEATER SET PRODUCTION DESIGNER Temperature 36.1 C (97 F) 09/13/2025 8:15 AM THEATER SET PRODUCTION DESIGNER Respiratory Rate 18 09/13/2025 8:15 AM THEATER SET PRODUCTION DESIGNER Oxygen Saturation 97% 09/13/2025 8:15 AM THEATER SET PRODUCTION DESIGNER Inhaled Oxygen Concentration - - Weight 110.7 kg (244 lb) 09/13/2025 8:15 AM THEATER SET PRODUCTION DESIGNER Height 180.1 cm (5' 10.91) 08/01/2025 11:09 AM CDT Body Mass Index 34.12 08/01/2025 11:09 AM CDT Plan of Treatment Health Maintenance Due Date Last Done Comments Colon Cancer Screening-Colonoscopy 1955 Depression Screening 1955 DTaP/Tdap/Td Vaccine (1 - Tdap) 1967 Pneumococcal vaccine 65+ (1 of 2 - PCV) 1975 Zoster Vaccine (1 of 2) 07/04/2017 05/09/2017 Well Visit 65+ 2021 Influenza Vaccine (#1) 2025 , 08/05/2020, 08/08/2015, Additional history exists Fall Risk Assessment 05/23/2026 05/23/2025, 03/07/20 25 Prostate Cancer Screening-PSA 09/13/2027, 08/23/2025, 08/01/2025, Additional history exists Hepatitis B Screening Completed 06/22/2025 Hepatitis C Screening Completed 06/22/2025, 025 Abdominal Aortic Aneurysm (A AA) Screen Completed 09/11/2025, 07/03/2025 Procedures Procedure Name Priority Date/Time Associated Diagnosis Comments EGFR STAT 09/13/2025 8:08 AM THEATER SET PRODUCTION DESIGNER 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) DIFFERENTIAL AUTO STAT 09/13/2025 8:0 8 AM THEATER SET PRODUCTION DESIGNER 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) CBC WITH AUTO DIFFERENTIAL STAT 09/13/2025 8:08 AM THEATER SET PRODUCTION DESIGNER 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) COMPREHENSIVE METABOLIC PANEL STAT 09/13/2025 8:08 AM THEATER SET PRODUCTION DESIGNER 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) GAMMA GT STAT 09/13/2025 8:08 AM THEATER SET PRODUCTION DESIGNER 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) URIC ACID STAT 09/13/2025 8:08 AM THEATER SET PRODUCTION DESIGNER 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) PHOSPHORUS STAT 09/13/2025 8:08 AM THEATER SET PRODUCTION DESIGNER 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) AMYLASE STAT 09/13/2025 8:08 AM THEATER SET PRODUCTION DESIGNER 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) LIPASE STAT 09/13/2025 8:08 AM THEATER SET PRODUCTION DESIGNER 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) FERRITIN STAT 09/13/2025 8:08 AM THEATER SET PRODUCTION DESIGNER 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) CRP (ACUTE PHASE) STAT 09/13/2025 8:0 8 AM THEATER SET PRODUCTION DESIGNER 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) PROTIME-INR STAT 09/13/2025 8:08 AM THEATER SET PRODUCTION DESIGNER 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) APTT STAT 09/13/2025 8:08 AM THEATER SET PRODUCTION DESIGNER 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) PSA DIAGNOSTIC Routine 09/13/2025 8:08 AM THEATER SET PRODUCTION DESIGNER 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) NM BONE IMAGING WHOLE BODY Schedule Routine, Read Routine (OP Routine) 09/11/2025 4:33 PM THEATER SET PRODUCTION DESIGNER 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) CT CHEST ABDOMEN PELVIS W CONTRAST Schedule Routine, Read Routine (OP Routine) 09/11/2025 3:23 PM THEATER SET PRODUCTION DESIGNER 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) EGFR STAT 08/23/2025 9:57 AM THEATER SET PRODUCTION DESIGNER 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) COMPREHENSIVE METABOLIC PANEL STAT 08/23/2025 9:57 AM THEATER SET PRODUCTION DESIGNER 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) GAMMA GT STAT 08/23/2025 9:57 AM THEATER SET PRODUCTION DESIGNER 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) URIC ACID STAT 08/23/2025 9:57 AM THEATER SET PRODUCTION DESIGNER 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) PHOSPHORUS STAT 08/23/2025 9:57 AM THEATER SET PRODUCTION DESIGNER 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) AMYLASE STAT 08/23/2025 9:57 AM THEATER SET PRODUCTION DESIGNER 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) LIPASE STAT 08/23/2025 9:57 AM THEATER SET PRODUCTION DESIGNER 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) FERRITIN STAT 08/23/2025 9:57 AM THEATER SET PRODUCTION DESIGNER 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) CRP (ACUTE PHASE) STAT 08/23/2025 9:5 7 AM THEATER SET PRODUCTION DESIGNER 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) PROTIME-INR STAT 08/23/2025 9:57 AM THEATER SET PRODUCTION DESIGNER 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) APTT STAT 08/23/2025 9:57 AM THEATER SET PRODUCTION DESIGNER 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) PSA DIAGNOSTIC Routine 08/23/2025 9:57 AM THEATER SET PRODUCTION DESIGNER 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) DIFFERENTIAL AUTO STAT 08/23/2025 9:5 1 AM THEATER SET PRODUCTION DESIGNER 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) CBC WITH AUTO DIFFERENTIAL STAT 08/23/2025 9:51 AM THEATER SET PRODUCTION DESIGNER 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) EGFR STAT 08/01/2025 10:02 AM CDT 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) DIFFERENTIAL AUTO STAT 08/01/2025 10: 02 AM CDT 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) CBC WITH AUTO DIFFERENTIAL STAT 08/01/2025 10:02 AM CDT 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) COMPREHENSIVE METABOLIC PANEL STAT 08/01/2025 10:02 AM CDT 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) GAMMA GT STAT 08/01/2025 10:02 AM CDT 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) URIC ACID STAT 08/01/2025 10:02 AM CDT 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) PHOSPHORUS STAT 08/01/2025 10:02 AM CDT 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) AMYLASE STAT 08/01/2025 10:02 AM CDT 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) LIPASE STAT 08/01/2025 10:02 AM CDT 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) FERRITIN STAT 08/01/2025 10:02 AM CDT 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) CRP (ACUTE PHASE) STAT 08/01/2025 10: 02 AM CDT 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) PROTIME-INR STAT 08/01/2025 10:02 AM CDT 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) APTT STAT 08/01/2025 10:02 AM CDT 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) PSA DIAGNOSTIC Routine 08/01/2025 10:02 AM CDT 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) XR CHEST PA LATERAL 2 VIEWS ED 07/28/2025 11:43 PM CDT EGFR STAT 07/28/2025 10:59 PM CDT DIFFERENTIAL AUTO STAT 07/28/2025 10: 59 PM CDT TROPONIN T HIGH-SENSITIVITY SERIES (BASELINE, 2HR, 4HR, 6HR) STAT 07/28/2025 10:59 PM CDT COMPREHENSIVE METABOLIC PANEL STAT 07/28/2025 10:59 PM CDT CBC WITH AUTO DIFFERENTIAL STAT 07/28/2025 10:59 PM CDT ECG 12-LEAD STAT 07/28/2025 7:22 PM CDT EGFR STAT 07/26/2025 8:20 AM CDT 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) DIFFERENTIAL AUTO STAT 07/26/2025 8:2 0 AM CDT 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) CBC WITH AUTO DIFFERENTIAL STAT 07/26/2025 8:20 AM CDT 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) COMPREHENSIVE METABOLIC PANEL STAT 07/26/2025 8:20 AM CDT 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) GAMMA GT STAT 07/26/2025 8:20 AM CDT 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) PHOSPHORUS STAT 07/26/2025 8:20 AM CDT 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) URIC ACID STAT 07/26/2025 8:20 AM CDT 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) AMYLASE STAT 07/26/2025 8:20 AM CDT 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) LIPASE STAT 07/26/2025 8:20 AM CDT 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) FERRITIN STAT 07/26/2025 8:20 AM CDT 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) CRP (ACUTE PHASE) STAT 07/26/2025 8:2 0 AM CDT 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) PROTIME-INR STAT 07/26/2025 8:20 AM CDT 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) APTT STAT 07/26/2025 8:20 AM CDT 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) EGFR STAT 07/19/2025 8:20 AM CDT 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) DIFFERENTIAL AUTO STAT 07/19/2025 8:2 0 AM CDT 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) CBC WITH AUTO DIFFERENTIAL STAT 07/19/2025 8:20 AM CDT 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) COMPREHENSIVE METABOLIC PANEL STAT 07/19/2025 8:20 AM CDT 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) GAMMA GT STAT 07/19/2025 8:20 AM CDT 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) PHOSPHORUS STAT 07/19/2025 8:20 AM CDT 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) AMYLASE STAT 07/19/2025 8:20 AM CDT 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) URIC ACID STAT 07/19/2025 8:20 AM CDT 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) FERRITIN STAT 07/19/2025 8:20 AM CDT 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) LIPASE STAT 07/19/2025 8:20 AM CDT 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) CRP (ACUTE PHASE) STAT 07/19/2025 8:2 0 AM CDT 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) PROTIME-INR STAT 07/19/2025 8:20 AM CDT 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) APTT STAT 07/19/2025 8:20 AM CDT 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) PSA DIAGNOSTIC Routine 07/19/2025 8:20 AM CDT 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) TRANSTHORACIC ECHO (TTE) COMPLETE W DOPPLER/CF W CONTRAST Routine 07/10/2025 2:58 PM CDT High risk medication use NM BONE IMAGING WHOLE BODY Schedule Routine, Read Routine (OP Routine) 07/03/2025 3:00 PM CDT Prostate cancer metastatic to bone (HCC) Prostate cancer (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) CRP (ACUTE PHASE) Routine 07/03/2025 12: 36 PM CDT Prostate cancer metastatic to bone (HCC) Prostate cancer (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) PRO B-TYPE NATRIURETIC PEPTIDE Routine 07/03/2025 12:36 PM CDT High risk medication use TROPONIN I HIGH-SENSITIVITY Routine 07/03/2025 12:36 PM CDT High risk medication use LIPID PANEL Routine 07/03/2025 12:36 PM CDT High risk medication use LIPOPROTEIN A (LPA) Routine 07/03/2025 1 2:36 PM CDT High risk medication use CT CHEST ABDOMEN PELVIS W CONTRAST Schedule Routine, Read Routine (OP Routine) 07/03/2025 12:20 PM CDT Prostate cancer metastatic to bone (HCC) Prostate cancer (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) ECG 12-LEAD Routine 07/03/2025 9:12 AM CDT High risk medication use URINALYSIS AND REFLEX TO MICROSCOPIC Routine 06/22/2025 1:34 PM CDT Prostate cancer metastatic to bone (HCC) Prostate cancer (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) EGFR Routine 06/22/2025 1:29 PM CDT Prostate cancer metastatic to bone (HCC) Prostate cancer (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) DIFFERENTIAL AUTO Routine 06/22/2025 1:2 9 PM CDT Prostate cancer metastatic to bone (HCC) Prostate cancer (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) TOTAL TESTOSTERONE Routine 06/22/2025 1: 29 PM CDT Prostate cancer (HCC) 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) CBC WITH AUTO DIFFERENTIAL Routine 06/22/2025 1:29 PM CDT Prostate cancer metastatic to bone (HCC) Prostate cancer (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) COMPREHENSIVE METABOLIC PANEL Routine 06/22/2025 1:29 PM CDT Prostate cancer metastatic to bone (HCC) Prostate cancer (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) GAMMA GT Routine 06/22/2025 1:29 PM CDT Prostate cancer metastatic to bone (HCC) Prostate cancer (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) URIC ACID Routine 06/22/2025 1:29 PM CDT Prostate cancer metastatic to bone (HCC) Prostate cancer (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) PHOSPHORUS Routine 06/22/2025 1:29 PM CDT Prostate cancer metastatic to bone (HCC) Prostate cancer (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) AMYLASE Routine 06/22/2025 1:29 PM CDT Prostate cancer metastatic to bone (HCC) Prostate cancer (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) LIPASE Routine 06/22/2025 1:29 PM CDT Prostate cancer metastatic to bone (HCC) Prostate cancer (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) THYROID FUNCTION CASCADE Routine 06/22/2025 1:29 PM CDT Prostate cancer metastatic to bone (HCC) Prostate cancer (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) FERRITIN Routine 06/22/2025 1:29 PM CDT Prostate cancer metastatic to bone (HCC) Prostate cancer (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) PROTIME-INR Routine 06/22/2025 1:29 PM CDT Prostate cancer metastatic to bone (HCC) Prostate cancer (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) APTT Routine 06/22/2025 1:29 PM CDT Prostate cancer metastatic to bone (HCC) Prostate cancer (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) PSA DIAGNOSTIC Routine 06/22/2025 1:29 PM CDT Prostate cancer metastatic to bone (HCC) Prostate cancer (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) HEPATITIS B SURFACE ANTIGEN Routine 06/22/2025 1:29 PM CDT Prostate cancer metastatic to bone (HCC) Prostate cancer (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) HEPATITIS B SURFACE ANTIBODY (IMMUNE STATUS) Routine 06/22/2025 1:29 PM CDT Prostate cancer metastatic to bone (HCC) Prostate cancer (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) HEPATITIS B CORE ANTIBODY, TOTAL Routine 06/22/2025 1:29 PM CDT Prostate cancer metastatic to bone (HCC) Prostate cancer (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) HEPATITIS B DNA, QUANTITATIVE, PCR Routine 06/22/2025 1:29 PM CDT Prostate cancer metastatic to bone (HCC) Prostate cancer (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 73 m2 Comment: [...] last reviewed 2021. Blood 09/13/2025 8:08 AM THEATER SET PRODUCTION DESIGNER 09/13/2025 8:22 AM THEATER SET PRODUCTION DESIGNER us Sid Rayo MD LAB BLOOD ORDERABLES Fin al Result [facility] [place] [address] * Differential, auto (09/13/2025 8:08 AM THEATER SET PRODUCTION DESIGNER) Neutrophil abs 2.55 1.50 - 6.50 K/cumm Comment:Testing performed by : [facility], [address] [place] [phone] Lymphocyte abs 1.62 0.80 - 3.30 K/cumm [facility] Comment:Testing performed by : [facility], [address] [place] [phone] Monocyte abs 0.68 0.20 - 0.80 K/cumm [facility] Comment:Testing performed by : [facility], [address] [place], [place] [id number] Eosinophil abs 0.17 0.00 - 0.50 K/cumm [facility] Comment:Testing performed by : [facility], [address] [place], [place] [id number] Basophil abs 0.05 0.00 - 0.10 K/cumm [facility] Comment:Testing performed by : [facility], [address] [place], [place] [id number] Neutrophil pct 50.3 % [facility] Comment: Interpretive Data Percent cell count reference ranges are not reported, since discordance with absolute values may lead to misinterpretation of CBC data. Current Interpretive Data was last revised on 2018. Testing performed by: [facility], [address] [place] [phone] Lymphocyte pct 32.1 % [facility] Comment: Interpretive Data Percent cell count reference ranges are not reported, since discordance with absolute values may lead to misinterpretation of CBC data. Current Interpretive Data was last revised on 2018. Testing performed by: [facility], [address] [place], [place] [id number] Monocyte pct 13.4 % [facility] Comment: Interpretive Data Percent cell count reference ranges are not reported, since discordance with absolute values may lead to misinterpretation of CBC data. Current Interpretive Data was last revised on 2018. Testing performed by: [facility], [address] [place] [phone] Eosinophil pct 3.3 % [facility] Comment: Interpretive Data Percent cell count reference ranges are not reported, since discordance with absolute values may lead to misinterpretation of CBC data. Current Interpretive Data was last revised on 2018. Testing performed by: [facility], [address] [place] [address] Basophil pct 0.9 % [facility] Comment: Interpretive Data Percent cell count reference ranges are not reported, since discordance with absolute values may lead to misinterpretation of CBC data. Current Interpretive Data was last revised on 2018. Testing performed by: [facility], [address] [place] [address] Blood 09/13/2025 8:08 AM THEATER SET PRODUCTION DESIGNER 09/13/2025 8:19 AM THEATER SET PRODUCTION DESIGNER us Sid Rayo MD LAB BLOOD ORDERABLES Fin al Result [facility] Department [place] [address] * CBC with auto differential (09/13/2025 8:08 AM THEATER SET PRODUCTION DESIGNER) WBC 5.06 3.80 - 9.90 K/cumm Comment:Testing performed by : [facility], [address] [place] [address] Hgb 14.1 13.0 - 17.5 g/dL [facility] Comment:Testing performed by : [facility], [address] [place] [address] Hct 41.2 38.9 - 50.3 % [facility] Comment:Testing performed by : [facility], [address] [place] [address] Plt 171 150 - 400 K/cumm [facility] Comment:Testing performed by : [facility], [address] [place] [address] MPV 8.5 6.8 - 10.4 fL [facility] Comment:Testing performed by : [facility], [address] [place] [address] RBC 4.43 4.30 - 5.80 M/cumm [facility] Comment:Testing performed by : [facility], [address] [place], [place] [phone] MCV 93.1 81.3 - 96.4 fL [facility] Comment:Testing performed by : [facility], [address] [place], [place] [phone] MCH 31.9 27.1 - 33.3 pg [facility] Comment:Testing performed by : [facility], [address] [place], [place] [phone] MCHC 34.3 32.3 - 35.7 g/dL [facility] Comment:Testing performed by : [facility], [address] [place], [place] [phone] RDW CV 12.9 11.1 - 14.9 % [facility] Comment:Testing performed by : [facility], [address] [place], [place] [phone] NRBC abs 0.00 0.00 - 0.01 K/cumm [facility] Comment:Testing performed by : [facility], [address] [place], [place] [phone] Blood 09/13/2025 8:08 AM THEATER SET PRODUCTION DESIGNER 09/13/2025 8:19 AM THEATER SET PRODUCTION DESIGNER us Sid Rayo MD LAB BLOOD ORDERABLES Fin al Result [facility] [place] [address] * aPTT (09/13/2025 8:08 AM THEATER SET PRODUCTION DESIGNER) aPTT 29 26 - 38 sec Comment: Interpretive Data Heparin therapeutic range: 66.0 - 100.0 seconds. Range based on correlation with therapeutic heparin activity range of 0.3 - 0.7 Units/mL. Blood 09/13/2025 8:08 AM THEATER SET PRODUCTION DESIGNER 09/13/2025 8:41 AM THEATER SET PRODUCTION DESIGNER us Sid Rayo MD LAB BLOOD ORDERABLES Fin al Result Performing Organization Address [facility] de Phone Number [facility] [place] [address] * Protime-INR (09/13/2025 8:08 AM THEATER SET PRODUCTION DESIGNER) PT 11.1 10.2 - 13.5 sec INR 0.98 0.90 - 1.20 [facility] Comment: Interpretive data Oral anticoagulant therapeutic ranges: Venous thromboembolism prophylaxis or treatment: 2.0-3.0 CARDIOLOGY Standard range: 2.0-3.0 High-intensity range: 2.5-3.5 Refer to indication-specific guidelines for appropriate target ranges for prosthetic heart valve replacement. Current interpretive data was last revised on 2019. Blood 09/13/2025 8:08 AM THEATER SET PRODUCTION DESIGNER 09/13/2025 8:41 AM THEATER SET PRODUCTION DESIGNER Sid Rayo MD LAB BLOOD ORDERABLES Fin al Result Performing Organization Address [facility] de Phone Number [facility] [place] [address] * CRP (acute phase) (09/13/2025 8:08 AM THEATER SET PRODUCTION DESIGNER) CRP <0.5 <=10.0 mg/L Blood 09/13/2025 8:08 AM THEATER SET PRODUCTION DESIGNER 09/13/2025 8:41 AM THEATER SET PRODUCTION DESIGNER Sid Rayo MD LAB BLOOD ORDERABLES Fin al Result Performing Organization Address [facility] [place] [address] * Uric acid (09/13/2025 8:08 AM THEATER SET PRODUCTION DESIGNER) Uric acid 4.0 3.0 - 8.0 mg/dL Blood 09/13/2025 8:08 AM THEATER SET PRODUCTION DESIGNER 09/13/2025 8:22 AM THEATER SET PRODUCTION DESIGNER Sid Rayo MD LAB BLOOD ORDERABLES Fin al Result Performing Organization Address [facility] Co de Phone Number [facility] [place] [address] * (ABNORMAL) PSA diagnostic (09/13/2025 8:08 AM THEATER SET PRODUCTION DESIGNER) PSA-Total 5.52(H) <=5.40 ng/mL Comment: Interpretive Data [...] last revised 22. Blood 09/13/2025 8:08 AM THEATER SET PRODUCTION DESIGNER 09/13/2025 8:22 AM THEATER SET PRODUCTION DESIGNER us Sid Rayo MD LAB BLOOD ORDERABLES Fin al Result Performing Organization Address [facility] de Phone Number [facility] [place] [address] * Phosphorus (09/13/2025 8:08 AM THEATER SET PRODUCTION DESIGNER) Phosphorus, pl 3.5 2.3 - 4.5 mg/dL Blood 09/13/2025 8:0 8 AM THEATER SET PRODUCTION DESIGNER 09/13/2025 8:22 AM THEATER SET PRODUCTION DESIGNER Sid Rayo MD LAB BLOOD ORDERABLES Fin al Result Performing Organization Address [facility] Co de Phone Number [facility] [place] [address] * Lipase (09/13/2025 8:08 AM THEATER SET PRODUCTION DESIGNER) Lipase 46 10 - 99 Units/L Blood 09/13/2025 8:08 AM THEATER SET PRODUCTION DESIGNER 09/13/2025 8:22 AM THEATER SET PRODUCTION DESIGNER Sid Rayo MD LAB BLOOD ORDERABLES Fin al Result Performing Organization Address [facility] de Phone Number [facility] [place] [address] * Gamma GT (09/13/2025 8:08 AM THEATER SET PRODUCTION DESIGNER) GGT 28 10 - 50 Units/L Blood 09/13/2025 8:08 AM THEATER SET PRODUCTION DESIGNER 09/13/2025 8:22 AM THEATER SET PRODUCTION DESIGNER Sid Rayo MD LAB BLOOD ORDERABLES Fin al Result Performing Organization Address [facility] de Phone Number [facility] [place] [address] * Ferritin (09/13/2025 8:08 AM THEATER SET PRODUCTION DESIGNER) Ferritin 204 30 - 400 ng/mL Blood 09/13/2025 8:08 AM THEATER SET PRODUCTION DESIGNER 09/13/2025 8:22 AM THEATER SET PRODUCTION DESIGNER Sid Rayo MD LAB BLOOD ORDERABLES Fin al Result Performing Organization Address [facility] [place] [address] * Amylase (09/13/2025 8:08 AM THEATER SET PRODUCTION DESIGNER) Amylase 67 30 - 99 Units/L Blood 09/13/2025 8:08 AM THEATER SET PRODUCTION DESIGNER 09/13/2025 8:22 AM THEATER SET PRODUCTION DESIGNER Sid Rayo MD LAB BLOOD ORDERABLES Fin al Result Performing Organization Address City/[facility] de Phone Number [facility] [place] [address] * Comprehensive metabolic panel (09/13/2025 8:08 AM THEATER SET PRODUCTION DESIGNER) Sodium 140 135 - 145 mmol/L Potassium, pl 3.9 3.3 - 4.9 mmol/L [facility] Chloride 104 97 - 110 mmol/L [facility] CO2 29 22 - 32 mmol/L [facility] Anion gap 7 2 - 15 mmol/L [facility] BUN 18 6 - 25 mg/dL [facility] Creatinine 0.84 0.80 - 1.30 mg/dL [facility] Glucose 90 70 - 199 mg/dL [facility] Comment: Interpretive Data Fasting glucose >/= [...] classification and Diagnosis of Diabetes Diabetes Care 2021; 46: S19-S40. Current interpretive data was last revised 2022. Calcium 9.4 8.5 - 10.3 mg/dL [facility] Bilirubin, total 0.3 0.1 - 1.2 mg/dL [facility] Protein, pl 6.7 6.5 - 8.5 g/dL [facility] Albumin 4.2 3.5 - 5.0 g/dL [facility] Alk phos 86 40 - 130 Units/L [facility] ALT 22 7 - 55 Units/L [facility] AST 33 10 - 50 Units/L [facility] Blood 09/13/2025 8:08 AM THEATER SET PRODUCTION DESIGNER 09/13/2025 8:22 AM THEATER SET PRODUCTION DESIGNER us Sid Rayo MD LAB BLOOD ORDERABLES Fin al Result [facility] Department [place] [address] * NM bone scan whole body (09/11/2025 4:33 PM THEATER SET PRODUCTION DESIGNER) Anatomical Region Laterality Modality N/A Nuclear Medicine 09/11/2025 4:51 PM THEATER SET PRODUCTION DESIGNER Impressions 09/11/2025 4:56 PM THEATER SET PRODUCTION DESIGNER No scintigraphic evidence of osseous metastatic disease. Dictated by: Chris Sepulveda MD The radiology attending physician has personally reviewed this study, and had reviewed and/or edited this written report and agrees with it. Electronically signed by: Lencho Wood DO Narrative 09/11/2025 4:56 PM THEATER SET PRODUCTION DESIGNER EXAMINATION: BONE SCINTIGRAPHY (WHOLE-BODY) DATE OF STUDY: [...] it. Electronically signed by: Lencho Wood DO Sid Rayo MD [facility] [place] PROCEDURES Final Result * CT chest abdomen pelvis with contrast (09/11/2025 3:23 PM THEATER SET PRODUCTION DESIGNER) Anatomical Region Laterality Modality Body N/A Computed Tomogra phy 09/11/2025 3:57 PM THEATER SET PRODUCTION DESIGNER Impressions 09/11/2025 4:25 PM THEATER SET PRODUCTION DESIGNER 1. Postsurgical changes of prostatectomy with interval [...] Ej Lim M.D. Narrative 09/11/2025 4:25 PM THEATER SET PRODUCTION DESIGNER EXAMINATION: Computed tomography of the chest, abdomen [...] it. Electronically signed by: Ej Lim M.D. Sid Rayo MD IMG CT PROCEDURES Final Result * eGFR (08/23/2025 9:57 AM THEATER SET PRODUCTION DESIGNER) eGFR 77 >=60 mL/min/1. 73 m2 Comment: Interpretive Data [...] interpretive data was last reviewed 2021. Blood 08/23/2025 9:57 AM THEATER SET PRODUCTION DESIGNER 08/23/2025 9:59 AM THEATER SET PRODUCTION DESIGNER us Sid Rayo MD LAB BLOOD ORDERABLES Fin al Result Performing Organization Address [facility] de Phone Number [facility] [place] [address] * aPTT (08/23/2025 9:57 AM THEATER SET PRODUCTION DESIGNER) aPTT 28 26 - 38 sec Comment: Interpretive Data Heparin therapeutic range: 66.0 - 100.0 seconds. Range based on correlation with therapeutic heparin activity range of 0.3 - 0.7 Units/mL. Blood 08/23/2025 9:57 AM THEATER SET PRODUCTION DESIGNER 08/23/2025 10:32 AM THEATER SET PRODUCTION DESIGNER us Sid Rayo MD LAB BLOOD ORDERABLES Fin al Result Performing Organization Address [facility] de Phone Number [facility] [place] [address] * Protime-INR (08/23/2025 9:57 AM THEATER SET PRODUCTION DESIGNER) PT 11.2 10.2 - 13.5 sec INR 0.99 0.90 - 1.20 [facility] Comment: Interpretive data Oral anticoagulant therapeutic ranges: Venous thromboembolism prophylaxis or treatment: 2.0-3.0 CARDIOLOGY Standard range: 2.0-3.0 High-intensity range: 2.5-3.5 Refer to indication-specific guidelines for appropriate target ranges for prosthetic heart valve replacement. Current interpretive data was last revised on 2019. Blood 08/23/2025 9:57 AM THEATER SET PRODUCTION DESIGNER 08/23/2025 10:32 AM THEATER SET PRODUCTION DESIGNER us Sid Rayo MD LAB BLOOD ORDERABLES Fin al Result Performing Organization Address [facility] Co de Phone Number [facility] [place] [address] * CRP (acute phase) (08/23/2025 9:57 AM THEATER SET PRODUCTION DESIGNER) CRP <0.5 <=10.0 mg/L Blood 08/23/2025 9:57 AM THEATER SET PRODUCTION DESIGNER 08/23/2025 10:32 AM THEATER SET PRODUCTION DESIGNER Sid Rayo MD LAB BLOOD ORDERABLES Fin al Result Performing Organization Address [facility] de Phone Number [facility] [place] [address] * Uric acid (08/23/2025 9:57 AM THEATER SET PRODUCTION DESIGNER) Uric acid 4.3 3.0 - 8.0 mg/dL Blood 08/23/2025 9:57 AM THEATER SET PRODUCTION DESIGNER 08/23/2025 9:59 AM THEATER SET PRODUCTION DESIGNER Sid Rayo MD LAB BLOOD ORDERABLES Fin al Result Performing Organization Address [facility] de Phone Number [facility] [place] [address] * (ABNORMAL) PSA diagnostic (08/23/2025 9:57 AM THEATER SET PRODUCTION DESIGNER) PSA-Total 5.69(H) <=5.40 ng/mL Comment: Interpretive Data AGE SEX [...] Current interpretive data last revised 22. Blood 08/23/2025 9:57 AM THEATER SET PRODUCTION DESIGNER 08/23/2025 9:59 AM THEATER SET PRODUCTION DESIGNER Sid Rayo MD LAB BLOOD ORDERABLES Fin al Result Performing Organization Address [facility] de Phone Number [facility] [place] [address] * Phosphorus (08/23/2025 9:57 AM THEATER SET PRODUCTION DESIGNER) Phosphorus, pl 3.6 2.3 - 4.5 mg/dL Blood 08/23/2025 9:57 AM THEATER SET PRODUCTION DESIGNER 08/23/2025 9:59 AM THEATER SET PRODUCTION DESIGNER Sid Rayo MD LAB BLOOD ORDERABLES Fin al Result Performing Organization Address [facility] de Phone Number [facility] [place] [address] * Lipase (08/23/2025 9:57 AM THEATER SET PRODUCTION DESIGNER) Lipase 80 10 - 99 Units/L Blood 08/23/2025 9:57 AM THEATER SET PRODUCTION DESIGNER 08/23/2025 9:59 AM THEATER SET PRODUCTION DESIGNER Sdi Rayo MD LAB BLOOD ORDERABLES Fin al Result Performing Organization Address [facility] [place] [address] * Gamma GT (08/23/2025 9:57 AM THEATER SET PRODUCTION DESIGNER) GGT 25 10 - 50 Units/L Blood 08/23/2025 9:57 AM THEATER SET PRODUCTION DESIGNER 08/23/2025 9:59 AM THEATER SET PRODUCTION DESIGNER Sid Rayo MD LAB BLOOD ORDERABLES Fin al Result Performing Organization Address [facility]/ZIP Co de Phone Number [facility] [place] [address] * Ferritin (08/23/2025 9:57 AM THEATER SET PRODUCTION DESIGNER) Pathologist [facility] Ferritin 191 30 - 400 ng/mL Blood 08/23/2025 9:57 AM THEATER SET PRODUCTION DESIGNER 08/23/2025 9:59 AM THEATER SET PRODUCTION DESIGNER Sid Rayo MD LAB BLOOD ORDERABLES Fin al Result Performing Organization Address [facility] Co de Phone Number [facility] [place] [address] * Amylase (08/23/2025 9:57 AM THEATER SET PRODUCTION DESIGNER) [facility] Amylase 76 30 - 99 Units/L Blood 08/23/2025 9:57 AM THEATER SET PRODUCTION DESIGNER 08/23/2025 9:59 AM THEATER SET PRODUCTION DESIGNER Sid Rayo MD LAB BLOOD ORDERABLES Fin al Result Performing Organization Address [facility] [place] [address] * Comprehensive metabolic panel (08/23/2025 9:57 AM THEATER SET PRODUCTION DESIGNER) [facility] Sodium 140 135 - 145 mmol/L Potassium, pl 4.1 3.3 - 4.9 mmol/L [facility] Chloride 102 97 - 110 mmol/L [facility] CO2 31 22 - 32 mmol/L [facility] Anion gap 7 2 - 15 mmol/L [facility] BUN 18 6 - 25 mg/dL [facility] Creatinine 1.05 0.80 - 1.30 mg/dL [facility] Glucose 90 70 - 199 mg/dL [facility] Comment: Interpretive Data Fasting glucose >/= [...] interpretive data was last revised 2022. Calcium 9.6 8.5 - 10.3 mg/dL [facility] Bilirubin, total 0.3 0.1 - 1.2 mg/dL [facility] Protein, pl 7.0 6.5 - 8.5 g/dL [facility] Albumin 4.4 3.5 - 5.0 g/dL [facility] Alk phos 88 40 - 130 Units/L [facility] ALT 23 7 - 55 Units/L [facility] AST 25 10 - 50 Units/L [facility] Blood 08/23/2025 9:57 AM THEATER SET PRODUCTION DESIGNER 08/23/2025 9:59 AM THEATER SET PRODUCTION DESIGNER us Sid Rayo MD LAB BLOOD ORDERABLES Fin al Result [facility] [place] [address] * Differential, auto (08/23/2025 9:51 AM THEATER SET PRODUCTION DESIGNER) Neutrophil abs 2.38 1.50 - 6.50 K/cumm Comment:Testing performed by : [facility], [address] [place] [phone] Lymphocyte abs 1.19 0.80 - 3.30 K/cumm [facility] Comment:Testing performed by : [facility], [address] [place] [phone] Monocyte abs 0.52 0.20 - 0.80 K/cumm [facility]J Comment:Testing performed by : [facility], [address] [place] [phone] Eosinophil abs 0.08 0.00 - 0.50 K/cumm [facility]J Comment:Testing performed by : [facility], [address] [place] [phone] Basophil abs 0.03 0.00 - 0.10 K/cumm [facility]J Comment:Testing performed by : [facility], [address] [place], [place] [id number] Neutrophil pct 56.7 % [facility] Comment: Interpretive Data Percent cell count reference ranges are not reported, since discordance with absolute values may lead to misinterpretation of CBC data. Current Interpretive Data was last revised on 2018. Testing performed by: [facility], [address] [place], [place] [id number] Lymphocyte pct 28.3 % [facility] Comment: Interpretive Data Percent cell count reference ranges are not reported, since discordance with absolute values may lead to misinterpretation of CBC data. Current Interpretive Data was last revised on 2018. Testing performed by: [facility], [address] [place], [place] [id number] Monocyte pct 12.4 % [facility] Comment: Interpretive Data Percent cell count reference ranges are not reported, since discordance with absolute values may lead to misinterpretation of CBC data. Current Interpretive Data was last revised on 2018. Testing performed by: [facility], [address] [place] [address] Eosinophil pct 1.9 % [facility] Comment: Interpretive Data Percent cell count reference ranges are not reported, since discordance with absolute values may lead to misinterpretation of CBC data. Current Interpretive Data was last revised on 2018. Testing performed by: [facility], [address] [place], [place] [id number] Basophil pct 0.7 % [facility] Comment: Interpretive Data Percent cell count reference ranges are not reported, since discordance with absolute values may lead to misinterpretation of CBC data. Current Interpretive Data was last revised on 2018. Testing performed by: [facility], [address] [place] [address] Blood 08/23/2025 9:51 AM THEATER SET PRODUCTION DESIGNER 08/23/2025 9:54 AM THEATER SET PRODUCTION DESIGNER Sid Rayo MD LAB BLOOD ORDERABLES Fin al Result [facility] Department [place] [address] * CBC with auto differential (08/23/2025 9:51 AM THEATER SET PRODUCTION DESIGNER) WBC 4.20 3.80 - 9.90 K/cumm Comment:Testing performed by : [facility], [address] [place] [address] Hgb 14.3 13.0 - 17.5 g/dL [facility] Comment:Testing performed by : [facility], [address] [place] [address] Hct 41.9 38.9 - 50.3 % [facility] Comment:Testing performed by : [facility], [address] [place] [address] Plt 192 150 - 400 K/cumm [facility]ERIFF Comment:Testing performed by : [facility], [address] [place] [address] MPV 8.1 6.8 - 10.4 fL [facility] Comment:Testing performed by : [facility], [address] [place] [address] RBC 4.43 4.30 - 5.80 M/cumm [facility]ER[facility] Comment:Testing performed by : [facility], [address] [place] [address] MCV 94.7 81.3 - 96.4 fL [facility]ER[facility] Comment:Testing performed by : [facility], [address] [place] [address] MCH 32.3 27.1 - 33.3 pg CERDAWIT SHERIFF Comment:Testing performed by : [facility], [address] [place] [address] MCHC 34.2 32.3 - 35.7 g/dL [facility] Comment:Testing performed by : [facility], [address] [place] [address] RDW CV 12.7 11.1 - 14.9 % [facility] Comment:Testing performed by : [facility], [facility] [place] [phone] NRBC abs 0.00 0.00 - 0.01 K/cumm [facility] Comment:Testing performed by : [facility], [facility] [place] [phone] Blood 08/23/2025 9:51 AM THEATER SET PRODUCTION DESIGNER 08/23/2025 9:54 AM THEATER SET PRODUCTION DESIGNER Sid Rayo MD LAB BLOOD ORDERABLES Fin al Result [facility] [place] [address] * eGFR (08/01/2025 10:02 AM CDT) eGFR >90 >=60 mL/min/1. 73 m2 Comment: [...] interpretive data was last reviewed 2021. Blood 08/01/2025 10:0 2 AM CDT 08/01/2025 10:07 AM CDT us Sid Rayo MD LAB BLOOD ORDERABLES Fin al Result [facility] Department [place] [address] * Differential, auto (08/01/2025 10:02 AM CDT) Neutrophil abs 5.12 1.50 - 6.50 K/cumm Comment:Testing performed by : [facility], [address] [place] [phone] Lymphocyte abs 1.61 0.80 - 3.30 K/cumm [facility] Comment:Testing performed by : [facility], [address] [place] [phone] Monocyte abs 0.70 0.20 - 0.80 K/cumm [facility] Comment:Testing performed by : [facility], [address] [place] [phone] Eosinophil abs 0.11 0.00 - 0.50 K/cumm [facility] Comment:Testing performed by : [facility], [address] [place] [phone] Basophil abs 0.04 0.00 - 0.10 K/cumm [facility] Comment:Testing performed by : [facility], [address] [place] [phone] Neutrophil pct 67.6 % [facility] Comment: Interpretive Data Percent cell count reference ranges are not reported, since discordance with absolute values may lead to misinterpretation of CBC data. Current Interpretive Data was last revised on 2018. Testing performed by: [facility], [address] [place] [phone] Lymphocyte pct 21.2 % [facility] Comment: Interpretive Data Percent cell count reference ranges are not reported, since discordance with absolute values may lead to misinterpretation of CBC data. Current Interpretive Data was last revised on 2018. Testing performed by: [facility], [address] [place] [phone] Monocyte pct 9.2 % [facility] Comment: Interpretive Data Percent cell count reference ranges are not reported, since discordance with absolute values may lead to misinterpretation of CBC data. Current Interpretive Data was last revised on 2018. Testing performed by: [facility], [address] [place], [place] [phone] Eosinophil pct 1.5 % [facility]ER[facility] Comment: Interpretive Data Percent cell count reference ranges are not reported, since discordance with absolute values may lead to misinterpretation of CBC data. Current Interpretive Data was last revised on 2018. Testing performed by: [facility], [address] [place] [address] Basophil pct 0.5 % [facility]ERIFF Comment: Interpretive Data Percent cell count reference ranges are not reported, since discordance with absolute values may lead to misinterpretation of CBC data. Current Interpretive Data was last revised on 2018. Testing performed by: [facility], [address] [place] [address] Blood 08/01/2025 10:0 2 AM CDT 08/01/2025 10:05 AM CDT us Sid Rayo MD LAB BLOOD ORDERABLES Fin al Result [facility] Department [place] [address] * (ABNORMAL) CBC with auto differential (08/01/2025 10:02 AM CDT) WBC 7.58 3.80 - 9.90 K/cumm Comment:Testing performed by : [facility], [address] [place] [address] Hgb 14.1 13.0 - 17.5 g/dL [facility]ER[facility] Comment:Testing performed by : [facility], [address] [place] [address] Hct 41.4 38.9 - 50.3 % [facility] SHERIFF Comment:Testing performed by : [facility], [address] [place] [address] Plt 192 150 - 400 K/cumm [facility] SHERIFF Comment:Testing performed by : [facility], [address] [place], [place] [phone] MPV 7.9 6.8 - 10.4 fL [facility]ERIFF Comment:Testing performed by : [facility], [address] [place], [place] [phone] RBC 4.23(L) 4.30 - 5.80 M/cumm [facility] SHERIFF Comment:Testing performed by : [facility], [address] [place], [place] [phone] MCV 97.8(H) 81.3 - 96.4 fL [facility]ERIFF Comment:Testing performed by : [facility], [address] [place], [place] [phone] MCH 33.2 27.1 - 33.3 pg [facility]ESS SHERIFF Comment:Testing performed by : [facility], [address] [place], [place] [phone] MCHC 34.0 32.3 - 35.7 g/dL [facility]ER[facility] Comment:Testing performed by : [facility], [address] [place], [place] [phone] RDW CV 12.3 11.1 - 14.9 % [facility] Comment:Testing performed by : [facility], [address] [place], [place] [phone] NRBC abs 0.00 0.00 - 0.01 K/cumm [facility] Comment:Testing performed by : [facility], [address] [place], [place] [phone] Blood 08/01/2025 10:0 2 AM CDT 08/01/2025 10:05 AM CDT us Sid Rayo MD LAB BLOOD ORDERABLES Fin al Result [facility] Department [place] [address] * aPTT (08/01/2025 10:02 AM CDT) aPTT 27 26 - 38 sec Comment: Interpretive Data Heparin therapeutic range: 66.0 - 100.0 seconds. Range based on correlation with therapeutic heparin activity range of 0.3 - 0.7 Units/mL. Current interpretive data was last revised on 2023. Blood 08/01/2025 10:0 2 AM CDT 08/01/2025 10:32 AM CDT Sid Rayo MD LAB BLOOD ORDERABLES Fin al Result Performing Organization Address [facility] de Phone Number [facility] [place] [address] * Protime-INR (08/01/2025 10:02 AM CDT) Pathologist [facility] PT 11.2 10.2 - 13.5 sec INR 0.99 0.90 - 1.20 [facility] Comment: Interpretive data Oral anticoagulant therapeutic ranges: Venous thromboembolism prophylaxis or treatment: 2.0-3.0 CARDIOLOGY Standard range: 2.0-3.0 High-intensity range: 2.5-3.5 Refer to indication-specific guidelines for appropriate target ranges for prosthetic heart valve replacement. Current interpretive data was last revised on 2019. Blood 08/01/2025 10:0 2 AM CDT 08/01/2025 10:32 AM CDT Sid Rayo MD LAB BLOOD ORDERABLES Fin al Result Performing Organization Address [facility] de Phone Number [facility] [place] [address] * CRP (acute phase) (08/01/2025 10:02 AM CDT) Pathologist [facility] [place] CRP <0.5 <=10.0 mg/L Blood 08/01/2025 10:0 2 AM CDT 08/01/2025 10:32 AM CDT Sid Rayo MD LAB BLOOD ORDERABLES Fin al Result [facility] [place] [address] * Uric acid (08/01/2025 10:02 AM CDT) Pathologist [facility] Uric acid 5.3 3.0 - 8.0 mg/dL Blood 08/01/2025 10:0 2 AM CDT 08/01/2025 10:07 AM CDT Sid Rayo MD LAB BLOOD ORDERABLES Fin al Result Performing Organization Address [facility] [place] [address] * (ABNORMAL) PSA diagnostic (08/01/2025 10:02 AM CDT) [facility] PSA-Total 8.37(H) <=5.40 ng/mL Comment: Interpretive Data AGE SEX [...] Current interpretive data last revised 22. Blood 08/01/2025 10:0 2 AM CDT 08/01/2025 10:07 AM CDT Sid Rayo MD LAB BLOOD ORDERABLES Fin al Result Performing Organization Address [facility] Co de Phone Number [facility] [place] [address] * Phosphorus (08/01/2025 10:02 AM CDT) Phosphorus, pl 3.7 2.3 - 4.5 mg/dL Blood 08/01/2025 10:0 2 AM CDT 08/01/2025 10:07 AM CDT Sid Rayo MD LAB BLOOD ORDERABLES Fin al Result Performing Organization Address [facility] de Phone Number [facility] [place] [address] * Lipase (08/01/2025 10:02 AM CDT) Lipase 46 10 - 99 Units/L Blood 08/01/2025 10:0 2 AM CDT 08/01/2025 10:07 AM CDT Sid Rayo MD LAB BLOOD ORDERABLES Fin al Result Performing Organization Address [facility] de Phone Number [facility] [place] [address] * Gamma GT (08/01/2025 10:02 AM CDT) GGT 24 10 - 50 Units/L Blood 08/01/2025 10:0 2 AM CDT 08/01/2025 10:07 AM CDT Sid Rayo MD LAB BLOOD ORDERABLES Fin al Result Performing Organization Address [facility] de Phone Number [facility] [place] [address] * Ferritin (08/01/2025 10:02 AM CDT) Ferritin 244 30 - 400 ng/mL Blood 08/01/2025 10:0 2 AM CDT 08/01/2025 10:07 AM CDT Sid Rayo MD LAB BLOOD ORDERABLES Fin al Result [facility] Department [place] [address] * Amylase (08/01/2025 10:02 AM CDT) Pathologist [facility] [place] Amylase 60 30 - 99 Units/L Blood 08/01/2025 10:0 2 AM CDT 08/01/2025 10:07 AM CDT Sid Rayo MD LAB BLOOD ORDERABLES Fin al Result Performing Organization Address [facility] [facility] de Phone Number [facility] [place] [address] * Comprehensive metabolic panel (08/01/2025 10:02 AM CDT) [facility] Sodium 140 135 - 145 mmol/L Potassium, pl 4.1 3.3 - 4.9 mmol/L [facility] Chloride 102 97 - 110 mmol/L [facility] CO2 30 22 - 32 mmol/L [facility] Anion gap 8 2 - 15 mmol/L [facility] BUN 14 6 - 25 mg/dL [facility] Creatinine 0.90 0.80 - 1.30 mg/dL [facility] Glucose 93 70 - 199 mg/dL [facility] Comment: Interpretive Data Fasting glucose >/= [...] 2022. Calcium 9.4 8.5 - 10.3 mg/dL [facility] Bilirubin, total 0.7 0.1 - 1.2 mg/dL [facility] Protein, pl 6.9 6.5 - 8.5 g/dL [facility] Albumin 4.4 3.5 - 5.0 g/dL [facility] Alk phos 80 40 - 130 Units/L [facility] ALT 17 7 - 55 Units/L BANN[facility]ER [facility] AST 21 10 - 50 Units/L [facility] Blood 08/01/2025 10:0 2 AM CDT 08/01/2025 10:07 AM CDT us Sid Rayo MD LAB BLOOD ORDERABLES Fin al Result [facility] [place] [address] * XR Chest Pa Lateral 2 Vw (07/28/2025 11:43 PM CDT) Anatomical Region Laterality Modality Body, Chest N/A Computed Radiogr aphy 07/29/2025 12:3 9 PM CDT Impressions 07/29/2025 12:39 PM CDT Comparison is made to a prior study dated 07/03/2025. There is an area of scarring in the lingula. No pleural effusion or pneumothorax. Cardiomediastinal silhouette is stable. Electronically signed by: Tyra Patel M.D. Narrative 07/29/2025 12:39 PM CDT EXAMINATION: XR CHEST PA LATERAL 2 VIEWS HISTORY: Chest pain Procedure Note Tyra Patel MD - 07/29/2025 EXAMINATION: XR CHEST PA LATERAL 2 VIEWS HISTORY: Chest pain IMPRESSION: Comparison is made to a prior study dated 07/03/2025. There is an area of scarring in the lingula. No pleural effusion or pneumothorax. Cardiomediastinal silhouette is stable. Electronically signed by: Tyra Patel M.D. us Ganesh Perez DNP IMG XR PROCEDURES Fin al Result * Troponin T high-sensitivity series (baseline, 2hr, 4hr, 6hr) (07/28/2025 10:59 PM CDT) Trop T hs 11 <=22 ng/L Comment: Interpretive Data For further hscTnT resources including the diagnostic algorithm and an aid in interpretation, copy and paste this link: [email or web address].testcatalog.org/show/[email or web address] Current Interpretive Data last revised 2020. Blood 07/28/2025 10:5 9 PM CDT 07/28/2025 11:02 PM CDT Ganesh Perez [facility] LAB BLOOD ORDERABLES Final Result [facility] [address] [place] [place] [address] * eGFR (07/28/2025 10:59 PM CDT) Pathologist [facility] [place] eGFR >90 >=60 mL/min/1. 73 m2 Comment: [...] interpretive data was last reviewed 2021. Blood 07/28/2025 10:5 9 PM CDT 07/28/2025 11:02 PM CDT Ganesh Perez [facility] LAB BLOOD ORDERABLES Final Result [facility] [address] [place] [address] * (ABNORMAL) Differential, auto (07/28/2025 10:59 PM CDT) Neutrophil abs 5.92 1.50 - 6.50 K/cumm Imm gran abs 0.07 0.00 - 0.10 K/cumm [facility] Lymphocyte abs 2.11 0.80 - 3.30 K/cumm [facility] Monocyte abs 0.92(H) 0.20 - 0.80 K/cumm [facility] Eosinophil abs 0.19 0.00 - 0.50 K/cumm [facility] Basophil abs 0.05 0.00 - 0.10 K/cumm [facility] Neutrophil pct 63.9 % [facility] Comment: Interpretive Data Percent cell count reference ranges are not reported, since discordance with absolute values may lead to misinterpretation of CBC data. Current Interpretive Data was last revised on 2018. Imm gran pct 0.8 % [facility] Comment: Interpretive Data Percent cell count reference ranges are not reported, since discordance with absolute values may lead to misinterpretation of CBC data. Current Interpretive Data was last revised on 2018. Lymphocyte pct 22.8 % [facility] Comment: Interpretive Data Percent cell count reference ranges are not reported, since discordance with absolute values may lead to misinterpretation of CBC data. Current Interpretive Data was last revised on 2018. Monocyte pct 9.9 % [facility] Comment: Interpretive Data Percent cell count reference ranges are not reported, since discordance with absolute values may lead to misinterpretation of CBC data. Current Interpretive Data was last revised on 2018. Eosinophil pct 2.1 % [facility] Comment: Interpretive Data Percent cell count reference ranges are not reported, since discordance with absolute values may lead to misinterpretation of CBC data. Current Interpretive Data was last revised on 2018. Basophil pct 0.5 % [facility] Comment: Interpretive Data Percent cell count reference ranges are not reported, since discordance with absolute values may lead to misinterpretation of CBC data. Current Interpretive Data was last revised on 2018. Blood 07/28/2025 10:5 9 PM CDT 07/28/2025 11:02 PM CDT Ganesh Perez [facility] LAB BLOOD ORDERABLES Final Result Performing Organization Address [facility]/ZIP Co de Phone Number [facility] [address] [place] [address] * (ABNORMAL) CBC with auto differential (07/28/2025 10:59 PM CDT) Pathologist [facility] [place] WBC 9.26 3.80 - 9.90 K/cumm Hgb 13.8 13.0 - 17.5 g/dL [facility] Hct 39.9 38.9 - 50.3 % [facility] Plt 196 150 - 400 K/cumm [facility] MPV 10.0 9.1 - 12.3 fL [facility] RBC 4.16(L) 4.30 - 5.80 M/cumm [facility] MCV 95.9 81.3 - 96.4 fL [facility] MCH 33.2 27.1 - 33.3 pg [facility] MCHC 34.6 32.3 - 35.7 g/dL [facility] RDW CV 11.8 11.1 - 14.9 % [facility] RDW SD 41.4 35.7 - 48.1 fL [facility] NRBC abs 0.00 0.00 - 0.01 K/cumm [facility] Blood 07/28/2025 10:5 9 PM CDT 07/28/2025 11:02 PM CDT Ganesh Perez [facility] LAB BLOOD ORDERABLES Final Result [facility] [address] [place] [address] * Comprehensive metabolic panel (07/28/2025 10:59 PM CDT) Pathologist [facility] [place] Sodium 138 135 - 145 mmol/L Potassium, pl 3.8 3.3 - 4.9 mmol/L [facility] Chloride 101 97 - 110 mmol/L [facility] CO2 24 22 - 32 mmol/L [facility] Anion gap 13 2 - 15 mmol/L [facility] BUN 14 6 - 25 mg/dL [facility] Creatinine 0.82 0.80 - 1.30 mg/dL [facility] Glucose 93 70 - 199 mg/dL [facility] Comment: Interpretive Data Fasting glucose >/= 126 [...] classification and Diagnosis of Diabetes Diabetes Care 2021; 46: S19-S40. Current interpretive data was last revised 2022. Calcium 9.6 8.5 - 10.3 mg/dL [facility] Bilirubin, total 0.7 0.1 - 1.2 mg/dL [facility] Protein, pl 6.9 6.5 - 8.5 g/dL [facility] Albumin 4.4 3.5 - 5.0 g/dL [facility] Alk phos 74 40 - 130 Units/L [facility] ALT 24 7 - 55 Units/L [facility] AST 30 10 - 50 Units/L [facility] Comment:Slightly Hemolyzed S pecimen Blood 07/28/2025 10:5 9 PM CDT 07/28/2025 11:02 PM CDT us Ganesh Perez [facility] LAB BLOOD ORDERABLES Final Result [facility] [address] Department [place] [address] * ECG 12 lead (07/28/2025 7:22 PM CDT) 07/28/2025 7:22 PM CDT Narrative [facility] - 07/29/2025 4:19 PM CDT Vent Rate: 70 bpm RR Interval: 854 msec NE Interval: 168 msec QRS Duration: 106 msec QT Interval: 413 msec QTC Interval: 433 msec P-R-T [place]: 57 - 3 - 26 degrees IMPRESSION: SINUS RHYTHM INCOMPLETE RIGHT BUNDLE BRANCH BLOCK MODERATE ST DEPRESSION ABNORMAL ECG Electronically Signed By: Sampson Owens MD us Cresencio Montana MD ECG ORDERABLES Final Result [facility] * eGFR (07/26/2025 8:20 AM CDT) eGFR >90 >=60 mL/min/1. 73 m2 Comment: [...] interpretive data was last reviewed 2021. Blood 07/26/2025 8:20 AM CDT 07/26/2025 8:28 AM CDT us Sid Rayo MD LAB BLOOD ORDERABLES Fin al Result [facility] Department [place] [address] * Differential, auto (07/26/2025 8:20 AM CDT) Neutrophil abs 3.93 1.50 - 6.50 K/cumm Comment:Testing performed by : [facility], [address] [place] [phone] Lymphocyte abs 1.48 0.80 - 3.30 K/cumm [facility] Comment:Testing performed by : [facility], [address] [place] [phone] Monocyte abs 0.72 0.20 - 0.80 K/cumm [facility] Comment:Testing performed by : [facility], [address] [place] [phone] Eosinophil abs 0.14 0.00 - 0.50 K/cumm [facility] Comment:Testing performed by : [facility], [address] [place] [address] Basophil abs 0.05 0.00 - 0.10 K/cumm [facility] Comment:Testing performed by : [facility], [address] [place] [address] Neutrophil pct 62.2 % [facility] Comment: Interpretive Data Percent cell count reference ranges are not reported, since discordance with absolute values may lead to misinterpretation of CBC data. Current Interpretive Data was last revised on 2018. Testing performed by: [facility], [address] [place] [phone] Lymphocyte pct 23.4 % [facility] Comment: Interpretive Data Percent cell count reference ranges are not reported, since discordance with absolute values may lead to misinterpretation of CBC data. Current Interpretive Data was last revised on 2018. Testing performed by: [facility], [address] [place] [phone] Monocyte pct 11.4 % [facility] Comment: Interpretive Data Percent cell count reference ranges are not reported, since discordance with absolute values may lead to misinterpretation of CBC data. Current Interpretive Data was last revised on 2018. Testing performed by: [facility], [address] [place] [phone] Eosinophil pct 2.3 % [facility] Comment: Interpretive Data Percent cell count reference ranges are not reported, since discordance with absolute values may lead to misinterpretation of CBC data. Current Interpretive Data was last revised on 2018. Testing performed by: [facility], [address] [place] [address] Basophil pct 0.7 % [facility] Comment: Interpretive Data Percent cell count reference ranges are not reported, since discordance with absolute values may lead to misinterpretation of CBC data. Current Interpretive Data was last revised on 2018. Testing performed by: [facility], [address] [place] [address] Blood 07/26/2025 8:20 AM CDT 07/26/2025 8:25 AM CDT us Sid Rayo MD LAB BLOOD ORDERABLES Fin al Result [facility] [place] [address] * (ABNORMAL) CBC with auto differential (07/26/2025 8:20 AM CDT) WBC 6.31 3.80 - 9.90 K/cumm Comment:Testing performed by : [facility], [address] [place] [address] Hgb 14.1 13.0 - 17.5 g/dL [facility] Comment:Testing performed by : [facility], [address] [place] [address] Hct 40.8 38.9 - 50.3 % [facility] Comment:Testing performed by : [facility], [address] [place] [address] Plt 177 150 - 400 K/cumm [facility] Comment:Testing performed by : [facility], [address] [place] [address] MPV 7.8 6.8 - 10.4 fL [facility] Comment:Testing performed by : [facility], [address] [place] [address] RBC 4.20(L) 4.30 - 5.80 M/cumm [facility] Comment:Testing performed by : [facility], [address] [place] [address] MCV 97.2(H) 81.3 - 96.4 fL [facility] Comment:Testing performed by : [facility], [address] [place], [place] [phone] MCH 33.6(H) 27.1 - 33.3 pg [facility] Comment:Testing performed by : [facility], [address] [place], [place] [phone] MCHC 34.5 32.3 - 35.7 g/dL [facility] Comment:Testing performed by : [facility], [address] [place], [place] [phone] RDW CV 12.5 11.1 - 14.9 % [facility] Comment:Testing performed by : [facility], [address] [place], [place] [phone] NRBC abs 0.00 0.00 - 0.01 K/cumm [facility] Comment:Testing performed by : [facility], [address] [place], [place] [phone] Blood 07/26/2025 8:20 AM CDT 07/26/2025 8:25 AM CDT us Sid Rayo MD LAB BLOOD ORDERABLES Fin al Result [facility] [place] [address] * aPTT (07/26/2025 8:20 AM CDT) aPTT 27 26 - 38 sec Comment: Interpretive Data Heparin therapeutic range: 66.0 - 100.0 seconds. Range based on correlation with therapeutic heparin activity range of 0.3 - 0.7 Units/mL. Current interpretive data was last revised on 2023. Blood 07/26/2025 8:20 AM CDT 07/26/2025 8:43 AM CDT Sid Rayo MD LAB BLOOD ORDERABLES Fin al Result Performing Organization Address [facility] de Phone Number [facility] [place] [address] * Protime-INR (07/26/2025 8:20 AM CDT) Pathologist [facility] [place] PT 10.7 10.2 - 13.5 sec INR 0.95 0.90 - 1.20 [facility] Comment: Interpretive data Oral anticoagulant therapeutic ranges: Venous thromboembolism prophylaxis or treatment: 2.0-3.0 CARDIOLOGY Standard range: 2.0-3.0 High-intensity range: 2.5-3.5 Refer to indication-specific guidelines for appropriate target ranges for prosthetic heart valve replacement. Current interpretive data was last revised on 2019. Blood 07/26/2025 8:20 AM CDT 07/26/2025 8:43 AM CDT Sid Rayo MD LAB BLOOD ORDERABLES Fin al Result Performing Organization Address [facility] de Phone Number [facility] [place] [address] * CRP (acute phase) (07/26/2025 8:20 AM CDT) [facility] CRP <0.5 <=10.0 mg/L Blood 07/26/2025 8:20 AM CDT 07/26/2025 8:43 AM CDT Sid Rayo MD LAB BLOOD ORDERABLES Fin al Result Performing Organization Address [facility] [place] [address] * Uric acid (07/26/2025 8:20 AM CDT) Pathologist [facility] [place] Uric acid 5.9 3.0 - 8.0 mg/dL Blood 07/26/2025 8:20 AM CDT 07/26/2025 8:28 AM CDT Sid Rayo MD LAB BLOOD ORDERABLES Fin al Result Performing Organization Address [facility] de Phone Number [facility] [place] [address] * Phosphorus (07/26/2025 8:20 AM CDT) [facility] Phosphorus, pl 3.2 2.3 - 4.5 mg/dL Blood 07/26/2025 8:20 AM CDT 07/26/2025 8:28 AM CDT Sid Rayo MD LAB BLOOD ORDERABLES Fin al Result Performing Organization Address [facility] de Phone Number [facility] [place] [address] * Lipase (07/26/2025 8:20 AM CDT) [facility] Lipase 40 10 - 99 Units/L Blood 07/26/2025 8:20 AM CDT 07/26/2025 8:28 AM CDT Sid Rayo MD LAB BLOOD ORDERABLES Fin al Result Performing Organization Address City/[facility] de Phone Number [facility] [place] [address] * Gamma GT (07/26/2025 8:20 AM CDT) [facility] GGT 22 10 - 50 Units/L Blood 07/26/2025 8:20 AM CDT 07/26/2025 8:28 AM CDT Sid Rayo MD LAB BLOOD ORDERABLES Fin al Result Performing Organization Address City/[facility]/ZIP Co de Phone Number [facility] [place] [address] * Ferritin (07/26/2025 8:20 AM CDT) [facility] Ferritin 226 30 - 400 ng/mL Blood 07/26/2025 8:20 AM CDT 07/26/2025 8:28 AM CDT us Sid Rayo MD LAB BLOOD ORDERABLES Fin al Result Performing Organization Address [facility] Co de Phone Number [facility] [place] [address] * Amylase (07/26/2025 8:20 AM CDT) [facility] Amylase 72 30 - 99 Units/L Blood 07/26/2025 8:20 AM CDT 07/26/2025 8:28 AM CDT us Sid Rayo MD LAB BLOOD ORDERABLES Fin al Result Performing Organization Address [facility] de Phone Number [facility] [place] [address] * Comprehensive metabolic panel (07/26/2025 8:20 AM CDT) [facility] Sodium 139 135 - 145 mmol/L Potassium, pl 3.7 3.3 - 4.9 mmol/L [facility] Chloride 100 97 - 110 mmol/L [facility] CO2 30 22 - 32 mmol/L [facility] Anion gap 9 2 - 15 mmol/L [facility] BUN 18 6 - 25 mg/dL [facility] Creatinine 0.89 0.80 - 1.30 mg/dL [facility] Glucose 87 70 - 199 mg/dL [facility] Comment: Interpretive Data Fasting glucose >/= [...] interpretive data was last revised 2022. Calcium 9.6 8.5 - 10.3 mg/dL [facility] Bilirubin, total 0.6 0.1 - 1.2 mg/dL [facility] Protein, pl 7.0 6.5 - 8.5 g/dL [facility] Albumin 4.4 3.5 - 5.0 g/dL [facility] Alk phos 86 40 - 130 Units/L [facility] ALT 17 7 - 55 Units/L [facility] AST 21 10 - 50 Units/L [facility] Blood 07/26/2025 8:20 AM CDT 07/26/2025 8:28 AM CDT us Sid Rayo MD LAB BLOOD ORDERABLES Fin al Result [facility] [place] [address] * eGFR (07/19/2025 8:20 AM CDT) eGFR >90 >=60 mL/min/1. 73 m2 Comment: [...] Inclusion of Race in Diagnosing Kidney Disease, GERBERSN 2020). The CKD-EPI equation should not be used for patients with unstable renal function and has not been validated in children and those over 70. Current interpretive data was last reviewed 2021. Blood 07/19/2025 8:20 AM CDT 07/19/2025 8:22 AM CDT us Sid Rayo MD LAB BLOOD ORDERABLES Fin al Result [facility] [place] [address] * Differential, auto (07/19/2025 8:20 AM CDT) Neutrophil abs 2.80 1.50 - 6.50 K/cumm Comment:Testing performed by : [facility], [address] [place] [address] Lymphocyte abs 1.43 0.80 - 3.30 K/cumm [facility] Comment:Testing performed by : [facility], [address] [place] [address] Monocyte abs 0.56 0.20 - 0.80 K/cumm [facility] Comment:Testing performed by : [facility], [address] [place] [address] Eosinophil abs 0.14 0.00 - 0.50 K/cumm [facility] Comment:Testing performed by : [facility], [address] [place] [address] Basophil abs 0.05 0.00 - 0.10 K/cumm [facility] Comment:Testing performed by : [facility], [address] [place] [address] Neutrophil pct 56.2 % [facility] Comment: Interpretive Data Percent cell count reference ranges are not reported, since discordance with absolute values may lead to misinterpretation of CBC data. Current Interpretive Data was last revised on 2018. Testing performed by: [facility], [address] [place] [address] Lymphocyte pct 28.7 % [facility] Comment: Interpretive Data Percent cell count reference ranges are not reported, since discordance with absolute values may lead to misinterpretation of CBC data. Current Interpretive Data was last revised on 2018. Testing performed by: [facility], [address] [place] [phone] Monocyte pct 11.2 % [facility] Comment: Interpretive Data Percent cell count reference ranges are not reported, since discordance with absolute values may lead to misinterpretation of CBC data. Current Interpretive Data was last revised on 2018. Testing performed by: [facility], [address] [place] [phone] Eosinophil pct 2.9 % [facility] Comment: Interpretive Data Percent cell count reference ranges are not reported, since discordance with absolute values may lead to misinterpretation of CBC data. Current Interpretive Data was last revised on 2018. Testing performed by: [facility], [address] [place] [phone] Basophil pct 1.1 % [facility] Comment: Interpretive Data Percent cell count reference ranges are not reported, since discordance with absolute values may lead to misinterpretation of CBC data. Current Interpretive Data was last revised on 2018. Testing performed by: [facility], [address] [place] [phone] Blood 07/19/2025 8:20 AM CDT 07/19/2025 8:22 AM CDT us Sid Rayo MD LAB BLOOD ORDERABLES Fin al Result [facility] [place] [address] * (ABNORMAL) CBC with auto differential (07/19/2025 8:20 AM CDT) WBC 4.97 3.80 - 9.90 K/cumm Comment:Testing performed by : [facility], [address] [place] [address] Hgb 14.3 13.0 - 17.5 g/dL [facility] Comment:Testing performed by : [facility], [address] [place], [place] [phone] Hct 41.5 38.9 - 50.3 % CERNER BJ Comment:Testing performed by : [facility], [address] [place], [place] [id number] Plt 182 150 - 400 K/cumm CERNER BJ Comment:Testing performed by : [facility], [address] [place] [address] MPV 8.4 6.8 - 10.4 fL CERNER BJ Comment:Testing performed by : [facility], [address] [place], [place] [id number] RBC 4.28(L) 4.30 - 5.80 M/cumm CERNER BJ Comment:Testing performed by : [facility], [address] [place], [place] [id number] MCV 96.9(H) 81.3 - 96.4 fL CERNER BJ Comment:Testing performed by : [facility], [address] [place] [address] MCH 33.4(H) 27.1 - 33.3 pg CERNER BJ Comment:Testing performed by : [facility], [address] [place] [address] MCHC 34.5 32.3 - 35.7 g/dL CERNER BJ Comment:Testing performed by : [facility], [address] [place] [address] RDW CV 12.6 11.1 - 14.9 % CERNER BJ Comment:Testing performed by : [facility], [address] [place], [place] [id number] NRBC abs 0.00 0.00 - 0.01 K/cumm CERNER BJ Comment:Testing performed by : [facility], [address] [place] [address] Blood 07/19/2025 8:20 AM CDT 07/19/2025 8:22 AM CDT Sid Rayo MD LAB BLOOD ORDERABLES Fin al Result Performing Organization Address [facility] de Phone Number [facility] [place] [address] * aPTT (07/19/2025 8:20 AM CDT) aPTT 27 26 - 38 sec Comment: Interpretive Data Heparin therapeutic range: 66.0 - 100.0 seconds. Range based on correlation with therapeutic heparin activity range of 0.3 - 0.7 Units/mL. Current interpretive data was last revised on 2023. Blood 07/19/2025 8:20 AM CDT 07/19/2025 8:40 AM CDT Sid Rayo MD LAB BLOOD ORDERABLES Fin al Result Performing Organization Address [facility] de Phone Number [facility] [place] [address] * Protime-INR (07/19/2025 8:20 AM CDT) PT 11.1 10.2 - 13.5 sec INR 0.98 0.90 - 1.20 [facility] Comment: Interpretive data Oral anticoagulant therapeutic ranges: Venous thromboembolism prophylaxis or treatment: 2.0-3.0 CARDIOLOGY Standard range: 2.0-3.0 High-intensity range: 2.5-3.5 Refer to indication-specific guidelines for appropriate target ranges for prosthetic heart valve replacement. Current interpretive data was last revised on 2019. Blood 07/19/2025 8:20 AM CDT 07/19/2025 8:40 AM CDT Sid Rayo MD LAB BLOOD ORDERABLES Fin al Result Performing Organization Address [facility] de Phone Number [facility] [place] [address] * CRP (acute phase) (07/19/2025 8:20 AM CDT) CRP <0.5 <=10.0 mg/L Blood 07/19/2025 8:20 AM CDT 07/19/2025 8:37 AM CDT Sid Rayo MD LAB BLOOD ORDERABLES Fin al Result Performing Organization Address [facility] [place] [address] * Uric acid (07/19/2025 8:20 AM CDT) Uric acid 5.3 3.0 - 8.0 mg/dL Blood 07/19/2025 8:20 AM CDT 07/19/2025 8:22 AM CDT Sid Rayo MD LAB BLOOD ORDERABLES Fin al Result Performing Organization Address [facility] [place] [address] * PSA diagnostic (07/19/2025 8:20 AM CDT) PSA-Total 3.07 <=5.40 ng/mL Comment: Interpretive Data AGE SEX [...] Current interpretive data last revised 22. Blood 07/19/2025 8:20 AM CDT 07/19/2025 8:22 AM CDT us Sid Rayo MD LAB BLOOD ORDERABLES Fin al Result [facility] [place] [address] * Phosphorus (07/19/2025 8:20 AM CDT) Phosphorus, pl 3.3 2.3 - 4.5 mg/dL Blood 07/19/2025 8:20 AM CDT 07/19/2025 8:22 AM CDT us Sdi Rayo MD LAB BLOOD ORDERABLES Fin al Result Performing Organization Address [facility] Co de Phone Number [facility] [place] [address] * Lipase (07/19/2025 8:20 AM CDT) Lipase 49 10 - 99 Units/L Blood 07/19/2025 8:20 AM CDT 07/19/2025 8:22 AM CDT us Sid Rayo MD LAB BLOOD ORDERABLES Fin al Result Performing Organization Address City/[facility] Co de Phone Number [facility] [place] [address] * Gamma GT (07/19/2025 8:20 AM CDT) GGT 21 10 - 50 Units/L Blood 07/19/2025 8:20 AM CDT 07/19/2025 8:22 AM CDT us Sid Rayo MD LAB BLOOD ORDERABLES Fin al Result Performing Organization Address City/[facility] Co de Phone Number [facility] [place] [address] * Ferritin (07/19/2025 8:20 AM CDT) [facility] Ferritin 221 30 - 400 ng/mL Blood 07/19/2025 8:20 AM CDT 07/19/2025 8:22 AM CDT Sid Rayo MD LAB BLOOD ORDERABLES Fin al Result Performing Organization Address City/[facility] de Phone Number [facility] [place] [address] * Amylase (07/19/2025 8:20 AM CDT) [facility] Amylase 66 30 - 99 Units/L Blood 07/19/2025 8:20 AM CDT 07/19/2025 8:22 AM CDT Sid Rayo MD LAB BLOOD ORDERABLES Fin al Result Performing Organization Address [facility] de Phone Number [facility] Department [place] [address] * (ABNORMAL) Comprehensive metabolic panel (07/19/2025 8:20 AM CDT) [facility] Sodium 140 135 - 145 mmol/L Potassium, pl 4.1 3.3 - 4.9 mmol/L [facility] Comment:Hemolyzed; Potassium value may be falsely elevated by as much as 0.3-0.5 mmol/L. Suggest redraw and reanalysis. Chloride 103 97 - 110 mmol/L [facility] CO2 28 22 - 32 mmol/L [facility] Anion gap 9 2 - 15 mmol/L [facility] BUN 17 6 - 25 mg/dL [facility] Creatinine 0.79(L) 0.80 - 1.30 mg/dL [facility] Glucose 84 70 - 199 mg/dL [facility] Comment: Interpretive Data Fasting glucose >/= [...] classification and Diagnosis of Diabetes Diabetes Care 2021; 46: S19-S40. Current interpretive data was last revised 2022. Calcium 9.6 8.5 - 10.3 mg/dL [facility] Bilirubin, total 0.6 0.1 - 1.2 mg/dL [facility] Protein, pl 7.0 6.5 - 8.5 g/dL [facility] Albumin 4.4 3.5 - 5.0 g/dL [facility] Alk phos 80 40 - 130 Units/L [facility] ALT 15 7 - 55 Units/L [facility] AST 28 10 - 50 Units/L [facility] Comment:Hemolyzed; result ma y be falsely elevated Blood 07/19/2025 8:20 AM CDT 07/19/2025 8:22 AM CDT us Sid Rayo MD LAB BLOOD ORDERABLES Fin al Result [facility] [place] [address] * TRANSTHORACIC ECHO (TTE) COMPLETE W DOPPLER/CF W CONTRAST (07/10/2025 2:58 PM CDT) EF Mod BP 71 % CONS SCIMAGE Anatomical Region Laterality Modality Ultrasound 07/10/2025 1:51 PM CDT Narrative 07/11/2025 8:34 AM CDT [facility] [place] [address] Transthoracic Echocardiographic Report Patient Name: KORY HUERTA R : 1955 (69y 9m) Sex: M Study Date: 07/10/2025 01:51:38 PM Ht(Inch): 70 Wt(Lb): 238.98 BSA: 2.25 Senior Software Engineer Analytics: Davon Menendez RDCS Location: [facility] Order Provider: VIVIANA REYNOSOUA Heart Rate: 61 BMI: 34.29 BP: 108 / 72 Ref Provider: BRADFORDSUDHRI PROCEDURES: Echocardiographic Report: Transthoracic complete echo with strain imaging and contrast, 2D, spectral and tissue Doppler, color flow Doppler, M-mode. Additional Procedures: Myocardial strain imaging was performed. Contrast: Contrast Enhancement was Employed: Due to suboptimal image quality with inadequate visualization of at least 2 of 16 LV wall segments in any view after initial imaging. Perflutren contrast was administered using the volume necessary to obtain adequate images. 0.8 ml Optison Administered, (2.2 ml wasted). INDICATIONS: Z79.899 Other information services assistant (current) drug therapy. CONCLUSIONS: 1. Normal left ventricular size based on volume index. Concentric LV remodeling. Normal left ventricular systolic function. The Ejection Fraction (Leggett's) is measured at 71 %. Normal diastolic function. The average global longitudinal strain is normal. 2. Normal right ventricular size. Normal right ventricular systolic function. TV S'= 0.13 m/s (normal function). 3. The estimated pulmonary artery systolic pressure is 20.0 mmHg. No pulm HTN. ATTESTATION: I have personally reviewed and interpreted this study without fellow or resident. DISCLAIMER: The study images and the final report will be retained in the patient chart by the Echo Laboratory for the legally required time period. This chart constitutes the legal record of any testing performed. FINDINGS: Left Ventricle: Normal left ventricular size based on volume index. Concentric LV remodeling. Normal left ventricular systolic function. The Ejection Fraction (Leggett's) is measured at 71 %. Normal diastolic function. The average global longitudinal strain is normal. The LV global strain is: -18.8 %. Right Ventricle: Normal right ventricular size. Normal right ventricular systolic function. TV S'= 0.13 m/s (normal function). Left Atrium: The left atrium is normal in size. Right Atrium: Right atrial dilatation. Mitral Valve: Normal mitral valve structure. No mitral regurgitation. Aortic Valve: Normal trileaflet aortic valve. No aortic regurgitation. The mean transaortic gradient is 2 mmHg. The aortic valve area by the continuity equation (using VTI) is 3.13 cm2. Aortic valve dimensionless index is 0.85. Tricuspid Valve: Normal tricuspid valve structure. Mild tricuspid regurgitation. The estimated pulmonary artery systolic pressure is 20.0 mmHg. No pulm HTN. Pulmonic Valve: Normal pulmonic valve structure. No pulmonic regurgitation. Pericardium: Normal pericardium without pericardial effusion. Aorta: Moderate aortic root dilation at sinuses of Valsalva. The ascending aorta is normal in size when indexed. IVC: IVC is normal in size. MEASUREMENTS: 2D/MM Value Range Doppler Value Range LVIDd 2D 4.84 cm [ 4.20 - 5.80 ] AV Peak Kris 1.1 m/s [ 1.0 - 1.7 ] LVIDs 2D 2.58 cm [ 2.50 - 4.00 ] AV Peak PG 4.84 mmHg IVSd 2D 0.96 cm [ 0.60 - 1.00 ] AV Mean PG 2 mmHg LVPWd 2D 1.06 cm [ 0.60 - 1.00 ] AV VTI 21.2 cm LV Thickness Ratio 0.9 LVOT Peak Kris 0.8 m/s [ 0.7 - 1.1 ] LV FS 2D 46.84 % [ 25.00 - 43.00 ] LVOT Peak PG 2.56 mmHg LV Mass 2D 178.49 g LVOT Mean PG 1 mmHg LV Mass Index 2D 79.28 g/m2 LVOT VTI 18.1 cm RWT 0.44 LVOT Diam 2.16 cm EDV Mod BP 168.41 ml [ 62.00 - 150.00 ] GAVINO VTI 3.13 cm2 LV EDV Index 74.80 ml/m2 LVOT/AV VTI 0.85 - Dimensionless index (DVI) ESV Mod BP 48.98 ml [ 21.00 - 61.00 ] MV E Peak Kris 0.6 m/s [ 0.6 - 1.3 ] EF Mod BP 71 % [ 52 - 72 ] MV A Peak Kris 0.5 m/s [ 1.0 - 1.2 ] LV GLS -18.8 % [ -25.0 - -18.0 ] MV E/A 1.1 ratio [ 0.8 - 1.5 ] LA Length 4C 6.21 cm MV Decel Time 296.14 msec [ 104.00 - 258.00 ] LA Length 2C 6.57 cm Med E` Kris 7.9 cm/sec [ 8.0 - 25.0 ] LA Volume BP 61.72 ml Lat E` Kris 10.9 cm/sec [ 10.0 - 25.0 ] LA Volume Index 27.41 ml/m2 [ 16.00 - 34.00 ] Average E/E` 6.38 RV Base Dimen 2D 3.9 cm [ 2.5 - 4.2 ] RV S` 12.83 cm/sec RV Mid Dimen 2D 2.6 cm PV Peak Kris 0.8 m/s [ 0.4 - 0.8 ] RV Length Dimen 2D 9.1 cm PV Peak PG 2.56 mmHg TAPSE 2.89 cm [ 1.71 - 5.00 ] RA Volume 81.64 ml RA Volume Index 36.26 ml/m2 IVC Diam 1.84 cm IVC Collapse 63 % AoR Diam 2D 4.32 cm [ 3.10 - 3.70 ] Ao Root Index 1.92 cm/m2 [ 1.00 - 2.00 ] Asc Ao Diam 2D 3.28 cm Asc Ao Index 1.46 cm/m2 Electronically Signed By: Khoi Moe M.D. 07/11/2025 8:34:13 AM CDT CC: Sudhir Reynoso M.D. Procedure Note Khoi Moe MD PhD - 07/11/2025 [facility] [place] [address] Transthoracic Echocardiographic Report Patient Name: KORY HUERTA R : 1955 (69y 9m) Sex: M Study Date: 07/10/2025 01:51:38 PM Ht(Inch): 70 Wt(Lb): 238.98 BSA: 2.25 Senior Software Engineer Analytics: Davon Menendez RDCS Location: [facility] Order Provider:SUDHIR REYNOSO Heart Rate: 61 BMI: 34.29 BP: 108 / 72 Ref Provider: SUDHIR REYNOSO PROCEDURES: Echocardiographic Report: Transthoracic complete echo with strain imagingand contrast, 2D, spectral and tissue Doppler, color flow Doppler, M-mode. Additional Procedures: Myocardial strain imaging was performed. Contrast: Contrast Enhancement was Employed: Due to suboptimal imagequality with inadequate visualization of at least 2 of 16 LV wall segments in any viewafter initial imaging. Perflutren contrast was administered using the volume necessaryto obtain adequate images. 0.8 ml Optison Administered, (2.2 ml wasted). INDICATIONS: Z79.899 Other information services assistant (current) drug therapy. CONCLUSIONS: 1. Normal left ventricular size based on volume index. Concentric LVremodeling. Normal left ventricular systolic function. The Ejection Fraction (Leggett's) ismeasured at 71 %. Normal diastolic function. The average global longitudinal strain isnormal. 2. Normal right ventricular size. Normal right ventricular systolicfunction. TV S'= 0.13 m/s (normal function). 3. The estimated pulmonary artery systolic pressure is 20.0 mmHg. No pulmHTN. ATTESTATION: I have personally reviewed and interpreted this study without fellow orresident. DISCLAIMER: The study images and the final report will be retained in the patientchart by the Echo Laboratory for the legally required time period. This chart constitutesthe legal record of any testing performed. FINDINGS: Left Ventricle: Normal left ventricular size based on volume index.Concentric LV remodeling. Normal left ventricular systolic function. The EjectionFraction (Leggett's) is measured at 71 %. Normal diastolic function. The average globallongitudinal strain is normal. The LV global strain is: -18.8 %. Right Ventricle: Normal right ventricular size. Normal right ventricularsystolic function. TV S'= 0.13 m/s (normal function). Left Atrium: The left atrium is normal in size. Right Atrium: Right atrial dilatation. Mitral Valve: Normal mitral valve structure. No mitral regurgitation. Aortic Valve: Normal trileaflet aortic valve. No aortic regurgitation. Themean transaortic gradient is 2 mmHg. The aortic valve area by the continuityequation (using VTI) is 3.13 cm2. Aortic valve dimensionless index is 0.85. Tricuspid Valve: Normal tricuspid valve structure. Mild tricuspidregurgitation. The estimated pulmonary artery systolic pressure is 20.0 mmHg. No pulm HTN. Pulmonic Valve: Normal pulmonic valve structure. No pulmonicregurgitation. Pericardium: Normal pericardium without pericardial effusion. Aorta: Moderate aortic root dilation at sinuses of Valsalva. The ascendingaorta is normal in size when indexed. IVC: IVC is normal in size. MEASUREMENTS: 2D/MM Value Range DopplerValue Range LVIDd 2D 4.84 cm [ 4.20 - 5.80 ] AV Peak Vel1.1 m/s [ 1.0 - 1.7 ] LVIDs 2D 2.58 cm [ 2.50 - 4.00 ] AV Peak PG4.84 mmHg IVSd 2D 0.96 cm [ 0.60 - 1.00 ] AV Mean PG2 mmHg LVPWd 2D 1.06 cm [ 0.60 - 1.00 ] AV VTI21.2 cm LV Thickness Ratio 0.9 LVOT Peak Vel0.8 m/s [ 0.7 - 1.1 ] LV FS 2D 46.84 % [ 25.00 - 43.00 ] LVOT Peak PG2.56 mmHg LV Mass 2D 178.49 g LVOT Mean PG1 mmHg LV Mass Index 2D 79.28 g/m2 LVOT VTI18.1 cm RWT 0.44 LVOT Diam2.16 cm EDV Mod BP 168.41 ml [ 62.00 - 150.00 ] GAVINO VTI3.13 cm2 LV EDV Index 74.80 ml/m2 LVOT/AV VTI0.85 - Dimensionless index (DVI) ESV Mod BP 48.98 ml [ 21.00 - 61.00 ] MV E Peak Vel0.6 m/s [ 0.6 - 1.3 ] EF Mod BP 71 % [ 52 - 72 ] MV A Peak Vel0.5 m/s [ 1.0 - 1.2 ] LV GLS -18.8 % [ -25.0 - -18.0 ] MV E/A1.1 ratio [ 0.8 - 1.5 ] LA Length 4C 6.21 cm MV Decel Srzi270.14 msec [ 104.00 - 258.00 ] LA Length 2C 6.57 cm Med E` Vel7.9 cm/sec [ 8.0 - 25.0 ] LA Volume BP 61.72 ml Lat E` Vel10.9 cm/sec [ 10.0 - 25.0 ] LA Volume Index 27.41 ml/m2 [ 16.00 - 34.00 ] Average E/E`6.38 RV Base Dimen 2D 3.9 cm [ 2.5 - 4.2 ] RV S`12.83 cm/sec RV Mid Dimen 2D 2.6 cm PV Peak Vel0.8 m/s [ 0.4 - 0.8 ] RV Length Dimen 2D 9.1 cm PV Peak PG2.56 mmHg TAPSE 2.89 cm [ 1.71 - 5.00 ] RA Yvcdmx57.64 ml RA Volume Index36.26 ml/m2 IVC Diam1.84 cm IVC Collapse 63 % AoR Diam 2D 4.32 cm [ 3.10 - 3.70 ] Ao Root Index 1.92 cm/m2 [ 1.00 - 2.00 ] Asc Ao Diam 2D3.28 cm Asc Ao Index1.46 cm/m2 Electronically Signed By: Khoi Moe M.D. 07/11/2025 8:34:13 AM CDT CC: Sudhir Reynoso M.D. us Sudhir Reynoso MD CV ECHO PROCEDURES Fi nal Result * NM bone scan whole body (07/03/2025 3:00 PM CDT) Anatomical Region Laterality Modality N/A Nuclear Medicine 07/03/2025 4:45 PM CDT Impressions 07/04/2025 11:55 PM CDT No scintigraphic evidence of osseous metastatic disease. Dictated by: Duglas Herman M.D. The radiology attending physician has personally reviewed this study, and had reviewed and/or edited this written report and agrees with it. Electronically signed by: Brittaney Beltrán MD, Ph.D Narrative 07/04/2025 11:55 PM CDT EXAMINATION: BONE SCINTIGRAPHY (WHOLE-BODY) DATE OF STUDY: 07/03/2025 RADIOPHARMACEUTICAL: 19.79 mCi Tc-99m MDP i.v. HISTORY: 69-year-old man with prostate cancer, Chandu 4+5. Initial therapy with prostatectomy followed by salvage radiation and ADT x6 months. 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 Indeterminate bone lesions not much changed over the last year, suspicion for fibro-osseous dysplasia. 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 Assess for osseous metastatic disease FINDINGS: Delayed whole-body scintigrams were obtained. Prior nuclear medicine studies used for comparison: [facility] PET/CT on 04/24/2025. Other radiographic comparisons: Same day CT chest, abdomen and pelvis. There is degenerative pattern of uptake in the knees and shoulders. No other foci of abnormal tracer uptake. Procedure Note Brittaney Mireles MD PhD - 07/04/2025 EXAMINATION: BONE SCINTIGRAPHY (WHOLE-BODY) DATE OF STUDY: 07/03/2025 RADIOPHARMACEUTICAL: 19.79 mCi Tc-99m MDP i.v. HISTORY: 69-year-old man with prostate cancer, Chandu 4+5. Initial therapy with prostatectomy followed by salvage radiation and ADT x6 months. 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 Indeterminate bone lesions not much changed over the last year, suspicion for fibro-osseous dysplasia. 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 Assess for osseous metastatic disease FINDINGS: Delayed whole-body scintigrams were obtained. Prior nuclear medicine studies used for comparison: [facility] PET/CT on 04/24/2025. Other radiographic comparisons: Same day CT chest, abdomen and pelvis. There is degenerative pattern of uptake in the knees and shoulders. No other foci of abnormal tracer uptake. IMPRESSION: No scintigraphic evidence of osseous metastatic disease. Dictated by: Duglas Herman M.D. The radiology attending physician has personally reviewed this study, and had reviewed and/or edited this written report and agrees with it. Electronically signed by: Brittaney Beltrán MD, Ph.D us Sid Rayo MD IMG NM PROCEDURES Final Result * Troponin I high-sensitivity (07/03/2025 12:36 PM CDT) Trop I hs 5 <=35 ng/L Comment: Interpretive Data For further hscTnI resources including the diagnostic algorithm and an aid in interpretation, copy and paste this link: [email or web address].testcatalog.org/[email or web address] Current Interpretive Data last revised 2020. Blood 07/03/2025 12:3 6 PM CDT 07/03/2025 12:59 PM CDT us Sudhir Reynoso MD LAB BLOOD ORDERABLES Final Result [facility] [place] [address] * Pro B-type natriuretic peptide (07/03/2025 12:36 PM CDT) NT-proBNP 298 <=300 pg/mL Comment: Interpretive Comments: A. Dyspnea in Acute Care Setting All Ages: < 300 pg/ml, acute heart failure unlikely. < 50 yrs: 300 - 450 pg/ml, further investigation warranted. > 450 pg/ml, acute heart failure likely. 50 - 74 yrs: 300 - 900 pg/ml, further investigation warranted. > 900 pg/ml, acute heart failure likely . > or = 75 yrs: 450 - 1800 pg/ml, further investigation warranted. > 1800 pg/ml, acute heart failure likely. B. Non-acute Setting < 75 yrs < 125 pg/ml, rules out heart failure. > or = 125 pg/ml, further investigation warranted. > or = 75 yrs < 450 pg/ml, rules out heart failure. > or = 450 pg/ml, further investigation warranted. - Knowledge of each individual patient's NT-proBNP range may be more useful than using similar cut-points for every patient. Please note that marked elevations in NT-proBNP levels may be observed in state other than Left Ventricular Congestive Failure, including: acute coronary syndromes, right heart strain/failure (including pulmonary embolism and cor pulmonale), critical illness, renal failure, as well as advanced age. - References: 1. Eliud BARRAGAN et.al. Eur Heart J. 2006:27:330-337. 2. Dorys RW, Ab BASSETT. J. AM Evans Cardiol: Cardiovasc Imag. 2009;2: 216- 225. Interpretive Data Last Revised Date: 2018. Blood 07/03/2025 12:3 6 PM CDT 07/03/2025 12:59 PM CDT us Sudhir Reynoso MD LAB BLOOD ORDERABLES Final Result [facility] [place] [address] * (ABNORMAL) Lipoprotein a (LPa) (07/03/2025 12:36 PM CDT) Lipoprotein A 140(H) <75 nmol/L [place] Comment: Lp(a) confers increased risk for coronary disease and aortic stenosis starting at concentrations of 75 nmol/L and greater. Lp(a) >=125 nmol/L is considered a risk-enhancing factor for cardiovascular disease by several professional societies. Clinician-patient discussion of therapeutic strategy is warranted. ADDITIONAL INFORMATION Please notice that Lp(a) values are reported in molar units (nmol/L). These units are recommended by professional society guidelines and expert opinion statements. Measured results and risk thresholds are higher than those generated using mass units (mg/dL). Cardiovascular risk increases starting at 75 nmol/L. Lp(a) >=125 nmol/L is considered a risk enhancing factor by the [place] [employer]. This test has been modified from the research instrumentation technician's instructions. Its performance characteristics were determined by [facility] in a manner consistent with CLIA requirements. This test has not been cleared or approved by the U.S. Food and Drug Administration. Test Performed by: [place] [address] Database Security Expert: Mitchel Greenfield Ph.D.; CLIA# [id number] Blood 07/03/2025 12:3 6 PM CDT 07/03/2025 2:35 PM CDT us Sudhir Reynoso MD LAB BLOOD ORDERABLES Final Result Performing Organization Address City/[facility]/ZIP Co de Phone Number [facility] [place] [address] [place] [facility] * CRP (acute phase) (07/03/2025 12:36 PM CDT) CRP <0.5 <=10.0 mg/L Blood 07/03/2025 12:3 6 PM CDT 07/03/2025 12:59 PM CDT us Sid Rayo MD LAB BLOOD ORDERABLES Fin al Result [facility] [place] [address] * Lipid panel (07/03/2025 12:36 PM CDT) Cholesterol 179 30 - 199 mg/dL Comment: Interpretive Data Ages < or = 19 years Acceptable: <170 mg/dL Borderline high: 170-199 mg/dL High: >or= 200 mg/dL Ages > or = 20 years Desirable: <200 mg/dL Borderline high: 200-239 mg/dL High: >or= 240 mg/dL Literature References: 1. Expert Panel on Integrated Guidelines for Cardiovascular Health and Risk Reduction in Children and Adolescents. Pediatrics 2011;128:S213 2. NCEP Expert Panel. Circulation 2004;110:227 Current Interpretive Data was last revised on 2018. Triglycerides 90 <=149 mg/dL [facility] Comment: Interpretive Data Ages < or = 9 years Acceptable: <75 mg/dL Borderline high: 75-99 mg/dL High: >or= 100 mg/dL Ages 10 to 20 years Acceptable: <90 mg/dL Borderline high: 90-129 mg/dL High: >or= 130 mg/dL Ages > or = 20 years Desirable: <150 mg/dL Borderline high: 150-199 mg/dL High: 200-499 mg/dL Very high: >or= 499 mg/dL Literature References: 1. Expert Panel on Integrated Guidelines for Cardiovascular Health and Risk Reduction in Children and Adolescents. Pediatrics 2011;128:S213 2. NCEP Expert Panel. Circulation 2004;110:227 Current Interpretive Data was last revised on 2018. HDL 76 >=40 mg/dL [facility] Comment: Interpretive Data Ages < or = 19 years Acceptable: >45 mg/dL Borderline low: 40-45 mg/dL Low: <40 mg/dL Ages > or = 20 years Desirable: >or= 60 mg/dL Low: <40 mg/dL Literature References: 1. Expert Panel on Integrated Guidelines for Cardiovascular Health and Risk Reduction in Children and Adolescents. Pediatrics 2011;128:S213 2. NCEP Expert Panel. Circulation 2004;110:227 Current Interpretive Data was last revised on 2018. LDL, calculated 87 <=129 mg/dL [facility] Comment: Interpretive Data Ages < or = 19 years Acceptable: <110 mg/dL Borderline high: 110-129 mg/dL High: >or= 130 mg/dL Ages > or = 20 years Optimal: <100 mg/dL Near optimal: 100-129 mg/dL Borderline high: 130-159 mg/dL High: >160 mg/dL Calculated using the Lewis LDL-C estimating equation. This equation was implemented on 2024. Prior to this date LDL-C was estimated using the Friedewald equation. Literature References: 1. Expert Panel on Integrated Guidelines for Cardiovascular Health and Risk Reduction in Children and Adolescents. Pediatrics 2011;128:S213 2. NCEP Expert Panel. Circulation 2004;110:227 3. Joshua Boateng et al. BILL Cardiol. 2019February 01;5(5):540-548. doi: 10.1001/[email or web address] Current Interpretive Data was last revised on 2024. Non-HDL Cholesterol 103 mg/dL [facility] Comment: Interpretive Data Ages < or = 19 years Acceptable: <120 mg/dL Borderline high: 120-144 mg/dL High: >145 mg/dL Ages > or = 20 years When triglycerides are >200 mg/dL, Non-HDL cholesterol is a secondary target of therapy with treatment goals that are 30 mg/dL greater than the LDL cholesterol target. Literature References: 1. Expert Panel on Integrated Guidelines for Cardiovascular Health and Risk Reduction in Children and Adolescents. Pediatrics 2011;128:S213 2. NCEP Expert Panel. Circulation 2004;110:227 Current Interpretive Data was last revised on 2018. Chol/HDL ratio 2 [facility] Blood 07/03/2025 12:3 6 PM CDT 07/03/2025 12:59 PM CDT us Sudhir Reynoso MD LAB BLOOD ORDERABLES Final Result [facility] [place] [address] * CT chest abdomen pelvis with contrast (07/03/2025 12:20 PM CDT) Anatomical Region Laterality Modality Body N/A Computed Tomogra phy 07/03/2025 1:08 PM CDT Impressions 07/03/2025 1:08 PM CDT 1. Status post prostatectomy with stable enhancing soft tissue at the posterior bladder neck which extends superiorly along the peritoneal reflection, right greater than left, again concerning for metastatic disease. 2. Stable omental nodularity concerning for peritoneal carcinomatosis. 3. Indeterminate left lower lobe 3 mm pulmonary nodule (series 3 image 58). Follow-up as clinically indicated. Electronically signed by: Isaak Zhu M.D. 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 Recent PSMA PET/CT with evidence of disease progression. TECHNIQUE: Transaxial computed tomographic images of the chest, abdomen and pelvis were obtained with intravenous contrast according to the standard protocol after the administration of 69 mL Opti-Ray 350 intravenous contrast. COMPARISON: MR pelvis prostate 06/03/2025 and PET/CT 05/23/2025 11/09/2023 FINDINGS: Chest: Patent trachea. No focal pneumonic consolidation. 3 mm pulmonary nodule in the medial left lower lobe seen on series 3 image 58. Calcified granuloma along the medial right lower lobe. No pleural effusion. No pneumothorax. Normal thyroid. No intrathoracic lymphadenopathy. Three-vessel coronary artery calcifications. Scattered atherosclerotic calcifications of the aorta and its major branches without aneurysmal dilation. The main pulmonary artery is normal in caliber without central filling defect. Normal heart size. No pericardial effusion. Abdomen/Pelvis: Hepatic segment 4B 1 cm low-density liver lesion which was not P SMA avid, likely cyst. Normal spleen. Normal pancreas. Hyperdense stone or sludge at the gallbladder neck without evidence of acute cholecystitis. No biliary tree dilation. Distal esophagus is unremarkable. Stomach is unremarkable. Duodenum and the remaining small bowel is unremarkable. Colon appears unremarkable. The appendix is not seen and may be surgically absent. No free air. Trace right paracolic gutter free fluid. No mesenteric fat stranding. Stable omental nodularity nodularity is seen in the upper and mid abdomen. Normal adrenal glands. Symmetric enhancement of the kidneys without hydronephrosis. Stable cysts in the right kidney which were not avid on PET. Distended bladder without wall thickening. Postoperative changes of prostatectomy with stable enhancing soft tissue extending superiorly to the right and the left from the neck of the bladder and abutting the sigmoid colon. The component on the right measures approximately 2.3 cm. The component on the left measures approximately 1.5 cm. The right soft tissue component extends into the space of Retzius. Scattered atherosclerotic calcifications of the abdominal aorta and its major branches without aneurysmal dilation. The portal vein and major branches are patent. The IVC is unremarkable. Evidence of pelvic mackenzie dissection bilaterally. No enlarged lymph nodes by size criteria. Small fat-containing umbilical and inguinal hernias. Grade 1 anterolisthesis of L4 on L5. Lytic lesion in the T6 and T12 vertebral bodies without uptake on recent PET/CT, likely hemangiomas. No suspicious osseous lesion. 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 Recent PSMA PET/CT with evidence of disease progression. TECHNIQUE: Transaxial computed tomographic images of the chest, abdomen and pelvis were obtained with intravenous contrast according to the standard protocol after the administration of 69 mL Opti-Ray 350 intravenous contrast. COMPARISON: MR pelvis prostate 06/03/2025 and PET/CT 05/23/2025 11/09/2023 FINDINGS: Chest: Patent trachea. No focal pneumonic consolidation. 3 mm pulmonary nodule in the medial left lower lobe seen on series 3 image 58. Calcified granuloma along the medial right lower lobe. No pleural effusion. No pneumothorax. Normal thyroid. No intrathoracic lymphadenopathy. Three-vessel coronary artery calcifications. Scattered atherosclerotic calcifications of the aorta and its major branches without aneurysmal dilation. The main pulmonary artery is normal in caliber without central filling defect. Normal heart size. No pericardial effusion. Abdomen/Pelvis: Hepatic segment 4B 1 cm low-density liver lesion which was not P SMA avid, likely cyst. Normal spleen. Normal pancreas. Hyperdense stone or sludge at the gallbladder neck without evidence of acute cholecystitis. No biliary tree dilation. Distal esophagus is unremarkable. Stomach is unremarkable. Duodenum and the remaining small bowel is unremarkable. Colon appears unremarkable. The appendix is not seen and may be surgically absent. No free air. Trace right paracolic gutter free fluid. No mesenteric fat stranding. Stable omental nodularity nodularity is seen in the upper and mid abdomen. Normal adrenal glands. Symmetric enhancement of the kidneys without hydronephrosis. Stable cysts in the right kidney which were not avid on PET. Distended bladder without wall thickening. Postoperative changes of prostatectomy with stable enhancing soft tissue extending superiorly to the right and the left from the neck of the bladder and abutting the sigmoid colon. The component on the right measures approximately 2.3 cm. The component on the left measures approximately 1.5 cm. The right soft tissue component extends into the space of Retzius. Scattered atherosclerotic calcifications of the abdominal aorta and its major branches without aneurysmal dilation. The portal vein and major branches are patent. The IVC is unremarkable. Evidence of pelvic mackenzie dissection bilaterally. No enlarged lymph nodes by size criteria. Small fat-containing umbilical and inguinal hernias. Grade 1 anterolisthesis of L4 on L5. Lytic lesion in the T6 and T12 vertebral bodies without uptake on recent PET/CT, likely hemangiomas. No suspicious osseous lesion. IMPRESSION: 1. Status post prostatectomy with stable enhancing soft tissue at the posterior bladder neck which extends superiorly along the peritoneal reflection, right greater than left, again concerning for metastatic disease. 2. Stable omental nodularity concerning for peritoneal carcinomatosis. 3. Indeterminate left lower lobe 3 mm pulmonary nodule (series 3 image 58). Follow-up as clinically indicated. Electronically signed by: Isaak Zhu M.D. us Sid Rayo MD IMG CT PROCEDURES Final Result * ECG 12 lead (07/03/2025 9:12 AM CDT) us Sudhir Reynoso MD ECG ORDERABLES Edite d Result - Final * Urinalysis reflex to microscopic (06/22/2025 1:34 PM CDT) Color, ur Yellow Yellow Clarity, ur Clear Clear [facility] Specific gravity, ur 1.021 1.003 - 1.030 [facility] pH, urine 6.0 [facility] Comment: Interpretive Data U rine pH is affected by diet, medications, systemic acid-base disturbances, and renal tubular function. pH may affect urinary stone formation. For example, urine pH below 6.0 may help reduce the tendency for calcium phosphate stones and pH greater than 6.0 may reduce the tendency for uric acid stone formation. Source: [employer] Current Interpretive Data was last revised on 2017 Protein, ur ql Negative Negative [facility] Glucose, ur ql Negative Negative [facility] Ketones, ur Negative Negative [facility] Bilirubin, ur Negative Negative [facility] Blood, ur Negative Negative [facility] Urobilinogen, ur <2.0 <2.0 mg/dL [facility] Nitrite, ur Negative Negative [facility] Leukocyte esterase, ur Negative [facility] UA reflex comment Reflex conditions for microscopic UA not met. [facility] Urine 06/22/2025 1:34 PM CDT 06/22/2025 1:34 PM CDT us Sid Rayo MD LAB URINE ORDERABLES Fin al Result [facility] [place] [address] * eGFR (06/22/2025 1:29 PM CDT) eGFR >90 >=60 mL/min/1. 73 m2 Comment: [...] interpretive data was last reviewed 2021. Blood 06/22/2025 1:29 PM CDT 06/22/2025 1:43 PM CDT us Sid Rayo MD LAB BLOOD ORDERABLES Fin al Result [facility] [place] [address] * Differential, auto (06/22/2025 1:29 PM CDT) Neutrophil abs 3.37 1.50 - 6.50 K/cumm Comment:Testing performed by : [facility], [address] [place] [phone] Lymphocyte abs 1.52 0.80 - 3.30 K/cumm [facility] Comment:Testing performed by : [facility], [address] [place] [phone] Monocyte abs 0.44 0.20 - 0.80 K/cumm [facility] Comment:Testing performed by : [facility], [address] [place], [place] [id number] Eosinophil abs 0.14 0.00 - 0.50 K/cumm [facility] Comment:Testing performed by : [facility], [address] [place] [phone] Basophil abs 0.03 0.00 - 0.10 K/cumm [facility] Comment:Testing performed by : [facility], [address] [place] [phone] Neutrophil pct 61.3 % [facility] Comment: Interpretive Data Percent cell count reference ranges are not reported, since discordance with absolute values may lead to misinterpretation of CBC data. Current Interpretive Data was last revised on 2018. Testing performed by: [facility], [address] [place] [phone] Lymphocyte pct 27.7 % [facility] Comment: Interpretive Data Percent cell count reference ranges are not reported, since discordance with absolute values may lead to misinterpretation of CBC data. Current Interpretive Data was last revised on 2018. Testing performed by: [facility], [address] [place] [phone] Monocyte pct 8.0 % [facility] Comment: Interpretive Data Percent cell count reference ranges are not reported, since discordance with absolute values may lead to misinterpretation of CBC data. Current Interpretive Data was last revised on 2018. Testing performed by: [facility], [address] [place] [phone] Eosinophil pct 2.5 % [facility] Comment: Interpretive Data Percent cell count reference ranges are not reported, since discordance with absolute values may lead to misinterpretation of CBC data. Current Interpretive Data was last revised on 2018. Testing performed by: [facility], [address] [place] [phone] Basophil pct 0.6 % [facility] Comment: Interpretive Data Percent cell count reference ranges are not reported, since discordance with absolute values may lead to misinterpretation of CBC data. Current Interpretive Data was last revised on 2018. Testing performed by: [facility], [address] [place] [phone] Blood 06/22/2025 1:29 PM CDT 06/22/2025 1:36 PM CDT Sid Rayo MD LAB BLOOD ORDERABLES Fin al Result Performing Organization Address City/[facility]/ZIP Co de Phone Number [facility] [place] [place] [address] * Thyroid Function [place] (06/22/2025 1:29 PM CDT) TSH 0.92 0.30 - 4.20 mcIUnit/mL Blood 06/22/2025 1:29 PM CDT 06/22/2025 1:43 PM CDT Sid Rayo MD LAB BLOOD ORDERABLES Fin al Result Performing Organization Address City/[facility]/ZIP Co de Phone Number [facility] [place] [address] * (ABNORMAL) CBC with auto differential (06/22/2025 1:29 PM CDT) WBC 5.51 3.80 - 9.90 K/cumm Comment:Testing performed by : [facility], [address] [place], [place] [phone] Hgb 13.2 13.0 - 17.5 g/dL [facility] Comment:Testing performed by : [facility], [address] [place], [place] [phone] Hct 38.5(L) 38.9 - 50.3 % [facility] Comment:Testing performed by : [facility], [address] [place], [place] [phone] Plt 202 150 - 400 K/cumm [facility] Comment:Testing performed by : [facility], [address] [place], [place] [phone] MPV 8.5 6.8 - 10.4 fL [facility] Comment:Testing performed by : [facility], [address] [place], [place] [phone] RBC 3.85(L) 4.30 - 5.80 M/cumm [facility] Comment:Testing performed by : [facility], [address] [place], [place] [phone] MCV 100.0(H) 81.3 - 96.4 fL [facility] Comment:Testing performed by : [facility], [address] [place] [address] MCH 34.3(H) 27.1 - 33.3 pg [facility] Comment:Testing performed by : [facility], [address] [place] [address] MCHC 34.3 32.3 - 35.7 g/dL [facility] Comment:Testing performed by : [facility], [address] [place], [place] [phone] RDW CV 13.2 11.1 - 14.9 % [facility] Comment:Testing performed by : [facility], [address] [place] [address] NRBC abs 0.00 0.00 - 0.01 K/cumm [facility] Comment:Testing performed by : [place] [facility], [address] [place] [phone] Blood 06/22/2025 1:29 PM CDT 06/22/2025 1:36 PM CDT Sid Rayo MD LAB BLOOD ORDERABLES Fin al Result Performing Organization Address City/[facility] Co de Phone Number [facility] [place] [address] * Hepatitis C antibody Blood (06/22/2025 1:29 PM CDT) Pathologist [facility] Hep C Ab Nonreactive Nonreactive Comment:Antibodies to HCV no t detected. Does NOT exclude the possibility of recent exposure to HCV. Current interpretive data was last revised on 22 Blood 06/22/2025 1:29 PM CDT 06/22/2025 2:03 PM CDT Sid Rayo MD LAB MICROBIOLOGY - GENER AL ORDERABLES Final Result Performing Organization Address [facility] de Phone Number [facility] [place] [address] * Hepatitis B core antibody, total Blood (06/22/2025 1:29 PM CDT) Pathologist [facility] [place] Hep B core IgG/IgM Nonreactive Nonreactive Blood 06/22/2025 1:29 PM CDT 06/22/2025 2:03 PM CDT Sid Rayo MD LAB MICROBIOLOGY - GENER AL ORDERABLES Final Result Performing Organization Address [facility] Co de Phone Number [facility] [place] [address] * Hepatitis B (HBV) DNA PCR, quantitative Blood (06/22/2025 1:29 PM CDT) [facility] HBV DNA Result Not Detected [facility] Comment: The quantifiable range of this assay is 10 IU/mL to 1,000,000,000 IU/mL (1.00 log IU/mL to 9.00 log IU/mL). Testing was performed by the MARLEY [id number] HBV Test version 2.0 ([employer] Testing performed at [facility] Current Interpretive Data was last revised on 2021. Blood 06/22/2025 1:29 PM CDT 06/22/2025 2:14 PM CDT Sid Rayo MD LAB MICROBIOLOGY - GENER AL ORDERABLES Final Result Performing Organization Address [facility] de Phone Number [facility] [place] [address] [facility] * Hepatitis C (HCV) RNA PCR, quantitative Blood (06/22/2025 1:29 PM CDT) [facility] HCV RNA result Not Detected [facility] Comment: The quantifiable range of this assay is 15 IU/mL to 100,000,000 IU/mL (1.18 log IU/mL to 8.00 log IU/mL). Testing was performed by the MARLEY [id number] HCV Test ([employer] Testing performed at [facility] Current Interpretive Data was last revised on 2021 Blood 06/22/2025 1:29 PM CDT 06/22/2025 2:14 PM CDT us Sid Rayo MD LAB MICROBIOLOGY - GENER AL ORDERABLES Final Result Performing Organization Address [facility] Co de Phone Number [facility] [place] [address] [facility] * Hepatitis B surface antibody (immune status) Blood (06/22/2025 1:29 PM CDT) [facility] HBsAb (immune status) Nonreactive Comment:This result is consi stent with a lack of immunity to Hepatitis B Virus when used in the setting of routine screening. Current interpretative data was last revised on 22 Blood 06/22/2025 1:29 PM CDT 06/22/2025 2:03 PM CDT Sid Rayo MD LAB MICROBIOLOGY - GENER AL ORDERABLES Final Result Performing Organization Address [facility] Co de Phone Number [facility] [place] [address] * Hepatitis B Surface Antigen Blood (06/22/2025 1:29 PM CDT) HepBsAg Nonreactive Nonreactive Blood 06/22/2025 1:29 PM CDT 06/22/2025 2:03 PM CDT Sid Rayo MD LAB MICROBIOLOGY - GENER AL ORDERABLES Final Result Performing Organization Address [facility] de Phone Number [facility] [place] [address] * aPTT (06/22/2025 1:29 PM CDT) aPTT 27 26 - 38 sec Comment: Interpretive Data Heparin therapeutic range: 66.0 - 100.0 seconds. Range based on correlation with therapeutic heparin activity range of 0.3 - 0.7 Units/mL. Current interpretive data was last revised on 2023. Blood 06/22/2025 1:29 PM CDT 06/22/2025 2:03 PM CDT Sid Rayo MD LAB BLOOD ORDERABLES Fin al Result Performing Organization Address [facility] Co de Phone Number [facility] [place] [address] * Protime-INR (06/22/2025 1:29 PM CDT) PT 11.5 10.2 - 13.5 sec INR 1.02 0.90 - 1.20 [facility] Comment: Interpretive data Oral anticoagulant therapeutic ranges: Venous thromboembolism prophylaxis or treatment: 2.0-3.0 CARDIOLOGY Standard range: 2.0-3.0 High-intensity range: 2.5-3.5 Refer to indication-specific guidelines for appropriate target ranges for prosthetic heart valve replacement. Current interpretive data was last revised on 2019. Blood 06/22/2025 1:29 PM CDT 06/22/2025 2:03 PM CDT Sid Rayo MD LAB BLOOD ORDERABLES Fin al Result Performing Organization Address [facility] de Phone Number [facility] Department [place] [address] * Uric acid (06/22/2025 1:29 PM CDT) Pathologist [facility] [place] Uric acid 5.3 3.0 - 8.0 mg/dL Blood 06/22/2025 1:29 PM CDT 06/22/2025 1:43 PM CDT Sid Rayo MD LAB BLOOD ORDERABLES Fin al Result Performing Organization Address [facility] de Phone Number [facility] [place] [address] * (ABNORMAL) Total testosterone (06/22/2025 1:29 PM CDT) Pathologist [facility] [place] Testosterone <5.0(L) 193.0 - 740.0 ng/dL Blood 06/22/2025 1:29 PM CDT 06/22/2025 2:03 PM CDT Sid Rayo MD LAB BLOOD ORDERABLES Fin al Result Performing Organization Address [facility] de Phone Number [facility] [place] [address] * PSA diagnostic (06/22/2025 1:29 PM CDT) [facility] PSA-Total 3.60 <=5.40 ng/mL Comment: Interpretive Data AGE SEX [...] Current interpretive data last revised 22. Blood 06/22/2025 1:29 PM CDT 06/22/2025 1:43 PM CDT Sid Rayo MD LAB BLOOD ORDERABLES Fin al Result Performing Organization Address City/[facility]/[place] [address] * Phosphorus (06/22/2025 1:29 PM CDT) [facility] Phosphorus, pl 3.1 2.3 - 4.5 mg/dL Blood 06/22/2025 1:29 PM CDT 06/22/2025 1:43 PM CDT Sid Rayo MD LAB [place]LOOD [place] [address] * Lipase (06/22/2025 1:29 PM CDT) [facility] Lipase 45 10 - 99 Units/L Blood 06/22/2025 1:29 PM CDT 06/22/2025 1:43 PM CDT us Sid Rayo MD LAB [place]LOOD [place] [address] * Gamma GT (06/22/2025 1:29 PM CDT) GGT 21 10 - 50 Units/L Blood 06/22/2025 1:29 PM CDT 06/22/2025 1:43 PM CDT us Sid Rayo MD LAB BLOOD ORDERABLES Fin al Result Performing Organization Address [facility] de Phone Number [facility] [place] [address] * Ferritin (06/22/2025 1:29 PM CDT) Ferritin 290 30 - 400 ng/mL Blood 06/22/2025 1:29 PM CDT 06/22/2025 1:43 PM CDT us Sid Rayo MD LAB BLOOD ORDERABLES Fin al Result Performing Organization Address [facility] Co de Phone Number [facility] [place] [address] * Amylase (06/22/2025 1:29 PM CDT) Amylase 62 30 - 99 Units/L Blood 06/22/2025 1:29 PM CDT 06/22/2025 1:43 PM CDT Sid Rayo MD LAB BLOOD ORDERABLES Fin al Result Performing Organization Address City/[facility] Co de Phone Number [facility] [place] [address] * Comprehensive metabolic panel (06/22/2025 1:29 PM CDT) Sodium 141 135 - 145 mmol/L Potassium, pl 3.8 3.3 - 4.9 mmol/L [facility] Chloride 103 97 - 110 mmol/L [facility] CO2 29 22 - 32 mmol/L [facility] Anion gap 9 2 - 15 mmol/L [facility] BUN 15 6 - 25 mg/dL [facility] Creatinine 0.92 0.80 - 1.30 mg/dL [facility] Glucose 111 70 - 199 mg/dL [facility] Comment: Interpretive Data Fasting glucose >/= [...] classification and Diagnosis of Diabetes Diabetes Care 2021; 46: S19-S40. Current interpretive data was last revised 2022. Calcium 9.4 8.5 - 10.3 mg/dL [facility] Bilirubin, total 0.8 0.1 - 1.2 mg/dL [facility] Protein, pl 6.7 6.5 - 8.5 g/dL [facility] Albumin 4.4 3.5 - 5.0 g/dL [facility] Alk phos 85 40 - 130 Units/L [facility] ALT 14 7 - 55 Units/L [facility] AST 22 10 - 50 Units/L [facility] Blood 06/22/2025 1:29 PM CDT 06/22/2025 1:43 PM CDT us Sid Rayo MD LAB BLOOD ORDERABLES Fin al Result [facility] [place] [address] from Last 3 Months Insurance BLUE [facility] MEDICARE MEDICARE [employer] MEDICARE Advance Directives For more information, please contact: [phone] * Full Code (Latest Code Status on File) Date Activated Date Inactivated Comments 03/07/2025 8:25 AM 03/07/2025 2:31 PM * Full Code Date Activated Date Inactivated Comments 08/21/2024 10:51 AM 08/21/2024 4:31 PM * Full Code Date Activated Date Inactivated Comments 03/29/2024 8:22 AM 03/29/2024 2:52 PM * Full Code Date Activated Date Inactivated Comments 09/08/2023 11:36 AM 09/08/2023 5:10 PM Care Teams Donation Worker Relationship Specialty Start Date End Date Kory Handley MD PCP - General Radiology 05/20/23 Kurtis Plaza MD [address] [place] [id number] Consulting Physician Urology 04/17/25 Sid Rayo MD [address] [place] [id number] Medical Oncology 04/17/25 Sushil Ferguson MD [address] [place] [id number] Radiation Oncology 05/07/25
[2025-09-13 21:35] LABS: Troponin I < 0.012 ng/mL (0.000-0.034)
[2025-09-14] VITALS (10 sets, daily range): BP systolic 104–111; BP diastolic 64–71; PULSE 77–93; RESP 17–22; TEMP 36.7–36.9; O2SAT 95–100
[2025-09-14 00:56] LABS: Troponin I < 0.012 ng/mL (0.000-0.034)
--- NOTE | 2025-09-14 07:13 | PC.NURSE ---
Bedside shift report received from Ashley RN, patient updated to plan of care, and updated that transport should be here shortly to get the patient over to [facility]. patient denied any questions or concerns.
--- NOTE | 2025-09-14 07:49 | PC.NURSE ---
report given to [facility] and patient was educated on transport and plan of care. Patient has intact and patent iv to right hand.
== END 2025-09-14 07:44 | disposition short-term general hospital (02) ==
PROVIDERS: Emergency Medicine; Emergency Provider Student in an Organized Health Care Education/Training Program; PCP Nurse Practitioner
DX: R41.82 Altered mental status, unspecified (principal); C61 Malignant neoplasm of prostate; I10 Essential (primary) hypertension; E78.5 Hyperlipidemia, unspecified; Z87.891 Personal history of nicotine dependence
CPT/HCPCS: 36415; 70450; 71045; 80053; 83690; 84484; 85025; 85610; 85730; 93005; 96360; 99285; J7030